=== PATIENT | female | born 1980 | race Hispanic/Latino ===

== ENCOUNTER → 2017-01-09 | Outpatient (CLI) | payer MEDICAID, OTHER ==
--- NOTE | 2017-01-09 19:19 | Diagnostic Imaging Report ---
OB ultrasound. INDICATION: Missed period. FINDINGS: There is a cystic area in the endometrial cavity with mean sac diameter of 7 mm. This would correspond with five weeks and 2 days of gestation and an JOÃO of 09/09/2017, presumably related to intrauterine . There is no embryo or yolk sac to confirm that this is indeed true intrauterine . Ovaries are not visualized. No definite adnexal mass demonstrated. IMPRESSION: Tiny cystic area in the endometrial stripe, without an embryo or yolk sac, could relate to an early normal , failed , or pseudo gestational sac of an ectopic . Followup serial beta-hCG and ultrasound in a week is recommended. Dictated by: Dictated on workstation # [id number]
== END ==
LOC: RAD 12:09
PROVIDERS: ATTEND Nurse Practitioner Family
DX: N92.6 Irregular menstruation, unspecified (principal)
CPT/HCPCS: 76817

== ENCOUNTER → 2017-01-19 | Outpatient (CLI) | payer MEDICAID ==
--- NOTE | 2017-01-19 16:53 | Diagnostic Imaging Report ---
INDICATION: Followup intrauterine . COMPARISON: 01/09/2017. FINDINGS: There is a single live intrauterine fetus present with crown-rump length measuring 6.5 mm consistent with a 6 week 4 day gestation. M-mode shows heartbeat of 120 beats per minute. No evidence of sub-chorionic fluid collections. IMPRESSION: 6 week 4 day live intrauterine . Dictated by: Dictated on workstation # [id number]
== END ==
LOC: RAD 13:53
PROVIDERS: ATTEND Family Medicine
DX: Z36 Encounter for antenatal screening of mother (principal); Z3A.01 Less than 8 weeks gestation of pregnancy
CPT/HCPCS: 76817

== ENCOUNTER 2017-02-23 18:17 | Emergency (ER) | payer MEDICAID ==
[~2017-02-23] VITALS: Ht 162.6 cm; Wt 86.2 kg
--- NOTE | 2017-02-23 18:59 | ED Psychosocial ---
General Chief Complaint: Psych/Social Disorder Stated Complaint: ANXIETY ATTACK Nursing Triage Note: Pt reported had a "panic attack" earlier today. Pt feeling improved now. Hx of 11 weeks . Source: patient Exam Limitations: no limitations History of Present Illness Time seen by provider: 18:56 Initial Comments To ER with reports of an anxiety attack that started about 440 p.m. today and lasted for about 15 minutes. At this time she feels better though not completely back to normal. She is 11 weeks . She was formerly on Klonopin and Paxil but discontinued these when she found out she was . Timing/Duration: constant Associated Symptoms: anxiety Allergies and Home Medications Allergies Coded Allergies: No Known Drug Allergies (Unverified , 02/23/17) Constitutional: see HPI EENTM: see HPI Respiratory: no symptoms reported Cardiovascular: no symptoms reported Genitourinary: no symptoms reported Musculoskeletal: no symptoms reported Skin: no symptoms reported Psychiatric/Neurological: See HPI, Anxiety Past Pdfgxtk-Hfptjm-Jkxvdu Hx Patient Social History Recent Foreign Travel: No Contact w/Someone Who Travel: No Recent Infectious Disease Expo: No Physical Exam Vital Signs Vital Sign - Last 12Hours 02/23/17 18:49 Temp 97.5 Pulse 82 Resp 16 B/P (MAP) 134/95 Pulse Ox 98 Capillary Refill : Less Than 3 Seconds General Appearance: WD/WN, no apparent distress HEENT: PERRL/EOMI, normal ENT inspection, TMs normal Neck: non-tender, full range of motion Respiratory: normal breath sounds, no respiratory distress, no accessory muscle use Gastrointestinal: normal bowel sounds, non tender, soft Neurologic/Psychiatric: alert, normal mood/affect, oriented x 3 Appearance/Memory: appropriate appearance, appropriate insight Behavior/Eye Contact: cooperative, good eye contact, normal speech Skin: normal color, warm/dry Progress/Results/Core Measures Results/Orders My Orders Orders - YESSI CUMMINGS APRN Diphenhydramine Tablet (Benadryl Tablet) (02/23/17 19:00) Medications Given in ED Current Medications Medications Dose Ordered Sig/Margot Route Start Time Stop Time Status Last Admin Dose Admin Diphenhydramine HCl 50 mg ONCE ONCE PO 02/23/17 19:00 02/23/17 19:01 DC 02/23/17 19:06 50 MG Vital Signs/I&O Vital Sign - Last 12Hours 02/23/17 18:49 Temp 97.5 Pulse 82 Resp 16 B/P (MAP) 134/95 Pulse Ox 98 Blood Pressure Mean: 108 Departure Communication Progress Notes 1923-feels back to normal Impression Impression: Primary Impression: Anxiety Disposition: 01 HOME, SELF-CARE Condition: Stable Departure-Patient Inst. Decision time for Depature: 18:58 Referrals: [facility] (PCP) Primary Care Physician LAZ DENSON MD (Family) Primary Care Physician Patient Instructions: Panic Disorder (DC) Add. Discharge Instructions: 1. You may take 1-2 Benadryl every 4-6 hours as needed for anxiety 2. Return to ER for any concerns All discharge instructions reviewed with patient and/or family. Voiced understanding. YESSI CUMMINGS CHISEL WORKER Feb 23, 2017 18:59
[2017-02-23] MEDS ORDERED: diphenhydrAMINE 25 MG TAB (BENADRYL) PO ONE (19:00)
[2017-02-23 19:25] VITALS: BP 0/0
== END 2017-02-23 19:25 | disposition home or self-care (01) ==
LOC: EDUNIT# 18:17 → ER 18:19
DX: F41.9 Anxiety disorder, unspecified (principal); Z3A.11 11 weeks gestation of pregnancy
CPT/HCPCS: 99283

== ENCOUNTER → 2017-04-24 | Outpatient (CLI) | payer MEDICAID ==
--- NOTE | 2017-04-24 13:10 | Diagnostic Imaging Report ---
INDICATION: survey. TECHNIQUE: Multiple real-time grayscale images were obtained over the gravid uterus. COMPARISON: None FINDINGS: heart rate is 158 beats per minute. The placenta is anterior. No placenta previa. The cervix is 3.8 cm in length and is closed. The bladder and two umbilical arteries are demonstrated. There is no ventriculomegaly. The posterior fossa is not well seen. No hydronephrosis or cystic mass at the level of the kidneys. The spine, four-chamber view and cord insertion are not well seen due to position. Biometrical measurements are as follows: Biparietal 4.7 cm, age 20 weeks 3 days. Head circumference 18.4 cm, age 20 weeks 6 days. Abdominal circumference 15.8 cm, age 21 weeks 0 days. Femur length 3.2 cm, age 20 weeks 2 days. Sonographic estimate age: 20 weeks 5 days. Sonographic estimated date of delivery: 08-06-17. Estimated Weight: 363 gm (+/- 53 gm). LMP percentile: 70%. heart rate: 158 beats per minute. number: 1 of 1. IMPRESSION: Incomplete survey. Reevaluation within two weeks is recommended for the spine, four-chamber view, cord insertion, and the posterior fossa and the brain. Dictated by: Dictated on workstation # [id number]
== END ==
LOC: RAD 09:44
PROVIDERS: ATTEND Family Medicine
DX: Z36 Encounter for antenatal screening of mother (principal); Z3A.16 16 weeks gestation of pregnancy
CPT/HCPCS: 76805

== ENCOUNTER → 2017-07-05 | Outpatient (CLI) | payer MEDICAID | LOC: LAB 09:39 | PROVIDERS: ATTEND Family Medicine | DX: R73.02 Impaired glucose tolerance (oral) (principal) | CPT/HCPCS: 36415; 82951; 82952; 82962 ==

== ENCOUNTER → 2017-08-08 | Outpatient (CLI) | payer MEDICAID ==
--- NOTE | 2017-08-08 21:23 | Diagnostic Imaging Report ---
INDICATION: Gestational diabetes. Follow-up growth. Follow-up spine and four-chamber view, cord insertion, posterior fossa and brain. TECHNIQUE: Multiple real-time grayscale images were obtained over the gravid uterus. COMPARISON: 04/24/2017. FINDINGS: heart rate is 165 beats per minute. The amniotic fluid index is 4.6 cm. position is cephalic. The placenta is anterior and to the right with no placenta previa. The cervix is 3.3 cm in length and appears to be closed. The spine and the four-chamber view appear unremarkable. The intracranial structures and cord are not well seen. The growth parameters are: Biparietal diameter: 32 weeks and 5 days, at 3rd percentile. Head circumference: 34 weeks and 4 days, at 7th percentile. Abdominal circumference: 34 weeks and 6 days at 45th percentile. Femur length: 33 weeks and 0 days 3rd percentile. These average at: 33 weeks and 6 days. This compares to gestational age of 35 weeks and 2 days based on JOÃO of 09/10/2017. The low amniotic fluid findings were called to the nurse taking care of the patient by Ms. Jessica Kahn, the technologist who performed the exam at 1325 hours. IMPRESSION: 1. The growth parameters are at the lower limits of normal. 2. The spine and four-chamber view are well seen at this time with no significant abnormality. The intracranial structures and the cord are not well seen. 3. Oligohydramnios. Dictated by: Dictated on workstation # [id number]
== END ==
LOC: RAD 12:24
PROVIDERS: ATTEND Family Medicine
DX: O24.419 Gestational diabetes mellitus in pregnancy, unspecified control (principal); O41.03X0 Oligohydramnios, third trimester, not applicable or unspecified; Z3A.33 33 weeks gestation of pregnancy
CPT/HCPCS: 76816

== ENCOUNTER → 2017-08-14 | Outpatient (CLI) | payer MEDICAID ==
--- NOTE | 2017-08-14 10:58 | Diagnostic Imaging Report ---
OB ultrasound, biophysical profile. INDICATION: Oligohydramnios. COMPARISON: 08/08/2017. FINDINGS: heart rate is 161 beats per minutes. The total CLARITA is 5.4 cm. The presentation is cephalic. The biophysical profile parameters are meeting criteria with score of 8 out of 8. The intracranial structures are still not seen on this exam, and the cord insertion is also not seen due to position and advanced age of the fetus. IMPRESSION: Total biophysical profile is 8 out of 8. Stable mild oligohydramnios. Dictated by: Dictated on workstation # [id number]
== END ==
LOC: RAD 09:40
PROVIDERS: ATTEND Family Medicine
DX: O24.410 Gestational diabetes mellitus in pregnancy, diet controlled (principal); O41.03X0 Oligohydramnios, third trimester, not applicable or unspecified; Z3A.00 Weeks of gestation of pregnancy not specified
CPT/HCPCS: 76819

== ENCOUNTER → 2017-08-20 | Outpatient (CLI) | payer MEDICAID ==
[~2017-08-20] VITALS: Ht 162.6 cm; Wt 96.6 kg
--- NOTE | 2017-08-20 14:01 | Diagnostic Imaging Report ---
EXAMINATION: OB ultrasound/biophysical profile. INDICATION: Cramping. FINDINGS: The heart rate is 153 BPM. The position is cephalic. The CLARITA is 6.8 cm. The placenta is anterior without placenta previa. The biophysical profile criteria are met with a total score of 8 out of 8 points. IMPRESSION: The total biophysical profile score is 8 out of 8 points. Dictated by: Dictated on workstation # [id number]
[2017-08-20 14:02] VITALS: BP 135/78
== END ==
LOC: RAD 12:45
PROVIDERS: ATTEND Family Medicine
DX: Z36.2 Encounter for other antenatal screening follow-up (principal); Z3A.36 36 weeks gestation of pregnancy
CPT/HCPCS: 76819

== ENCOUNTER → 2017-08-22 | Outpatient (CLI) | payer MEDICAID ==
--- NOTE | 2017-08-22 11:57 | Diagnostic Imaging Report ---
INDICATION: Gestational diabetes. TECHNIQUE: Multiple real-time grayscale images were obtained over the gravid uterus. COMPARISON: 08/20/17 FINDINGS: heart rate is 170 beats per minutes. The position is cephalic. The placenta is anterior with no placenta previa. CLARITA is 10.2 CM. Biometrical measurements are as follows: Biparietal 8.36 cm, age 33 weeks 5 days, less than the 2nd percentile. Head circumference 31.29 cm, age 35 weeks 1 days less than 2nd percentile. Abdominal circumference 31.59 cm, age 35 weeks 4 days, at 17th percentile. Femur length 6.96 cm, age 35 weeks 5 days, at 14th percentile. Sonographic estimate age: 35 weeks 1 days. Sonographic estimated date of delivery: 09/25/2017. Estimated Weight: 2647 gm (+/- 385 gm). LMP percentile: 13%. heart rate: 170 beats per minute. number: 1 of 1. IMPRESSION: The head circumference and biparietal diameter are both at less than 2nd percentile compared to the gestational age. Dictated by: Dictated on workstation # [id number]
== END ==
LOC: RAD 10:51
PROVIDERS: ATTEND Family Medicine
DX: O24.410 Gestational diabetes mellitus in pregnancy, diet controlled (principal); Z3A.35 35 weeks gestation of pregnancy
CPT/HCPCS: 76816

== ENCOUNTER 2017-08-26 18:18 | Inpatient (IN) | payer MEDICAID ==
[~2017-08-26] VITALS: Ht 162.6 cm; Wt 97.6 kg
[2017-08-26] VITALS (7 sets, daily range): BP systolic 136–162; BP diastolic 76–102
[2017-08-26] MEDS ORDERED: D5 1/2 NS 1000 ML IV SOLUTION 1,000 ML IV ONE ×2 (18:36→19:24)
[2017-08-26] MEDS ORDERED: MINERAL OIL CONCENTRATE 99.9% 15 ML UDC TOP PRN (18:45)
[2017-08-26] MEDS ORDERED: D5 1/2 NS 1000 ML IV SOLUTION 1,000 ML IV SCH (19:00)
[2017-08-26] MEDS ORDERED: DINOPROSTONE 10 MG (CERVIDIL) INSERT PV ONE (19:00)
[2017-08-26 19:17] LABS: BASOPHILS % (AUTO) 0 % (0-10); EOSINOPHILS # (AUTO) 0.1 10^3/uL (0.0-0.3); EOSINOPHILS % (AUTO) 1 % (0-10); LYMPHOCYTES % (AUTO) 31 % (12-44); MEAN CORPUSCULAR HEMOGLOBIN 31 PG (25-34); MEAN CORPUSCULAR HGB CONC 35 G/DL (32-36); MEAN CORPUSCULAR VOLUME 88 FL (80-99); MEAN PLATELET VOLUME 11.2 FL (7.4-10.4); MONOCYTES # (AUTO) 0.5 X 10^3 (0.0-1.0); MONOCYTES % (AUTO) 8 % (0-12); NEUTROPHILS % (AUTO) 61 % (42-75); PLATELET COUNT 210 10^3/uL (130-400); WHITE BLOOD COUNT 6.6 10^3/uL (4.3-11.0)
[2017-08-26 20:01] LABS: BILIRUBIN,URINE NEGATIVE (NEGATIVE); KETONES,URINE NEGATIVE (NEGATIVE); LEUKOCYTE ESTERASE ,URINE 2+ (NEGATIVE); NITRITE,URINE NEGATIVE (NEGATIVE); PH,URINE 6 (5-9); PROTEIN,URINE 2+ (NEGATIVE); UROBILINOGEN,URINE NORMAL (NORMAL)
[2017-08-26 20:15] LABS: SQUAMOUS EPITHELIAL CELL,UR 0-2 /HPF; WBC,URINE 0-2 /HPF
[2017-08-26] MEDS ORDERED: CATHETER FLUSH 10 ML SYR IV SCH (22:00)
[2017-08-27] VITALS (34 sets, daily range): BP systolic 125–194; BP diastolic 62–110
[2017-08-27] MEDS: D5 NS 1000 ML IV SOLUTION 1,000 ML IV SCH ×2 (03:05→10:45)
[2017-08-27] MEDS ORDERED: INFLUENZA TRIvalent 2017-2018 0.5 ML/45 MCG SYR IM ONE (07:30)
--- NOTE | 2017-08-27 07:30 | History & Physical-OB ---
OB - Chief Complaint & HPI Date/Time Date of Admission: Date of Admission: Aug 26, 2017 at 18:18 Time Seen by Provider: 07:25 Chief Complaint/History OB-Reason for Admission/Chief: Induction of Labor Hx : 1 Expected Date of Delivery: Sep 08, 2017 Gestational Age in Weeks: 38 Gestational Age in Days: 2 Indication for induction: medical complication (Diet Controlled DM, Oligo, IUGR ) Allergies and Home Medications Allergies Coded Allergies: No Known Drug Allergies (Unverified , 02/23/17) OB - History Hx of Present Care: Yes Ultrasounds: Normal mid trimester US Obstetrical Complications: Gestational Diabetes, Growth Restriction Medical Complications: None Information Induced Hypertension: No Maternal Gestational Diabetes: Yes Hemorrhage: No Obstetrical History Hx : 1 Delivery History Adverse Rxn to Tranfusion: No Patient Past Medical History PCOS Social History/Family History HIV/AIDS: No Recent Infectious Disease Expo: No Sexually Transmitted Disease: No Alcohol Use: Denies Use Recreational Drug Use: No 2nd Hand Smoke Exposure: No Immunizations Hepatitis A: Yes Hepatitis B: Yes Tetanus Booster (TDap): Less than 5yrs (06/21/17) Rubella: immune RPR/VDRL: Negative GBS Status: Negative HBsAG: Negative OB - Admission Exam Physical Exam Vitals: Vital Signs 08/27/17 08/27/17 04:00 07:00 Temp 98.5 Pulse 96 Resp 18 B/P (MAP) 162/91 O2 Delivery Room Air HEENT: NCAT Heart: Rhythm Normal Lungs: Clear Abdomen: Gravid Extremities: Normal Reflexes: Normal Cervical Dilatation: 5cm Effacement: 75% Station: -3 Membranes: Intact Accelerations: Accelerations Present Decelerations: No Decelerations Short Term Variability: Present Intensity: Moderate Labs Laboratory Tests Test 08/26/17 18:55 08/26/17 19:00 08/26/17 19:05 08/26/17 23:16 Range/Units White Blood Count 6.6 4.3-11.0 10^3/uL Red Blood Count 4.00 L 4.35-5.85 10^6/uL Hemoglobin 12.3 11.5-16.0 G/DL Hematocrit 35 35-52 % Mean Corpuscular Volume 88 80-99 FL Mean Corpuscular Hemoglobin 31 25-34 PG Mean Corpuscular Hemoglobin Concent 35 32-36 G/DL Red Cell Distribution Width 13.0 10.0-14.5 % Platelet Count 210 130-400 10^3/uL Mean Platelet Volume 11.2 H 7.4-10.4 FL Neutrophils (%) (Auto) 61 42-75 % Lymphocytes (%) (Auto) 31 12-44 % Monocytes (%) (Auto) 8 0-12 % Eosinophils (%) (Auto) 1 0-10 % Basophils (%) (Auto) 0 0-10 % Neutrophils # (Auto) 4.0 1.8-7.8 X 10^3 Lymphocytes # (Auto) 2.0 1.0-4.0 X 10^3 Monocytes # (Auto) 0.5 0.0-1.0 X 10^3 Eosinophils # (Auto) 0.1 0.0-0.3 10^3/uL Basophils # (Auto) 0.0 0.0-0.1 10^3/uL Urine Color YELLOW Urine Clarity CLEAR Urine pH 6 5-9 Urine Specific [place] 1.025 H 1.016-1.022 Urine Protein 2+ H NEGATIVE Urine Glucose (UA) 3+ H NEGATIVE Urine Ketones NEGATIVE NEGATIVE Urine Nitrite NEGATIVE NEGATIVE Urine Bilirubin NEGATIVE NEGATIVE Urine Urobilinogen NORMAL NORMAL MG/DL Urine Leukocyte Esterase 2+ H NEGATIVE Urine RBC (Auto) 1+ H NEGATIVE Urine RBC 0-2 /HPF Urine WBC 0-2 /HPF Urine Squamous Epithelial Cells 0-2 /HPF Urine Crystals NONE /LPF Urine Bacteria TRACE /HPF Urine Casts NONE /LPF Urine Mucus NEGATIVE /LPF Urine Culture Indicated NO Glucometer 125 H 111 H 70-110 MG/DL Test 08/27/17 03:03 Range/Units Glucometer 92 70-110 MG/DL OB - Assessment/Plan/Diagnosis Assessment Assessment: induction of labor Plan Plan: Induction Induction Method: per Misoprostol Protocol Other Plan 37 yo G1 @ 38.2 wga here for IOL for Diet controlled DM, Oligo and IUGR Plan - Cervidil removed this AM - Plan for Pitocin - Ok for epidural when patient requests - GDM: D5 running, blood sugars q 1hr in active labor - GBS neg - O neg, will need Rhogam after delivery Copy Copies To 1: LAZ DENSON MD, HOLLY R MD Aug 27, 2017 07:30
[2017-08-27] MEDS ORDERED: OXYTOCIN/NORMAL SALINE 500 ML IV SCH (07:55)
[2017-08-27] MEDS ORDERED: LIDOCAINE/EPI 2% 1:200,00 (XYLOCAINE) 10 ML VIAL ONE (10:52)
[2017-08-27] MEDS: OXYTOCIN/NORMAL SALINE 500 ML IV SCH ×2 (11:49→12:20)
--- NOTE | 2017-08-27 12:04 | OB Labor & Delivery Record ---
Vag Delivery Note Vag Delivery Note Date of Delivery: 08/27/17 Preoperative Diagnosis: Anaid Luna is a (37 /Para 1 / , Gestational Age (wks)38.2 with [ Diet controlled GDM, IUGR admitted for IOL] Postoperative Diagnosis: Same Surgeon: LAZ DENSON Production Estimator: [Alessandro Camejo, MS3] Anesthesia: [None] Delivery Type: [] Findings: [Term SGA male infant] Viable [Male] , apgars [6/8], weight [2610 grams, 5#12] Lacerations: None Intact placenta with 3 vessel cord. No nuchal cord, body cord or shoulder dystocia Estimated Blood Loss: [150] ml Complications: None Condition: Stable Description of Procedure: The patient is a 37 yo F who presented for IOL 11/30 to medical complications including GDM and IUGR. She was admitted and informed consent was obtained. Her labor course was unremarkable. She progressed to complete dilatation and began to push. She was then set up for delivery. The 's head was delivered atraumatically in the CARLY position. The shoulders and remainder of the infant's body were then delivered without difficulty. Upon delivery, infant was placed on mother's abdomen and the mouth and nares were bulb suctioned. The cord was doubly clamped and cut and the infant was handed off to the pediatric staff. An intact placenta with 3-vessel cord delivered via Curtis and there was found to be minimal bleeding.~ Vigorous fundal massage was performed and the fundus was found to be firm. IV oxytocin was started wide open. Examination of the vagina and perineum revealed no lacerations that required repaire. Sponge, instrument and needle counts were correct. Mom in stable condition in the labor suite. Baby required help with transition and was taken to nursery. Vitals - Labs Vital Signs - I&O Vital Signs Date Time Temp Pulse Resp B/P (MAP) Pulse Ox O2 Delivery O2 Flow Rate FiO2 08/27/17 09:50 81 18 185/99 Room Air 08/27/17 09:35 80 18 177/95 Room Air 08/27/17 09:18 78 18 150/83 Room Air 08/27/17 09:03 83 18 145/79 Room Air 08/27/17 08:48 76 18 153/85 Room Air 08/27/17 08:33 97.9 81 18 143/80 Room Air 08/27/17 07:13 89 18 149/90 Room Air 08/27/17 07:00 96 18 162/91 Room Air 08/27/17 06:00 97 18 129/77 Room Air 08/27/17 05:00 89 18 140/91 Room Air 08/27/17 04:00 98.5 79 18 137/76 Room Air 08/27/17 03:00 18 Room Air 08/27/17 02:00 99 18 136/79 Room Air 08/27/17 01:00 99 18 125/62 Room Air 08/27/17 00:00 98 18 144/65 Room Air 08/26/17 23:00 88 18 146/81 Room Air 08/26/17 22:00 85 18 136/76 Room Air 08/26/17 21:00 86 18 136/78 Room Air 08/26/17 20:00 88 18 141/88 Room Air 08/26/17 19:00 83 20 156/91 Room Air 08/26/17 18:41 90 20 144/82 Room Air 08/26/17 18:18 98.2 96 20 162/102 Room Air Labs Laboratory Tests 08/26/17 18:55: White Blood Count 6.6, Red Blood Count 4.00L, Hemoglobin 12.3, Hematocrit 35, Mean Corpuscular Volume 88, Mean Corpuscular Hemoglobin 31, Mean Corpuscular Hemoglobin Concent 35, Red Cell Distribution Width 13.0, Platelet Count 210, Mean Platelet Volume 11.2H, Neutrophils (%) (Auto) 61, Lymphocytes (%) (Auto) 31 , Monocytes (%) (Auto) 8, Eosinophils (%) (Auto) 1, Basophils (%) (Auto) 0, Neutrophils # (Auto) 4.0, Lymphocytes # (Auto) 2.0, Monocytes # (Auto) 0.5, Eosinophils # (Auto) 0.1, Basophils # (Auto) 0.0 08/26/17 19:00: Urine Color YELLOW, Urine Clarity CLEAR, Urine pH 6, Urine Specific [place] 1.025H, Urine Protein 2+H, Urine Glucose (UA) 3+H, Urine Ketones NEGATIVE, Urine Nitrite NEGATIVE, Urine Bilirubin NEGATIVE, Urine Urobilinogen NORMAL, Urine Leukocyte Esterase 2+H, Urine RBC (Auto) 1+H, Urine RBC 0-2, Urine WBC 0-2 , Urine Squamous Epithelial Cells 0-2, Urine Crystals NONE, Urine Bacteria TRACE , Urine Casts NONE, Urine Mucus NEGATIVE, Urine Culture Indicated NO 08/26/17 19:05: Glucometer 125H 08/26/17 23:16: Glucometer 111H 08/27/17 03:03: Glucometer 92 08/27/17 07:24: Glucometer 91 08/27/17 10:10: Glucometer 88 08/27/17 11:03: Glucometer 98 LAZ DENSON MD Aug 27, 2017 12:04
[2017-08-27] MEDS ORDERED: BENZOCAINE/MENTHOL (DERMOPLAST) 56 ML CAN TP PRN (12:15)
[2017-08-27] MEDS ORDERED: TETANUS,DIPTH,PERTUSS P/F (BOOSTRIX) 0.5 ML VIAL IM ONE (12:15)
[2017-08-27] MEDS ORDERED: MEASLES,MUMPS,RUBELLA 1 EA INJ SQ ONE (12:15)
[2017-08-27] MEDS ORDERED: WITCH HAZEL(TUCKS) 40 EA JAR TOP PRN (12:15)
[2017-08-27] MEDS: IBUPROFEN 600 MG (MOTRIN) TAB PO SCH ×2 (13:20→19:58)
[2017-08-27] MEDS ORDERED: CATHETER FLUSH 10 ML SYR IV SCH (14:00)
[2017-08-28] VITALS: BP 103/59
[2017-08-28] MEDS: IBUPROFEN 600 MG (MOTRIN) TAB PO SCH ×4 (01:48→20:28)
[2017-08-28 03:50] VITALS: BP 104/68
[2017-08-28 05:41] LABS: BASOPHILS % (AUTO) 0 % (0-10); EOSINOPHILS # (AUTO) 0.1 10^3/uL (0.0-0.3); EOSINOPHILS % (AUTO) 1 % (0-10); LYMPHOCYTES # (AUTO) 2.1 X 10^3 (1.0-4.0); LYMPHOCYTES % (AUTO) 23 % (12-44); MEAN CORPUSCULAR HEMOGLOBIN 30 PG (25-34); MEAN CORPUSCULAR HGB CONC 34 G/DL (32-36); MEAN CORPUSCULAR VOLUME 89 FL (80-99); MEAN PLATELET VOLUME 10.8 FL (7.4-10.4); MONOCYTES # (AUTO) 0.7 X 10^3 (0.0-1.0); MONOCYTES % (AUTO) 7 % (0-12); NEUTROPHILS # (AUTO) 6.5 X 10^3 (1.8-7.8); NEUTROPHILS % (AUTO) 70 % (42-75); PLATELET COUNT 196 10^3/uL (130-400); RED BLOOD COUNT 3.74 10^6/uL (4.35-5.85); RED CELL DISTRIBUTION WIDTH 13.4 % (10.0-14.5); WHITE BLOOD COUNT 9.4 10^3/uL (4.3-11.0)
[2017-08-28] MEDS ORDERED: INFLUENZA TRIvalent 2017-2018 0.5 ML/45 MCG SYR IM ONE (07:55)
[2017-08-28 08:07] VITALS: BP 122/87
--- NOTE | 2017-08-28 09:48 | Progress Note (SOAP) ---
Subjective Subjective/Events-last exam BP improved. Lochia decreased; no complaints. Review of Systems Date Seen by Provider: Aug 28, 2017 Time Seen by Provider: 09:48 Objective Exam Last Set of Vital Signs Vital Signs Date Time Temp Pulse Resp B/P (MAP) Pulse Ox O2 Delivery O2 Flow Rate FiO2 08/28/17 08:07 97.6 90 18 122/87 98 Room Air Capillary Refill : General: Alert, Oriented X3, Cooperative Psych/Mental Status: Mood NL Results/Procedures Lab Laboratory Tests 08/27/17 10:10: Glucometer 88 08/27/17 11:03: Glucometer 98 08/28/17 05:20: White Blood Count 9.4, Red Blood Count 3.74L, Hemoglobin 11.3L, Hematocrit 33L, Mean Corpuscular Volume 89, Mean Corpuscular Hemoglobin 30, Mean Corpuscular Hemoglobin Concent 34, Red Cell Distribution Width 13.4, Platelet Count 196, Mean Platelet Volume 10.8H, Neutrophils (%) (Auto) 70, Lymphocytes (%) (Auto) 23 , Monocytes (%) (Auto) 7, Eosinophils (%) (Auto) 1, Basophils (%) (Auto) 0, Neutrophils # (Auto) 6.5, Lymphocytes # (Auto) 2.1, Monocytes # (Auto) 0.7, Eosinophils # (Auto) 0.1, Basophils # (Auto) 0.0 Assessment/Plan Assessment/Plan Plan 1. PPD#1 s/p 08/27/17; IOL at 38w2d for GDM - diet controlled; oligo, microcephaly on US - BP elevated immediately after delivery; resolved - pp Hb 11.3 - O neg; will receive RhoGam; baby O+ Clinical Quality Measures DVT/VTE Risk/Contraindication: Risk Factor Score Per Nursin RFS Level Per Nursing on Admit: 2=Moderate LARA MILLIGAN DO Aug 28, 2017 09:48
[2017-08-28 14:52] VITALS: BP 114/77
[2017-08-28 20:28] VITALS: BP 120/77
[2017-08-29 03:00] VITALS: BP 129/83
[2017-08-29] MEDS: IBUPROFEN 600 MG (MOTRIN) TAB PO SCH ×3 (05:19→11:09)
[2017-08-29 08:30] VITALS: BP 118/76
--- NOTE | 2017-08-29 09:55 | Discharge Summary ---
Diagnosis/Chief Complaint Date of Admission Aug 26, 2017 at 18:18 Date of Discharge Aug 29, 2017 Admission Diagnosis Admission Diagnosis IOL at 38w2d for GDM - diet controlled; oligo, microcephaly on US Discharge Diagnosis PPD#2 s/p 08/27/17; IOL at 38w2d for GDM - diet controlled; oligo, microcephaly on US - BP elevated immediately after delivery; resolved - pp Hb 11.3 - O neg; will receive RhoGam; baby O+ - routine post- care Discharge Summary-OBS Procedures None. Discharge Physical Examination Allergies: Coded Allergies: No Known Drug Allergies (Unverified , 02/23/17) Vitals & I&Os Vital Sign - Last 12Hours Date Time Temp Pulse Resp B/P (MAP) Pulse Ox O2 Delivery O2 Flow Rate FiO2 08/29/17 03:00 98.6 88 18 129/83 98 Room Air General Appearance: Alert, Oriented X3, Cooperative Psych/Mental Status: Mood NL Hospital Course Routine pp care Discharge Instructions to patient/family Please see electronic discharge instructions given to patient. Discharge Medications Reviewed and agree with Discharge Medication list on patient's Discharge Instruction sheet Clinical Quality Measures DVT/VTE Risk/Contraindication: Risk Factor Score Per Nursin RFS Level Per Nursing on Admit: 2=Moderate Copy Copies To 1: LAZ DENSON MD, LINDA K DO Aug 29, 2017 09:55
[2017-08-29] MEDS ORDERED: IBUP-1773 PO (09:56)
--- NOTE | 2017-08-29 09:57 | Discharge Instructions ---
Discharge Inst-Women[facility] Serv Depart Medications New, Converted or Re-Newed RX: Call to Patients Pharmacy New Medications: Ibuprofen (Ibuprofen) 600 Mg Tablet 600 MG PO Q6H PRN for CRAMPS, #90 TAB 1 Refill Follow Up/Instructions Goal/Follow Up: Follow-up with Dr. Crane in 6wk Activity Activity: Activity as Tolerated Driving Instructions: You May Drive Nothing Inside Vagina: No Douching, No [place], No Tampons Diet Discharge Diet: No Restrictions Symptoms to Report to : Bleeding Excessive, Pain Increased, Fever Over 101 Degrees F, Vaginal Bleeding Increase, Vaginal Discharge Foul, Shortness of Breath For Any Problems or Questions: Contact Your Physician Copies To 1: LAZ CRANE MD, LINDA K DO Aug 29, 2017 09:57
[2017-08-29 11:50] VITALS: BP 123/82
== END 2017-08-29 13:45 | disposition home or self-care (01) | DRG 775 ==
LOC: LDRP 18:18
PROVIDERS: ADMIT Family Medicine; ATTEND Family Medicine
PROC: 3E0P7GC Introduction of Other Therapeutic Substance into Female Reproductive, Via Natural or Artificial Opening (ICD-10-PCS; 2017-08-26)
PROC: 10E0XZZ Delivery of Products of Conception, External Approach (ICD-10-PCS; principal; 2017-08-27)
DX: O24.420 Gestational diabetes mellitus in childbirth, diet controlled (principal); O41.03X0 Oligohydramnios, third trimester, not applicable or unspecified; O36.5930 Maternal care for other known or suspected poor fetal growth, third trimester, not applicable or unspecified; Z37.0 Single live birth; Z3A.38 38 weeks gestation of pregnancy; Z23 Encounter for immunization
CPT/HCPCS: 36415; 81000; 82962; 83033; 85025; 86850; 86900; 86901

== ENCOUNTER 2018-07-01 18:47 | Emergency (ER) | payer MEDICAID ==
[~2018-07-01] VITALS: Ht 162.6 cm; Wt 97.6 kg
[~2018-07-01 18:47] MED LIST: IBUP-1773 PO
--- OUTSIDE RECORDS SUMMARY | 2018-07-01 18:52 | XMS REPORT ---
Author Author HANS WILCOX [facility] Address [address] [place] [address] Care Team Providers Care Elevator Attendant Name Role Phone HANS WILCOX Unavailable PROBLEMS Type Condition ICD9-CM Code BYX63-ON Code Onset Dates Condition Status SNOMED Code Problem Seasonal allergies J30.2 Active 973849734 Problem Reactive airway disease without complication, unspecified asthma severity, unspecified whether persistent J45.909 Active 888290423732 Problem Anxiety F41.9 Active 56566662 Problem Mild episode of recurrent major depressive disorder F33.0 Active 582618553 ALLERGIES No Known Allergies ENCOUNTERS Encounter Location Date Diagnosis [facility] [id number] [place] [address] Mar, Hoarseness R49.0 and Seasonal allergies J30.2 [facility] [address] [place] [address]- 5[address] February, Well woman exam with routine gynecological exam Z01.419 [place] [address] [address] 04 Jan, 2018 Reactive airway disease without complication, unspecified asthma severity, unspecified whether persistent J45.909 and Sore throat J02.9 [facility] [id number] [place] [address]50 Nov, [address] [address] Sep, care and examination Z39.2 ; Encounter for Depo- Provera contraception Z30.42 and control counseling Z30.09 [place] [address] [address] Aug, [place] [address] [address] Aug, [facility] [address] [address] Aug, [facility] [address], [place] [address] Aug, [place] [address] [address] Jul, [facility] [address], [place] [address] Jul, 37 weeks gestation of Z3A.37 and 36 weeks gestation of Z3A.36 [place] [address], [place] [address] Jul, Normal , first Z34.00 ; Oligohydramnios in third trimester, single or unspecified fetus O41.03X0 ; Diet controlled gestational diabetes mellitus (GDM), antepartum O24.410 ; 37 weeks gestation of Z3A.37 and Third trimester Z34.93 [place] [address], [place] [address] Jul, Oligohydramnios in third trimester, single or unspecified fetus O41.03X0 [place] [address], [place] [address] Jul, [place] [address], [place] [address] Jul, 36 weeks gestation of Z3A.36 ; Oligohydramnios in third trimester, single or unspecified fetus O41.03X0 ; Diet controlled gestational diabetes mellitus (GDM), antepartum O24.410 and Third trimester Z34.93 [facility] [address] [address] Jul, Oligohydramnios in third trimester, single or unspecified fetus O41.03X0 ; Diet controlled gestational diabetes mellitus (GDM) in third trimester O24.410 and Elderly primigravida in third trimester O09.513 [facility] [address], [place] [address] 11 Jul, 2017 Normal , first Z34.00 ; 35 weeks gestation of Z3A.35 ; Third trimester Z34.93 ; Diet controlled gestational diabetes mellitus (GDM) in third trimester O24.410 and Advanced maternal age, primigravida in third trimester, antepartum O09.513 [facility] [id number] [address] 10 Jul, 2017 [place] [id number] [place] [address] 88363- 8674 Jul, Gestational diabetes mellitus (GDM) in second trimester, gestational diabetes method of control unspecified O24.419 [place] [address], [place] [address] Jul, [place] [id number] [place] [address]1094- 3770 Jul, 34 weeks gestation of Z3A.34 ; Gestational diabetes mellitus (GDM) in second trimester, gestational diabetes method of control unspecified O24.419 ; Third trimester Z34.93 and Advanced maternal age, primigravida in third trimester, antepartum O09.513 [facility] [address], [place] [address] Jun, [facility] [id number] [place] [address]30- 1796 Jun, [place] [address], [place] [address] Jun, [place] [id number] [place] [address] 81907- 99[address] Jun, Third trimester Z34.93 ; 32 weeks gestation of Z3A.32 and Diet controlled gestational diabetes mellitus (GDM) in third trimester O24.410 [place] [id number] [place] [address] 19863- 7233 Jun, [place] [address] [place] [address] 54343- 7881 Jun, Normal , first Z34.00 ; Encounter for immunization Z23 ; 30 weeks gestation of Z3A.30 and Diet controlled gestational diabetes mellitus (GDM), antepartum O24.410 [place] [id number] [place] [address] 56695- 9638 Jun, Glucose tolerance test abnormal R73.02 [place] [id number] [place] [address] 65592- 8277 May, Gestational diabetes mellitus (GDM) in second trimester, gestational diabetes method of control unspecified O24.419 [place] [id number] [place] [address] 05612- 8322 May, [place] [id number] [place] [address] 54619- 3472 May, [place] [id number] [place] [address] 74130- 9459 May, Acute pharyngitis, unspecified etiology J02.9 [place] [id number] [place] [address] 42205- 0807 May, Second trimester Z33.1 and 28 weeks gestation of Z3A.28 [address] [id number] [place] [address] 55013- 8762 Apr, [place] [id number] [place] [address] 77298- 2956 Apr, care in second trimester Z34.92 ; Abnormal chromosomal and genetic finding on screening mother O28.5 ; 24 weeks gestation of Z3A.24 and Advanced maternal age, 1st , second trimester O09.512 [place] [address] [place] [address] 67820- 5583 Mar, 20 weeks gestation of Z3A.20 ; Second trimester Z33.1 and Abnormal chromosomal and genetic finding on screening mother O28.5 [place] [id number] [place] [address]59- 4706 February, Dental examination Z01.20 [place] [id number] [place] [address] 23603- 6609 February, 16 weeks gestation of Z3A.16 and Second trimester Z33.[address] [address]- [address] February, Normal , first Z34.00 ; 12 weeks gestation of Z3A.12 ; Advanced maternal age, primigravida in first trimester, antepartum O09.511 and First trimester Z33.1 [place] [id number] [place] [address]55- 4203 Jan, care in first trimester Z34.91 ; Normal , first Z34.00 and 8 weeks gestation of Z3A.08 [place] [id number] [place] [address] 31421- 0500 Dec, Less than 8 weeks gestation of Z3A.[address] [address]- [address] Dec, Encounter to establish care Z76.89 ; Anxiety F41.9 ; Mild episode of recurrent major depressive disorder F33.0 ; History of colitis Z87.19 ; Missed period N92.6 and Less than 8 weeks gestation of Z3A.01 IMMUNIZATIONS No Known Immunizations SOCIAL HISTORY Never Assessed REASON FOR VISIT congestion/sore throat/cough for 3 days. [email or web address] PLAN OF CARE Activity Details Follow Up prn Reason: VITAL SIGNS Height 62.5 in 2018-03-29 Weight 185.6 lbs 2018-03-29 Temperature 97.9 degrees Fahrenheit 2018-03-29 Heart Rate 80 bpm 2018-03-29 Respiratory Rate 20 2018-03-29 BMI 33.40 kg/m2 2018-03-29 Blood pressure systolic 130 mmHg 2018-03-29 Blood pressure diastolic 78 mmHg 2018-03-29 MEDICATIONS Medication Instructions Dosage Frequency Start Date End Date Duration Status Ortho Tri-Cyclen Lo 0.18/0.215/0.25 MG-25 MCG Orally Once a day 1 tablet 24h Nov, 28 day(s) Active PredniSONE 5 MG (21) Orally Once a day as directed 24h Mar, Active RESULTS No Results PROCEDURES No Known procedures INSTRUCTIONS MEDICATIONS ADMINISTERED No Known Medications MEDICAL (GENERAL) HISTORY Type Description Date Medical History depression Medical History anxiety Medical History chronic pain Medical History sigmoid colitis Medical History right knee lateral ligament avulsuion injury- proximal fibula Medical History pcos Medical History Umbilical Hernia Surgical History appendectomy 1989 Hospitalization History surgeries Hospitalization History swollen colon 2011 Hospitalization History cyst on ovaries 1995
--- OUTSIDE RECORDS SUMMARY | 2018-07-01 18:53 | XMS REPORT ---
Author Author LAZ DENSON Organization [facility] Address [address] [place] [address] Care Team Providers Care Plant Associate Name Role Phone LAZ DENSON Unavailable PROBLEMS Type Condition ICD9-CM Code UFI30-WI Code Onset Dates Condition Status SNOMED Code Problem Seasonal allergies J30.2 Active 781110126 Problem Reactive airway disease without complication, unspecified asthma severity, unspecified whether persistent J45.909 Active 184055776601 Problem Anxiety F41.9 Active 69481988 Problem Mild episode of recurrent major depressive disorder F33.0 Active 825662505 ALLERGIES No Information ENCOUNTERS Encounter Location Date Diagnosis [facility] [id number] [place] [address] Mar, Hoarseness R49.0 and Seasonal allergies J30.2 [facility] [address] [address]- [address] February, Well woman exam with routine gynecological exam Z01.419 [place] [id number] [place] [address] 55128- 5495 04 Jan, 2018 Reactive airway disease without complication, unspecified asthma severity, unspecified whether persistent J45.909 and Sore throat J02.9 [facility] [id number] [place] [address] 15809- 8318 19 Nov, 2017 [place] [address] [address]- 8[address] 13 Sep, 2017 care and examination Z39.2 ; Encounter for Depo- Provera contraception Z30.42 and control counseling Z30.09 [place] [address] [place] [address] 37131- 7053 Aug, [place] [address], [place] [address]- 5168 Aug, [place] [address], [place] [address]- 2569 Aug, [facility] [address], [place] [address]- 3898 Aug, [place] [address], [place] [address]- 8[address] Jul, [place] [address], [place] [address]- 8727 Jul, 37 weeks gestation of Z3A.37 and 36 weeks gestation of Z3A.36 [place] [address], [place] [address]- [address] Jul, Normal , first Z34.00 ; Oligohydramnios in third trimester, single or unspecified fetus O41.03X0 ; Diet controlled gestational diabetes mellitus (GDM), antepartum O24.410 ; 37 weeks gestation of Z3A.37 and Third trimester Z34.93 [place] [address], [place] [address] Jul, Oligohydramnios in third trimester, single or unspecified fetus O41.03X0 [place] [address], [place] [address]- 67[address] Jul, [place] [address], [place] [address]- [address] Jul, 36 weeks gestation of Z3A.36 ; Oligohydramnios in third trimester, single or unspecified fetus O41.03X0 ; Diet controlled gestational diabetes mellitus (GDM), antepartum O24.410 and Third trimester Z34.93 [place] [address], [place] [address]- 2530 Jul, Diet controlled gestational diabetes mellitus (GDM) in third trimester O24.410 ; Oligohydramnios in third trimester, single or unspecified fetus O41.03X0 and Elderly primigravida in third trimester O09.513 [facility] [address], [place] [address]- 6416 Jul, Normal , first Z34.00 ; 35 weeks gestation of Z3A.35 ; Third trimester Z34.93 ; Diet controlled gestational diabetes mellitus (GDM) in third trimester O24.410 and Advanced maternal age, primigravida in third trimester, antepartum O09.513 [facility] [address] [place] [address] 92245- 5831 Jul, [place] [address] [place] [address] 80600- 3345 Jul, Gestational diabetes mellitus (GDM) in second trimester, gestational diabetes method of control unspecified O24.419 [place] [address] [place] [address] 74339- 9996 Jul, [place] [address] [place] [address] 12369- 3484 Jul, 34 weeks gestation of Z3A.34 ; Gestational diabetes mellitus (GDM) in second trimester, gestational diabetes method of control unspecified O24.419 ; Third trimester Z34.93 and Advanced maternal age, primigravida in third trimester, antepartum O09.513 [place] [address], [place] [address]- 4316 Jun, [facility] [address] [place] [address] 60452- 1162 Jun, [place] [address] [place] [address] 15850- 2865 Jun, [place] [address] [place] [address] 89439- 9630 Jun, Third trimester Z34.93 ; 32 weeks gestation of Z3A.32 and Diet controlled gestational diabetes mellitus (GDM) in third trimester O24.410 [place] [address] [place] [address] 49781- 3505 Jun, [place] [address] [place] [address] 77620- 7466 Jun, Normal , first Z34.00 ; Encounter for immunization Z23 ; 30 weeks gestation of Z3A.30 and Diet controlled gestational diabetes mellitus (GDM), antepartum O24.410 [id number] [place] [address] 65352- 8746 Jun, Glucose tolerance test abnormal R73.02 [place] [address] [place] [address] 56963- 6782 May, Gestational diabetes mellitus (GDM) in second trimester, gestational diabetes method of control unspecified O24.419 [place] [address] [place] [address] 65477- 2150 May, [place] [place] [id number] [place] [address] 95516- 8977 May, [place] [address] [place] [address] 20007- 9776 May, Acute pharyngitis, unspecified etiology J02.9 [address] [place] [id number] [place] [address] 14232- 9973 May, Second trimester Z33.1 and 28 weeks gestation of Z3A.28 [place] [place] [id number] [place] [address] 23543- 6644 Apr, [place] [id number] [place] [address] 77838- 6767 Apr, care in second trimester Z34.92 ; Abnormal chromosomal and genetic finding on screening mother O28.5 ; 24 weeks gestation of Z3A.24 and Advanced maternal age, 1st , second trimester O09.512 [place] [address] [place] [address] 43330- 5357 Mar, 20 weeks gestation of Z3A.20 ; Second trimester Z33.1 and Abnormal chromosomal and genetic finding on screening mother O28.5 [place] [address] [place] [address] 08882- 0338 February, Dental examination Z01.20 [place] [address] [place] [address] 85044- 8520 February, 16 weeks gestation of Z3A.16 and Second trimester Z33.1 [place] [address] 70467- 7047 February, Normal , first Z34.00 ; 12 weeks gestation of Z3A.12 ; Advanced maternal age, primigravida in first trimester, antepartum O09.511 and First trimester Z33.1 [place] [address] [place] [address] 83345- 2853 Jan, care in first trimester Z34.91 ; Normal , first Z34.00 and 8 weeks gestation of Z3A.08 [place] [address] [place] [address] 43431- 4438 Dec, Less than 8 weeks gestation of Z3A.01 [place] [address] [place] [address] 50040- 4070 07 Dec, 2016 Encounter to establish care Z76.89 ; Anxiety F41.9 ; Mild episode of recurrent major depressive disorder F33.0 ; History of colitis Z87.19 ; Missed period N92.6 and Less than 8 weeks gestation of Z3A.01 IMMUNIZATIONS No Known Immunizations SOCIAL HISTORY Never Assessed REASON FOR VISIT PLAN OF CARE VITAL SIGNS MEDICATIONS No Known Medications RESULTS No Results PROCEDURES No Known procedures [...]
--- OUTSIDE RECORDS SUMMARY | 2018-07-01 18:53 | XMS REPORT ---
Author Author LAZ DENSON Organization [facility] [place] Address [address] [place] [address] Care Team Providers Care Cable Assembler Name Role Phone LAZ DENSON Unavailable PROBLEMS Type Condition ICD9-CM Code HBW28-KK Code Onset Dates Condition Status SNOMED Code Problem Reactive airway disease without complication, unspecified asthma severity, unspecified whether persistent J45.909 Active 700507804875 Problem Anxiety F41.9 Active 47610868 Problem Mild episode of recurrent major depressive disorder F33.0 Active 058146800 ALLERGIES No Information ENCOUNTERS Encounter Location Date Diagnosis [place] [id number] [place] [address]16- 5495 February, Well woman exam with routine gynecological exam Z01.419 [place] [id number] [place] [address] 25694- 4878 04 Jan, 2018 Reactive airway disease without complication, unspecified asthma severity, unspecified whether persistent J45.909 and Sore throat J02.9 [place] [id number] [place] [address] 40931- 9040 Nov, [facility] [place] [id number] [place] [address] 52454- 9195 13 Sep, 2017 care and examination Z39.2 ; Encounter for Depo- Provera contraception Z30.42 and control counseling Z30.09 [place] [id number] [place] [address] 85090- 9892 Aug, [place] [id number] [place] [address] 99646- 9731 14 Aug, 2017 [place] [id number] [place] [address] 24034- 7119 Aug, [place] [id number] [address] 9[address] Aug, [place] [id number] [address] 6[address] Jul, [facility] [place] [address] [address] Jul, 37 weeks gestation of Z3A.37 and 36 weeks gestation of Z3A.36 [place] [address] [address] Jul, Normal , first Z34.00 ; Oligohydramnios in third trimester, single or unspecified fetus O41.03X0 ; Diet controlled gestational diabetes mellitus (GDM), antepartum O24.410 ; 37 weeks gestation of Z3A.37 and Third trimester Z34.93 [place] [address] [address] Jul, Oligohydramnios in third trimester, single or unspecified fetus O41.03X0 [place] [id number] [address] 2964 Jul, [place] [id number] [address] 8[address] Jul, 36 weeks gestation of Z3A.36 ; Oligohydramnios in third trimester, single or unspecified fetus O41.03X0 ; Diet controlled gestational diabetes mellitus (GDM), antepartum O24.410 and Third trimester Z34.93 [place] [address] [place] [id number] [address] Jul, Oligohydramnios in third trimester, single or unspecified fetus O41.03X0 ; Diet controlled gestational diabetes mellitus (GDM) in third trimester O24.410 and Elderly primigravida in third trimester O09.513 [place] [address] [place] [id number] [address] Jul, Normal , first Z34.00 ; 35 weeks gestation of Z3A.35 ; Third trimester Z34.93 ; Diet controlled gestational diabetes mellitus (GDM) in third trimester O24.410 and Advanced maternal age, primigravida in third trimester, antepartum O09.513 [facility] [place] [id number] [address] Jul, [facility] [place] [address] [place] [address] 07088- 7741 Jul, Gestational diabetes mellitus (GDM) in second trimester, gestational diabetes method of control unspecified O24.419 [facility] [place] [id number] [address]- 5[address] Jul, [facility] [place] [id number] [place] [address] 63106- 0382 Jul, 34 weeks gestation of Z3A.34 ; Gestational diabetes mellitus (GDM) in second trimester, gestational diabetes method of control unspecified O24.419 ; Third trimester Z34.93 and Advanced maternal age, primigravida in third trimester, antepartum O09.513 [facility] [place] [id number] [address] 1598 Jun, [facility] [place] [id number] [place] [address] 30660- 5067 Jun, [facility] [place] [id number] [address] 2314 Jun, [facility] [place] [id number] [place] [address] 46064- 7828 Jun, Third trimester Z34.93 ; 32 weeks gestation of Z3A.32 and Diet controlled gestational diabetes mellitus (GDM) in third trimester O24.410 [facility] [place] [address] [address]- 0624 Jun, [facility] [place] [address] [address]- 5008 Jun, Normal , first Z34.00 ; Encounter for immunization Z23 ; 30 weeks gestation of Z3A.30 and Diet controlled gestational diabetes mellitus (GDM), antepartum O24.410 [place] [id number] [place] [address] 49620- 2676 Jun, Glucose tolerance test abnormal R73.02 [place] [id number] [place] [address] 76889- 5349 May, Gestational diabetes mellitus (GDM) in second trimester, gestational diabetes method of control unspecified O24.419 [place] [id number] [place] [address] 21530- 6842 May, [place] [id number] [place] [address] 76327- 9591 May, [place] [id number] [place] [address] 33950- 7171 May, Acute pharyngitis, unspecified etiology J02.9 [place] [id number] [place] [address] 82745- 0492 May, Second trimester Z33.1 and 28 weeks gestation of Z3A.28 [place] [id number] [place] [address] 60110- 9574 Apr, [place] [id number] [place] [address] 93994- 0204 Apr, care in second trimester Z34.92 ; Abnormal chromosomal and genetic finding on screening mother O28.5 ; 24 weeks gestation of Z3A.24 and Advanced maternal age, 1st , second trimester O09.512 [place] [address] [place] [address] 21932- 7333 Mar, 20 weeks gestation of Z3A.20 ; Second trimester Z33.1 and Abnormal chromosomal and genetic finding on screening mother O28.5 [place] [id number] [place] [address] 67149- 8357 February, Dental examination Z01.20 [place] [address] [place] [address]- 5928 February, 16 weeks gestation of Z3A.16 and Second trimester Z33.1 [place] [id number] [place] [address] 41860- 5312 February, Normal , first Z34.00 ; 12 weeks gestation of Z3A.12 ; Advanced maternal age, primigravida in first trimester, antepartum O09.511 and First trimester Z33.1 [place] [id number] [place] [address] 12905- 9298 Jan, care in first trimester Z34.91 ; Normal , first Z34.00 and 8 weeks gestation of Z3A.08 [place] [id number] [place] [address] 81421- 6052 Dec, Less than 8 weeks gestation of Z3A.01 [place] [id number] [place] [address] 16640- 9909 Dec, Encounter to establish care Z76.89 ; Anxiety F41.9 ; Mild episode of recurrent major depressive disorder F33.0 ; History of colitis Z87.19 ; Missed period N92.6 and Less than 8 weeks gestation of Z3A.01 IMMUNIZATIONS No Known Immunizations SOCIAL HISTORY Never Assessed REASON FOR VISIT med PLAN OF CARE VITAL SIGNS MEDICATIONS Medication Instructions Dosage Frequency Start Date End Date Duration Status Anusol-HC 2.5 % Rectal Twice a day 1 application to affected area 12h Aug, Sep, 30 day(s) Active RESULTS No Results PROCEDURES No Known [...]
--- OUTSIDE RECORDS SUMMARY | 2018-07-01 18:53 | XMS REPORT ---
Author Author LAZ DENSON Organization [facility] Address [address] [place] [address] Care Team Providers Care Credit Underwriter Name Role Phone LAZ DENSON Unavailable PROBLEMS Type Condition ICD9-CM Code [id number] Code Onset Dates Condition Status SNOMED Code Problem Seasonal allergies J30.2 Active 442923797 Problem Reactive airway disease without complication, unspecified asthma severity, unspecified whether persistent J45.909 Active 368111181050 Problem Anxiety F41.9 Active 82514096 Problem Mild episode of recurrent major depressive disorder F33.0 Active 087879259 ALLERGIES No Information ENCOUNTERS Encounter Location Date Diagnosis [facility] [id number] [place] [address] 08805 -9779 Mar, Hoarseness R49.0 and Seasonal allergies J30.2 [facility] [address] 42870- 2789 February, Well woman exam with routine gynecological exam Z01.419 [place] [id number] [place] [address] 75369- 7975 04 Jan, 2018 Reactive airway disease without complication, unspecified asthma severity, unspecified whether persistent J45.[address]9 [facility] [id number] [place] [address] 05940- 0019 19 Nov, 2017 [place] [address] 70221- 1180 13 Sep, 2017 care and examination Z39.2 ; Encounter for Depo- Provera contraception Z30.42 and control counseling Z30.09 [place] [id number] [place] [address] 59756- 4390 Aug, [place] [address], [place] [address]- 5959 Aug, [place] [address], [place] [address]- 0[address] Aug, [facility] [address], [place] [address]- 8761 Aug, [place] [address], [place] [address]- 0653 Jul, [place] [address], [place] [address]- 3873 Jul, 37 weeks gestation of Z3A.37 and 36 weeks gestation of Z3A.36 [place] [address], [place] [address]- 3359 Jul, Normal , first Z34.00 ; Oligohydramnios in third trimester, single or unspecified fetus O41.03X0 ; Diet controlled gestational diabetes mellitus (GDM), antepartum O24.410 ; 37 weeks gestation of Z3A.37 and Third trimester Z34.93 [place] [address], [place] [address]- 3696 Jul, Oligohydramnios in third trimester, single or unspecified fetus O41.03X0 [place] [address], [place] [address]- 2326 Jul, [place] [address], [place] [address]- 6455 Jul, 36 weeks gestation of Z3A.36 ; Oligohydramnios in third trimester, single or unspecified fetus O41.03X0 ; Diet controlled gestational diabetes mellitus (GDM), antepartum O24.410 and Third trimester Z34.93 [place] [address] [id number], [place] [address]- 6599 Jul, Oligohydramnios in third trimester, single or unspecified fetus O41.03X0 ; Diet controlled gestational diabetes mellitus (GDM) in third trimester O24.410 and Elderly primigravida in third trimester O09.513 [facility] [address], [place] [address]- 7815 Jul, Normal , first Z34.00 ; 35 weeks gestation of Z3A.35 ; Third trimester Z34.93 ; Diet controlled gestational diabetes mellitus (GDM) in third trimester O24.410 and Advanced maternal age, primigravida in third trimester, antepartum O09.513 [facility] [id number] [place] [address] 03139- 0062 Jul, [facility] [id number] [place] [address] 40570- 5100 Jul, Gestational diabetes mellitus (GDM) in second trimester, gestational diabetes method of control unspecified O24.419 [place] [id number] [place] [address] 46099- 4355 Jul, [place] [id number] [place] [address] 93612- 7988 Jul, 34 weeks gestation of Z3A.34 ; Gestational diabetes mellitus (GDM) in second trimester, gestational diabetes method of control unspecified O24.419 ; Third trimester Z34.93 and Advanced maternal age, primigravida in third trimester, antepartum O09.513 [facility] [address], [place] [address]- 0399 Jun, [facility] [id number] [place] [address] 15728- 8982 Jun, [place] [address] [place] [address] 59146- 5477 Jun, [facility] [id number] [place] [address] 38289- 8512 Jun, Third trimester Z34.93 ; 32 weeks gestation of Z3A.32 and Diet controlled gestational diabetes mellitus (GDM) in third trimester O24.410 [facility] [id number] [place] [address] 10135- 6756 Jun, [place] [address] [place] [address] 80295- 3056 Jun, Normal , first Z34.00 ; Encounter for immunization Z23 ; 30 weeks gestation of Z3A.30 and Diet controlled gestational diabetes mellitus (GDM), antepartum O24.410 [place] [id number] [place] [address] 07831- 9576 Jun, Glucose tolerance test abnormal R73.02 [place] [id number] [place] [address] 93518- 9864 May, Gestational diabetes mellitus (GDM) in second trimester, gestational diabetes method of control unspecified O24.419 [place] [id number] [place] [address] 96623- 5809 May, [place] [id number] [place] [address] 60181- 2504 May, [place] [id number] [place] [address] 90444- 1946 May, Acute pharyngitis, unspecified etiology J02.9 [place] [id number] [place] [address] 65609- 8923 May, Second trimester Z33.1 and 28 weeks gestation of Z3A.28 [place] [id number] [place] [address] 52780- 9123 Apr, [place] [id number] [place] [address] 26467- 6655 Apr, care in second trimester Z34.92 ; Abnormal chromosomal and genetic finding on screening mother O28.5 ; 24 weeks gestation of Z3A.24 and Advanced maternal age, 1st , second trimester O09.512 [place] [address] [place] [address] 13091- 9284 Mar, 20 weeks gestation of Z3A.20 ; Second trimester Z33.1 and Abnormal chromosomal and genetic finding on screening mother O28.5 [place] [address] [place] [address] 20615- 0525 February, Dental examination Z01.20 [place] [id number] [place] [address] 44637- 7065 February, 16 weeks gestation of Z3A.16 and Second trimester Z33.1 [place] [address] 67096- 1805 February, Normal , first Z34.00 ; 12 weeks gestation of Z3A.12 ; Advanced maternal age, primigravida in first trimester, antepartum O09.511 and First trimester Z33.1 [place] [id number] [place] [address] 37787- 5767 Jan, care in first trimester Z34.91 ; Normal , first Z34.00 and 8 weeks gestation of Z3A.08 [place] [id number] [place] [address] 22544- 9375 Dec, Less than 8 weeks gestation of Z3A.01 [place] [id number] [place] [address] 80399- 6159 07 Dec, 2016 Encounter to establish care [...]
--- OUTSIDE RECORDS SUMMARY | 2018-07-01 18:53 | XMS REPORT ---
Author Author LAZ DENSON Organization [facility] Address [address] [place] [address] Care Team Providers Care Documentum Consultant Name Role Phone LAZ DENSON Unavailable PROBLEMS Type Condition ICD9-CM Code [id number] Code Onset Dates Condition Status SNOMED Code Problem Seasonal allergies J30.2 Active 222041960 Problem Reactive airway disease without complication, unspecified asthma severity, unspecified whether persistent J45.909 Active 085816376070 Problem Anxiety F41.9 Active 60929270 Problem Mild episode of recurrent major depressive disorder F33.0 Active 879319375 ALLERGIES No Known Allergies ENCOUNTERS Encounter Location Date Diagnosis [facility] [id number] [place] [address] Mar, Hoarseness R49.0 and Seasonal allergies J30.2 [facility] [address] [address] February, Well woman exam with routine gynecological exam Z01.419 [place] [id number] [place] [address] 37686- 3217 04 Jan, 2018 Reactive airway disease without complication, unspecified asthma severity, unspecified whether persistent J45.909 and Sore throat J02.9 [facility] [id number] [place] [address]9568- 9460 Nov, [place] [address] [address] 13 Sep, 2017 care and examination Z39.2 ; Encounter for Depo- Provera contraception Z30.42 and control counseling Z30.09 [place] [address] [address] Aug, [place] [address] [place] [address] Aug, [place] [address] [place] [address] Aug, [facility] [address] [place] [address] Aug, [place] [address] [place] [address] 44070- 0923 Jul, [place] [address] [place] [address] Jul, 37 weeks gestation of Z3A.37 and 36 weeks gestation of Z3A.36 [place] [address], [place] [address] Jul, Normal , first Z34.00 ; Oligohydramnios in third trimester, single or unspecified fetus O41.03X0 ; Diet controlled gestational diabetes mellitus (GDM), antepartum O24.410 ; 37 weeks gestation of Z3A.37 and Third trimester Z34.93 [place] [address], [place] [address] Jul, Oligohydramnios in third trimester, single or unspecified fetus O41.03X0 [place] [address], [place] [address] Jul, [place] [address] [place] [address] Jul, 36 weeks gestation of Z3A.36 ; Oligohydramnios in third trimester, single or unspecified fetus O41.03X0 ; Diet controlled gestational diabetes mellitus (GDM), antepartum O24.410 and Third trimester Z34.93 [facility] [id number] [address] Jul, Oligohydramnios in third trimester, single or unspecified fetus O41.03X0 ; Diet controlled gestational diabetes mellitus (GDM) in third trimester O24.410 and Elderly primigravida in third trimester O09.513 [facility] [address] [place] [address] 87943- 0230 Jul, Normal , first Z34.00 ; 35 weeks gestation of Z3A.35 ; Third trimester Z34.93 ; Diet controlled gestational diabetes mellitus (GDM) in third trimester O24.410 and Advanced maternal age, primigravida in third trimester, antepartum O09.513 [facility] [id number] [place] [address] 15162- 7891 Jul, [place] [id number] [place] [address] 97315- 6887 Jul, Gestational diabetes mellitus (GDM) in second trimester, gestational diabetes method of control unspecified O24.419 [place] [id number] [place] [address] 68462- 7365 Jul, [place] [id number] [place] [address] 62531- 6156 Jul, 34 weeks gestation of Z3A.34 ; Gestational diabetes mellitus (GDM) in second trimester, gestational diabetes method of control unspecified O24.419 ; Third trimester Z34.93 and Advanced maternal age, primigravida in third trimester, antepartum O09.513 [place] [address], [place] [address] Jun, [place] [id number] [place] [address]26- 1010 Jun, [place] [id number] [place] [address] 23840- 7181 Jun, [place] [id number] [place] [address] 77730- 3785 Jun, Third trimester Z34.93 ; 32 weeks gestation of Z3A.32 and Diet controlled gestational diabetes mellitus (GDM) in third trimester O24.410 [place] [id number] [place] [address] 98544- 8233 Jun, [place] [address] [place] [address] 72983- 2751 Jun, Normal , first Z34.00 ; Encounter for immunization Z23 ; 30 weeks gestation of Z3A.30 and Diet controlled gestational diabetes mellitus (GDM), antepartum O24.410 [place] [id number] [place] [address]22- 8607 Jun, Glucose tolerance test abnormal R73.02 [place] [id number] [place] [address] 02294- 6182 May, Gestational diabetes mellitus (GDM) in second trimester, gestational diabetes method of control unspecified O24.419 [place] [id number] [place] [address] 22770- 9411 May, [place] [id number] [place] [address] 10326- 9549 May, [place] [id number] [place] [address] 86331- 0642 May, Acute pharyngitis, unspecified etiology J02.9 [place] [id number] [place] [address] 77966- 1573 May, Second trimester Z33.1 and 28 weeks gestation of Z3A.28 [place] [id number] [place] [address] 08577- 0821 Apr, [place] [address] [id number] [place] [address] 87894- 2504 Apr, care in second trimester Z34.92 ; Abnormal chromosomal and genetic finding on screening mother O28.5 ; 24 weeks gestation of Z3A.24 and Advanced maternal age, 1st , second trimester O09.512 [place] [address] [place] [address] 77701- 3378 Mar, 20 weeks gestation of Z3A.20 ; Second trimester Z33.1 and Abnormal chromosomal and genetic finding on screening mother O28.5 [place] [address] [place] [address] 41606- 0553 February, Dental examination Z01.20 [place] [id number] [place] [address] 93908- 9105 February, 16 weeks gestation of Z3A.16 and Second trimester Z33.1 [place] [address] [address]- 9459 February, Normal , first Z34.00 ; 12 weeks gestation of Z3A.12 ; Advanced maternal age, primigravida in first trimester, antepartum O09.511 and First trimester Z33.1 [place] [address] [address]- [address]70 Jan, care in first trimester Z34.91 ; Normal , first Z34.00 and 8 weeks gestation of Z3A.08 [place] [id number] [place] [address] 72960- 0049 Dec, Less than 8 weeks gestation of Z3A.01 [place] [address] [address]- 0596 07 Dec, 2016 Encounter to establish care Z76.89 ; Anxiety F41.9 ; Mild episode of recurrent major depressive disorder F33.0 ; History of colitis Z87.19 ; Missed period N92.6 and Less than 8 weeks gestation of Z3A.01 IMMUNIZATIONS No Known Immunizations SOCIAL HISTORY Never Assessed REASON FOR VISIT 2 week ob fu---DBartemttCARLOS PLAN OF CARE Activity Details Follow Up 2 Weeks Reason: VITAL SIGNS Height 62.5 in 2017-07-19 Weight 210 lbs 2017-07-19 Temperature 98.3 degrees Fahrenheit 2017-07-19 Heart Rate 90 bpm 2017-07-19 Respiratory Rate 20 2017-07-19 BMI 37.797 kg/m2 2017-07-19 Blood pressure systolic 118 mmHg 2017-07-19 Blood pressure diastolic 88 mmHg 2017-07-19 MEDICATIONS Medication Instructions Dosage Frequency Start Date End Date Duration Status Blood Glucose Monitor System w/Device as directed May, Active Clonazepam 0.5 MG Orally Twice a day 1 tablet 12h Not-Taking - Orally Once a day 1 tablet 24h Active Blood Glucose Test - as directed May, Active RESULTS No Results PROCEDURES No Known [...]
--- OUTSIDE RECORDS SUMMARY | 2018-07-01 18:53 | XMS REPORT ---
Author Author LAZ DENSON Organization [facility] Address [address] [place] [address] Care Team Providers Care Fish Processing Supervisor Name Role Phone LAZ DENSON Unavailable PROBLEMS Type Condition ICD9-CM Code [id number] Code Onset Dates Condition Status SNOMED Code Problem Seasonal allergies J30.2 Active 250994882 Problem Reactive airway disease without complication, unspecified asthma severity, unspecified whether persistent J45.909 Active 889215705420 Problem Anxiety F41.9 Active 93664855 Problem Mild episode of recurrent major depressive disorder F33.0 Active 881957003 ALLERGIES No Known Allergies ENCOUNTERS Encounter Location Date Diagnosis [facility] [id number] [place] [address]76 -7890 Mar, Hoarseness R49.0 and Seasonal allergies J30.2 [facility] [address] [address]- [address] February, Well woman exam with routine gynecological exam Z01.419 [place] [id number] [place] [address] 13452- 4410 04 Jan, 2018 Reactive airway disease without complication, unspecified asthma severity, unspecified whether persistent J45.909 and Sore throat J02.9 [facility] [id number] [place] [address] 70901- 9372 Nov, [place] [address] 29507- 1456 13 Sep, 2017 care and examination Z39.2 ; Encounter for Depo- Provera contraception Z30.42 and control counseling Z30.09 [place] [address] [address]- 8153 Aug, [place] [address], [place] [address]- 0406 Aug, [place] [address], [place] [address]- 5941 Aug, [facility] [address], [place] [address]- 3724 Aug, [place] [address] [place] [address] 36229- 3713 Jul, [place] [address], [place] [address]- 5836 Jul, 37 weeks gestation of Z3A.37 and 36 weeks gestation of Z3A.36 [place] [address], [place] [address]- 2888 Jul, Normal , first Z34.00 ; Oligohydramnios in third trimester, single or unspecified fetus O41.03X0 ; Diet controlled gestational diabetes mellitus (GDM), antepartum O24.410 ; 37 weeks gestation of Z3A.37 and Third trimester Z34.93 [place] [address], [place] [address]- 5701 Jul, Oligohydramnios in third trimester, single or unspecified fetus O41.03X0 [place] [address], [place] [address]- 0[address] Jul, [place] [address], [place] [address]- 4525 Jul, 36 weeks gestation of Z3A.36 ; Oligohydramnios in third trimester, single or unspecified fetus O41.03X0 ; Diet controlled gestational diabetes mellitus (GDM), antepartum O24.410 and Third trimester Z34.93 [facility] [address] [address]- 0998 Jul, Oligohydramnios in third trimester, single or unspecified fetus O41.03X0 ; Diet controlled gestational diabetes mellitus (GDM) in third trimester O24.410 and Elderly primigravida in third trimester O09.513 [facility] [address] [place] [address] 28099- 7481 Jul, Normal , first Z34.00 ; 35 weeks gestation of Z3A.35 ; Third trimester Z34.93 ; Diet controlled gestational diabetes mellitus (GDM) in third trimester O24.410 and Advanced maternal age, primigravida in third trimester, antepartum O09.513 [facility] [id number] [place] [address] 10621- 9019 Jul, [place] [id number] [place] [address] 36036- 3305 Jul, Gestational diabetes mellitus (GDM) in second trimester, gestational diabetes method of control unspecified O24.419 [place] [id number] [place] [address] 37572- 5805 Jul, [place] [id number] [place] [address] 74968- 0568 Jul, 34 weeks gestation of Z3A.34 ; Gestational diabetes mellitus (GDM) in second trimester, gestational diabetes method of control unspecified O24.419 ; Third trimester Z34.93 and Advanced maternal age, primigravida in third trimester, antepartum O09.513 [place] [address], [place] [address]- [address] Jun, [place] [id number] [place] [address] 26579- 4744 Jun, [place] [id number] [place] [address] 61924- 8783 Jun, [place] [id number] [place] [address] 92626- 2066 Jun, Third trimester Z34.93 ; 32 weeks gestation of Z3A.32 and Diet controlled gestational diabetes mellitus (GDM) in third trimester O24.410 [place] [id number] [place] [address] 07018- 1121 Jun, [place] [address] [place] [address] 23355- 3575 Jun, Normal , first Z34.00 ; Encounter for immunization Z23 ; 30 weeks gestation of Z3A.30 and Diet controlled gestational diabetes mellitus (GDM), antepartum O24.410 [id number] [place] [address] 16307- 3649 Jun, Glucose tolerance test abnormal R73.02 [place] [id number] [place] [address] 45230- 9679 May, Gestational diabetes mellitus (GDM) in second trimester, gestational diabetes method of control unspecified O24.419 [place] [id number] [place] [address] 09430- 8020 May, [place] [id number] [place] [address] 99159- 6213 May, [place] [id number] [place] [address] 53839- 9713 May, Acute pharyngitis, unspecified etiology J02.9 [place] [id number] [place] [address] 25230- 5656 May, Second trimester Z33.1 and 28 weeks gestation of Z3A.28 [place] [id number] [place] [address] 37382- 7035 Apr, [place] [id number] [place] [address] 05217- 2479 Apr, care in second trimester Z34.92 ; Abnormal chromosomal and genetic finding on screening mother O28.5 ; 24 weeks gestation of Z3A.24 and Advanced maternal age, 1st , second trimester O09.512 [place] [address] [place] [address] 28761- 5514 Mar, 20 weeks gestation of Z3A.20 ; Second trimester Z33.1 and Abnormal chromosomal and genetic finding on screening mother O28.5 [place] [address] [place] [address] 45316- 7721 February, Dental examination Z01.20 [place] [id number] [place] [address] 07275- 7939 February, 16 weeks gestation of Z3A.16 and Second trimester Z33.1 [place] [address] 538[address]- 5979 February, Normal , first Z34.00 ; 12 weeks gestation of Z3A.12 ; Advanced maternal age, primigravida in first trimester, antepartum O09.511 and First trimester Z33.1 [place] [address] [address]- 8405 Jan, care in first trimester Z34.91 ; Normal , first Z34.00 and 8 weeks gestation of Z3A.08 [place] [id number] [place] [address] 07603- 2034 Dec, Less than 8 weeks gestation of Z3A.01 [place] [address] 37049- 3824 07 Dec, 2016 Encounter to establish care Z76.89 ; Anxiety F41.9 ; Mild episode of recurrent major depressive disorder F33.0 ; History of colitis Z87.19 ; Missed period N92.6 and Less than 8 weeks gestation of Z3A.01 IMMUNIZATIONS No Known Immunizations SOCIAL HISTORY Never Assessed REASON FOR VISIT Annual physical (female)-brigitte VELÁSQUEZ PLAN OF CARE Activity Details Follow Up 1 Year with Rosa Maria well woman Reason: VITAL SIGNS Height 62.5 in 2018-03-13 Weight 184.5 lbs 2018-03-13 Temperature 98.5 degrees Fahrenheit 2018-03-13 Heart Rate 86 bpm 2018-03-13 Respiratory Rate 20 2018-03-13 BMI 33.20 kg/m2 2018-03-13 Blood pressure systolic 132 mmHg 2018-03-13 Blood pressure diastolic 80 mmHg 2018-03-13 MEDICATIONS Medication Instructions Dosage Frequency Start Date End Date Duration Status Ortho Tri-Cyclen Lo 0.18/0.215/0.25 MG-25 MCG Orally Once a day 1 tablet 24h 20 Nov, 2017 28 day(s) Active RESULTS No Results PROCEDURES Procedure Date Ordered Result Body Site LAB NOT BILLED BY [facility] March 13, 2018 No Charge March 13, 2018 Bacterial Vaginosis In House March 13, 2018 INSTRUCTIONS MEDICATIONS ADMINISTERED No Known Medications MEDICAL [...]
--- OUTSIDE RECORDS SUMMARY | 2018-07-01 18:53 | XMS REPORT ---
Author Author LAZ DENSON Organization [facility] Address [address] [place] [address] Care Team Providers Care C Application Developer Name Role Phone LAZ DENSON Unavailable PROBLEMS Type Condition ICD9-CM Code HTB74-HE Code Onset Dates Condition Status SNOMED Code Problem Seasonal allergies J30.2 Active 818255500 Problem Reactive airway disease without complication, unspecified asthma severity, unspecified whether persistent J45.909 Active 047382827941 Problem Anxiety F41.9 Active 83018504 Problem Mild episode of recurrent major depressive disorder F33.0 Active 665730940 ALLERGIES No Known Allergies ENCOUNTERS Encounter Location Date Diagnosis [facility] [id number] [place] [address] Mar, Hoarseness R49.0 and Seasonal allergies J30.2 [facility] [address] [address] February, Well woman exam with routine gynecological exam Z01.419 [place] [id number] [place] [address] 35995[address] 84[address] 04 Jan, 2018 Reactive airway disease without complication, unspecified asthma severity, unspecified whether persistent J45.909 and Sore throat J02.9 [facility] [id number] [place] [address] 90110- 5943 19 Nov, 2017 [place] [address] [address] 13 Sep, 2017 care and examination Z39.2 ; Encounter for Depo- Provera contraception Z30.42 and control counseling Z30.09 [place] [address] [address] Aug, [place] [address] [place] [address] Aug, [place] [address] [place] [address] Aug, [facility] [address] [address] Aug, [place] [address] [place] [address] 47328- 1510 Jul, [place] [address], [place] [address] Jul, 37 weeks gestation of Z3A.37 and 36 weeks gestation of Z3A.36 [place] [address], [place] [address] Jul, Normal , first Z34.00 ; Oligohydramnios in third trimester, single or unspecified fetus O41.03X0 ; Diet controlled gestational diabetes mellitus (GDM), antepartum O24.410 ; 37 weeks gestation of Z3A.37 and Third trimester Z34.93 [place] [address], [place] [address] Jul, Oligohydramnios in third trimester, single or unspecified fetus O41.03X0 [place] [address], [place] [address] Jul, [place] [address] [place] [address] Jul, 36 weeks gestation of Z3A.36 ; Oligohydramnios in third trimester, single or unspecified fetus O41.03X0 ; Diet controlled gestational diabetes mellitus (GDM), antepartum O24.410 and Third trimester Z34.93 [facility] [id number], [place] [address] Jul, Oligohydramnios in third trimester, single or unspecified fetus O41.03X0 ; Diet controlled gestational diabetes mellitus (GDM) in third trimester O24.410 and Elderly primigravida in third trimester O09.513 [facility] [address] [place] [address] 95971- [address] Jul, Normal , first Z34.00 ; 35 weeks gestation of Z3A.35 ; Third trimester Z34.93 ; Diet controlled gestational diabetes mellitus (GDM) in third trimester O24.410 and Advanced maternal age, primigravida in third trimester, antepartum O09.513 [facility] [id number] [place] [address] 64946- 7601 Jul, [place] [id number] [place] [address] 81200- 0852 Jul, Gestational diabetes mellitus (GDM) in second trimester, gestational diabetes method of control unspecified O24.419 [place] [id number] [place] [address] 89132- 4058 Jul, [place] [id number] [place] [address] 96875- 0524 Jul, 34 weeks gestation of Z3A.34 ; Gestational diabetes mellitus (GDM) in second trimester, gestational diabetes method of control unspecified O24.419 ; Third trimester Z34.93 and Advanced maternal age, primigravida in third trimester, antepartum O09.513 [place] [address], [place] [address] Jun, [place] [id number] [place] [address] 70832- 4562 Jun, [place] [id number] [place] [address] 72671- 3937 Jun, [place] [id number] [place] [address] 89687- 7638 Jun, Third trimester Z34.93 ; 32 weeks gestation of Z3A.32 and Diet controlled gestational diabetes mellitus (GDM) in third trimester O24.410 [place] [id number] [place] [address]4023- 4652 Jun, [place] [address] [place] [address] 35087- 1374 Jun, Normal , first Z34.00 ; Encounter for immunization Z23 ; 30 weeks gestation of Z3A.30 and Diet controlled gestational diabetes mellitus (GDM), antepartum O24.410 [id number] [place] [address] 85556- 8511 Jun, Glucose tolerance test abnormal R73.02 [place] [id number] [place] [address] 75138- 9277 May, Gestational diabetes mellitus (GDM) in second trimester, gestational diabetes method of control unspecified O24.419 [place] [id number] [place] [address] 84500- 1003 May, [place] [id number] [place] [address] 14923- 1581 May, [place] [id number] [place] [address] 21326- 3407 May, Acute pharyngitis, unspecified etiology J02.9 [address] [id number] [place] [address] 80044- 2738 May, Second trimester Z33.1 and 28 weeks gestation of Z3A.28 [place] [id number] [place] [address] 97770- [address] Apr, [place] [id number] [place] [address] 23428- 5113 Apr, care in second trimester Z34.92 ; Abnormal chromosomal and genetic finding on screening mother O28.5 ; 24 weeks gestation of Z3A.24 and Advanced maternal age, 1st , second trimester O09.512 [place] [address] [place] [address] 51308- 5254 Mar, 20 weeks gestation of Z3A.20 ; Second trimester Z33.1 and Abnormal chromosomal and genetic finding on screening mother O28.5 [place] [address] [place] [address] 95785- 9097 February, Dental examination Z01.20 [place] [id number] [place] [address] 03815- 4516 February, 16 weeks gestation of Z3A.16 and Second trimester Z33.1 [place] [address] [address] February, Normal , first Z34.00 ; 12 weeks gestation of Z3A.12 ; Advanced maternal age, primigravida in first trimester, antepartum O09.511 and First trimester Z33.1 [place] [address] [address]- 42[address] Jan, care in first trimester Z34.91 ; Normal , first Z34.00 and 8 weeks gestation of Z3A.08 [place] [id number] [place] [address] 20892- 1283 Dec, Less than 8 weeks gestation of Z3A.01 [place] [id number] [place] [address] 21586- 6261 07 Dec, 2016 Encounter to establish care Z76.89 ; Anxiety F41.9 ; Mild episode of recurrent major depressive disorder F33.0 ; History of colitis Z87.19 ; Missed period N92.6 and Less than 8 weeks gestation of Z3A.01 IMMUNIZATIONS No Known Immunizations SOCIAL HISTORY Never Assessed REASON FOR VISIT Congestion, running nose , sore throat , heavyness on chest x few days -- amanda gilbert PLAN OF CARE Activity Details Follow Up prn, PCP [facility] Reason: VITAL SIGNS Height 62.5 in 2018-01-30 Weight 188.0 lbs 2018-01-30 Temperature 98.7 degrees Fahrenheit 2018-01-30 Heart Rate 80 bpm 2018-01-30 Respiratory Rate 20 2018-01-30 BMI 33.83 kg/m2 2018-01-30 Blood pressure systolic 120 mmHg 2018-01-30 Blood pressure diastolic 68 mmHg 2018-01-30 MEDICATIONS Medication Instructions Dosage Frequency Start Date End Date Duration Status PredniSONE 50 mg Orally Once a day 1 tablet 24h Jan, Jan, 05 days Active ProAir HFA 108 (90 Base) MCG/ACT Inhalation every 6 hrs 2 puffs as needed 6h Jan, 30 days Active Ortho Tri-Cyclen Lo 0.18/0.215/0.25 MG-25 MCG Orally Once a day 1 tablet 24h Nov, 28 day(s) Active RESULTS Name Result Date Reference Range STREP A (IN HOUSE) 2018-01-30 STREP A neg Control + Lot # [id number] Exp date 06/2018 PROCEDURES Procedure Date Ordered Result Body Site STREP A ASSAY W/OPTIC January 30, 2018 INSTRUCTIONS MEDICATIONS ADMINISTERED No Known Medications [...]
--- OUTSIDE RECORDS SUMMARY | 2018-07-01 18:53 | XMS REPORT ---
Author Author LAZ DENSON Organization [facility] Address [address] [place] [address] Care Team Providers Care Incinerator Operator Name Role Phone LAZ DENSON Unavailable PROBLEMS Type Condition ICD9-CM Code JVF50-NK Code Onset Dates Condition Status SNOMED Code Problem Seasonal allergies J30.2 Active 677000847 Problem Reactive airway disease without complication, unspecified asthma severity, unspecified whether persistent J45.909 Active 946460364577 Problem Anxiety F41.9 Active 08343375 Problem Mild episode of recurrent major depressive disorder F33.0 Active 228286936 ALLERGIES No Known Allergies ENCOUNTERS Encounter Location Date Diagnosis [facility] [id number] [place] [address] Mar, Hoarseness R49.0 and Seasonal allergies J30.2 [facility] [address] [address]- [address] February, Well woman exam with routine gynecological exam Z01.419 [place] [id number] [place] [address] 14588- 5592 04 Jan, 2018 Reactive airway disease without complication, unspecified asthma severity, unspecified whether persistent J45.909 and Sore throat J02.9 [facility] [id number] [place] [address] 40195- 1367 Nov, [place] [address] 60440- 64[address] 13 Sep, 2017 care and examination Z39.2 ; Encounter for Depo- Provera contraception Z30.42 and control counseling Z30.09 [place] [address] 31777- 5148 Aug, [place] [address], [place] [address]- 9362 Aug, [place] [address], [place] [address]- 5[address] Aug, [facility] [address], [place] [address]- 2654 Aug, [place] [address] [place] [address] 25919- 7846 Jul, [place] [address], [place] [address]- [address] Jul, 37 weeks gestation of Z3A.37 and 36 weeks gestation of Z3A.36 [place] [address], [place] [address]- 20[address] Jul, Normal , first Z34.00 ; Oligohydramnios in third trimester, single or unspecified fetus O41.03X0 ; Diet controlled gestational diabetes mellitus (GDM), antepartum O24.410 ; 37 weeks gestation of Z3A.37 and Third trimester Z34.93 [place] [address], [place] [address]- [address] Jul, Oligohydramnios in third trimester, single or unspecified fetus O41.03X0 [place] [address], [place] [address]- 4139 Jul, [place] [address], [place] [address]- 67[address] Jul, 36 weeks gestation of Z3A.36 ; Oligohydramnios in third trimester, single or unspecified fetus O41.03X0 ; Diet controlled gestational diabetes mellitus (GDM), antepartum O24.410 and Third trimester Z34.93 [facility] [id number], [place] [address]- [address] Jul, Oligohydramnios in third trimester, single or unspecified fetus O41.03X0 ; Diet controlled gestational diabetes mellitus (GDM) in third trimester O24.410 and Elderly primigravida in third trimester O09.513 [facility] [address] [place] [address] 48186- 0909 Jul, Normal , first Z34.00 ; 35 weeks gestation of Z3A.35 ; Third trimester Z34.93 ; Diet controlled gestational diabetes mellitus (GDM) in third trimester O24.410 and Advanced maternal age, primigravida in third trimester, antepartum O09.513 [facility] [id number] [place] [address] 86706- 3872 Jul, [place] [id number] [place] [address] 40913- 7332 Jul, Gestational diabetes mellitus (GDM) in second trimester, gestational diabetes method of control unspecified O24.419 [place] [id number] [place] [address] 37732- 5801 Jul, [place] [id number] [place] [address] 19404- 1478 Jul, 34 weeks gestation of Z3A.34 ; Gestational diabetes mellitus (GDM) in second trimester, gestational diabetes method of control unspecified O24.419 ; Third trimester Z34.93 and Advanced maternal age, primigravida in third trimester, antepartum O09.513 [place] [address], [place] [address]- 5041 Jun, [place] [address] [place] [address] 55572- 3777 Jun, [place] [id number] [place] [address] 10104- 5035 Jun, [place] [address] [place] [address] 69156- 5271 Jun, Third trimester Z34.93 ; 32 weeks gestation of Z3A.32 and Diet controlled gestational diabetes mellitus (GDM) in third trimester O24.410 [place] [address] [place] [address] 15163- 0229 Jun, [place] [address] [place] [address] 26181- 2740 Jun, Normal , first Z34.00 ; Encounter for immunization Z23 ; 30 weeks gestation of Z3A.30 and Diet controlled gestational diabetes mellitus (GDM), antepartum O24.410 [place] [address] [place] [address] 93741- 0088 Jun, Glucose tolerance test abnormal R73.02 [place] [id number] [place] [address] 28174- 5465 May, Gestational diabetes mellitus (GDM) in second trimester, gestational diabetes method of control unspecified O24.419 [place] [id number] [place] [address] 45186- 3419 May, [place] [id number] [place] [address] 01812- 6539 May, [place] [id number] [place] [address] 59304- 0127 May, Acute pharyngitis, unspecified etiology J02.9 [place] [id number] [place] [address] 27596- 4529 May, Second trimester Z33.1 and 28 weeks gestation of Z3A.28 [place] [address] [place] [address] 05613- 3435 Apr, [place] [address] [place] [address] 51963- 2758 Apr, care in second trimester Z34.92 ; Abnormal chromosomal and genetic finding on screening mother O28.5 ; 24 weeks gestation of Z3A.24 and Advanced maternal age, 1st , second trimester O09.512 [place] [address] [place] [address] 34349- 0662 Mar, 20 weeks gestation of Z3A.20 ; Second trimester Z33.1 and Abnormal chromosomal and genetic finding on screening mother O28.5 [place] [address] [place] [address] 11889- 3547 February, Dental examination Z01.20 [place] [id number] [place] [address] 22825- 9049 February, 16 weeks gestation of Z3A.16 and Second trimester Z33.1 [place] [address] 32620- [address]75 February, Normal , first Z34.00 ; 12 weeks gestation of Z3A.12 ; Advanced maternal age, primigravida in first trimester, antepartum O09.511 and First trimester Z33.1 [place] [address] [address]01- 6338 Jan, care in first trimester Z34.91 ; Normal , first Z34.00 and 8 weeks gestation of Z3A.08 [place] [id number] [place] [address] 17291- 7755 Dec, Less than 8 weeks gestation of Z3A.01 [place] [address] 43017- 0662 07 Dec, 2016 Encounter to establish care Z76.89 ; Anxiety F41.9 ; Mild episode of recurrent major depressive disorder F33.0 ; History of colitis Z87.19 ; Missed period N92.6 and Less than 8 weeks gestation of Z3A.01 IMMUNIZATIONS Vaccine Route Administration Date Status DEPO PROVERA (150 MG/ML) IM Intramuscular Oct 10, 2017 Administered SOCIAL HISTORY Never Assessed REASON FOR VISIT OB- -- amanda gilbert PLAN OF CARE Activity Details Follow Up 1 Year with [facility] for well woman Reason: VITAL SIGNS Height 62.5 in 2017-10-10 Weight 193.0 lbs 2017-10-10 Temperature 98.0 degrees Fahrenheit 2017-10-10 Heart Rate 78 bpm 2017-10-10 Respiratory Rate 20 2017-10-10 BMI 34.73 kg/m2 2017-10-10 Blood pressure systolic 126 mmHg 2017-10-10 Blood pressure diastolic 70 mmHg 2017-10-10 MEDICATIONS Medication Instructions Dosage Frequency Start Date End Date Duration Status - Orally Once a day 1 tablet 24h Active Clonazepam 0.5 MG Orally Twice a day 1 tablet 12h Not-Taking Blood Glucose Monitor System w/Device as directed May, Active Blood Glucose Test - ONE TOUCH TEST STRIPS 4 times a day as directed 6h May, Active RESULTS Name Result Date Reference Range TEST, URINE (IN HOUSE) 2017-10-10 RESULTS negative Lot # [id number] Control + Exp date 12/2018 PROCEDURES Procedure Date Ordered Result Body Site URINE TEST Oct 10, 2017 DEPO PROVERA (150 MG/ML) Oct 10, 2017 THER/PROPH/DIAG INJ, SC/IM Oct 10, 2017 INSTRUCTIONS MEDICATIONS ADMINISTERED No Known Medications MEDICAL [...]
--- OUTSIDE RECORDS SUMMARY | 2018-07-01 18:54 | XMS REPORT ---
Author Author LAZ DENSON Organization [facility], [place] Address [address] [place] [address] Care Team Providers Care Dry Finisher Name Role Phone LAZ DENSON Unavailable PROBLEMS Type Condition ICD9-CM Code GNT70-LM Code Onset Dates Condition Status SNOMED Code Problem Reactive airway disease without complication, unspecified asthma severity, unspecified whether persistent J45.909 Active 671870430692 Problem Anxiety F41.9 Active 32706888 Problem Mild episode of recurrent major depressive disorder F33.0 Active 826285185 ALLERGIES No Information ENCOUNTERS Encounter Location Date Diagnosis [place] [id number] [place] [id number] [place] [address] 25415- 5190 February, [place] [address] 35155- 7866 Jan, Reactive airway disease without complication, unspecified asthma severity, unspecified whether persistent J45.909 and Sore throat J02.9 [place] [id number] [place] [address] 14881- 3311 Nov, [place] [id number] [place] [address] 33645- 0870 Sep, care and examination Z39.2 ; Encounter for Depo- Provera contraception Z30.42 and control counseling Z30.09 [place] [id number] [place] [address] 71066- 9669 Aug, [place] [address] 06056- 4251 14 Aug, 2017 [place] [id number] [place] [address] 86322- 3862 Aug, [place] [address] [place] [address]- 3650 Aug, [place] [id number] [place] [address] 40735- 6997 Jul, [place] [id number] [place] [address] 04983- 7086 Jul, 37 weeks gestation of Z3A.37 and 36 weeks gestation of Z3A.36 [place] [id number] [place] [address] 66495- 8080 Jul, Normal , first Z34.00 ; Oligohydramnios in third trimester, single or unspecified fetus O41.03X0 ; Diet controlled gestational diabetes mellitus (GDM), antepartum O24.410 ; 37 weeks gestation of Z3A.37 and Third trimester Z34.93 [place] [address] [place] [address] 49505- 2981 Jul, Oligohydramnios in third trimester, single or unspecified fetus O41.03X0 [place] [address], [place] [address]- 5849 Jul, [place] [id number] [place] [address] 89486- 3535 Jul, 36 weeks gestation of Z3A.36 ; Oligohydramnios in third trimester, single or unspecified fetus O41.03X0 ; Diet controlled gestational diabetes mellitus (GDM), antepartum O24.410 and Third trimester Z34.93 [place] [address] [address] [address]- 2647 Jul, Diet controlled gestational diabetes mellitus (GDM) in third trimester O24.410 ; Oligohydramnios in third trimester, single or unspecified fetus O41.03X0 and Elderly primigravida in third trimester O09.513 [place] [address] [address] [address], [place] [address]- 9353 Jul, Normal , first Z34.00 ; 35 weeks gestation of Z3A.35 ; Third trimester Z34.93 ; Diet controlled gestational diabetes mellitus (GDM) in third trimester O24.410 and Advanced maternal age, primigravida in third trimester, antepartum O09.513 [facility], [place] [id number], [place] [address]- 7366 Jul, [facility] [place] [id number], [place] [address]- 1836 Jul, Gestational diabetes mellitus (GDM) in second trimester, gestational diabetes method of control unspecified O24.419 [facility], [place] [id number], [place] [address]- 3386 Jul, [facility] [place] [address] [place] [address] 91609- 3686 Jul, 34 weeks gestation of Z3A.34 ; Gestational diabetes mellitus (GDM) in second trimester, gestational diabetes method of control unspecified O24.419 ; Third trimester Z34.93 and Advanced maternal age, primigravida in third trimester, antepartum O09.513 [facility] [place] [id number], [place] [address]- 8160 Jun, [facility] [place] [address], [place] [address]- 4904 Jun, [facility] [place] [address], [place] [address]- 6413 Jun, [facility] [place] [address], [place] [address]- 4846 Jun, Third trimester Z34.93 ; 32 weeks gestation of Z3A.32 and Diet controlled gestational diabetes mellitus (GDM) in third trimester O24.410 [facility] [place] [id number], [place] [address]- 3346 Jun, [facility] [place] [address], [place] [address]- 1276 Jun, Normal , first Z34.00 ; Encounter for immunization Z23 ; 30 weeks gestation of Z3A.30 and Diet controlled gestational diabetes mellitus (GDM), antepartum O24.410 [place] [address], [place] [address]- 3452 Jun, Glucose tolerance test abnormal R73.02 [place] [id number] [place] [address] 21651- 8424 May, Gestational diabetes mellitus (GDM) in second trimester, gestational diabetes method of control unspecified O24.419 [place] [id number] [place] [address] 90834- 7437 May, [place] [id number] [place] [address] 32299- 4864 May, [place] [id number] [place] [address] 86407- 4330 May, Acute pharyngitis, unspecified etiology J02.9 [place] [id number] [place] [address] 96953- 0107 May, Second trimester Z33.1 and 28 weeks gestation of Z3A.28 [place] [id number] [place] [address] 20152- 0841 Apr, [place] [id number] [place] [address] 40137- 3605 Apr, care in second trimester Z34.92 ; Abnormal chromosomal and genetic finding on screening mother O28.5 ; 24 weeks gestation of Z3A.24 and Advanced maternal age, 1st , second trimester O09.512 [place] [address], [place] [address]- 2442 Mar, 20 weeks gestation of Z3A.20 ; Second trimester Z33.1 and Abnormal chromosomal and genetic finding on screening mother O28.5 [place] [id number] [place] [address] 32906- 5693 February, Dental examination Z01.20 [place] [id number] [place] [address] 11898- 9212 February, 16 weeks gestation of Z3A.16 and Second trimester Z33.1 [place] [address] [place] [address] 81460040- 1381 February, Normal , first Z34.00 ; 12 weeks gestation of Z3A.12 ; Advanced maternal age, primigravida in first trimester, antepartum O09.511 and First trimester Z33.1 [place] [address] [place] [address] 33684791- 9446 Jan, care in first trimester Z34.91 ; Normal , first Z34.00 and 8 weeks gestation of Z3A.08 [place] [id number] [place] [address] 65588502- 9951 Dec, Less than 8 weeks gestation of Z3A.01 [place] [address] [place] [address] 70088- 2295 Dec, Encounter to establish care Z76.89 ; Anxiety F41.9 ; Mild episode of recurrent major depressive disorder F33.0 ; History of colitis Z87.19 ; Missed period N92.6 and Less than 8 weeks gestation of Z3A.01 IMMUNIZATIONS No Known Immunizations SOCIAL HISTORY Never Assessed REASON FOR VISIT glucometer and testing supplies PLAN OF CARE VITAL SIGNS MEDICATIONS Medication Instructions Dosage Frequency Start Date End Date Duration Status Blood Glucose Monitor System w/Device as directed May, Active Blood Glucose Test - as directed [...]
--- OUTSIDE RECORDS SUMMARY | 2018-07-01 18:54 | XMS REPORT ---
Author Author LAZ DENSON Organization [facility] Address [address] [place] [address] Care Team Providers Care Oil Heat Technician Name Role Phone LAZ DENSON Unavailable PROBLEMS Type Condition ICD9-CM Code TAD91-BN Code Onset Dates Condition Status SNOMED Code Problem Reactive airway disease without complication, unspecified asthma severity, unspecified whether persistent J45.909 Active 191745436011 Problem Anxiety F41.9 Active 70335354 Problem Mild episode of recurrent major depressive disorder F33.0 Active 418134830 ALLERGIES No Information ENCOUNTERS Encounter Location Date Diagnosis [place] [address] [place] [id number] [place] [address] 25137- 1766 February, [place] [address] 23485- 5096 04 Jan, 2018 Reactive airway disease without complication, unspecified asthma severity, unspecified whether persistent J45.909 and Sore throat J02.9 [place] [address] [id number] [place] [address] 80496- 7319 Nov, [place] [id number] [place] [address] 83448- 9633 13 Sep, 2017 care and examination Z39.2 ; Encounter for Depo- Provera contraception Z30.42 and control counseling Z30.09 [place] [address] [id number] [place] [address] 54968- 1310 Aug, [place] [address] 73469- 6513 14 Aug, 2017 [place] [id number] [place] [address] 13811- 5150 Aug, [place] [address] [place] [address]- 6589 Aug, [place] [id number] [place] [address] 71872- 1496 Jul, [place] [address] [place] [address] 49835- 6325 Jul, 37 weeks gestation of Z3A.37 and 36 weeks gestation of Z3A.36 [place] [address] [place] [address] 28820- 4701 Jul, Normal , first Z34.00 ; Oligohydramnios in third trimester, single or unspecified fetus O41.03X0 ; Diet controlled gestational diabetes mellitus (GDM), antepartum O24.410 ; 37 weeks gestation of Z3A.37 and Third trimester Z34.93 [place] [address] [place] [address] 34041- 3728 Jul, Oligohydramnios in third trimester, single or unspecified fetus O41.03X0 [place] [address], [place] [address]- 5427 Jul, [place] [id number] [place] [address] 97791- 7177 Jul, 36 weeks gestation of Z3A.36 ; Oligohydramnios in third trimester, single or unspecified fetus O41.03X0 ; Diet controlled gestational diabetes mellitus (GDM), antepartum O24.410 and Third trimester Z34.93 [place] [address] [address], [place] [address]- 2996 Jul, Oligohydramnios in third trimester, single or unspecified fetus O41.03X0 ; Diet controlled gestational diabetes mellitus (GDM) in third trimester O24.410 and Elderly primigravida in third trimester O09.513 [place] [address] [id number] [place] [address] 70436- 0845 Jul, Normal , first Z34.00 ; 35 weeks gestation of Z3A.35 ; Third trimester Z34.93 ; Diet controlled gestational diabetes mellitus (GDM) in third trimester O24.410 and Advanced maternal age, primigravida in third trimester, antepartum O09.513 [facility] [id number], [place] [address]- 3696 Jul, [facility] [id number], [place] [address]- 0736 Jul, Gestational diabetes mellitus (GDM) in second trimester, gestational diabetes method of control unspecified O24.419 [facility] [id number], [place] [address]- 3386 Jul, [facility] [address] [place] [address] 19436- 9510 Jul, 34 weeks gestation of Z3A.34 ; Gestational diabetes mellitus (GDM) in second trimester, gestational diabetes method of control unspecified O24.419 ; Third trimester Z34.93 and Advanced maternal age, primigravida in third trimester, antepartum O09.513 [facility] [id number], [place] [address]- 7096 Jun, [facility] [address], [place] [address]- 6169 Jun, [facility] [address], [place] [address]- 9340 Jun, [facility] [address], [place] [address]- 9206 Jun, Third trimester Z34.93 ; 32 weeks gestation of Z3A.32 and Diet controlled gestational diabetes mellitus (GDM) in third trimester O24.410 [facility] [id number], [place] [address]- 0776 Jun, [facility] [address], [place] [address]- 1022 Jun, Normal , first Z34.00 ; Encounter for immunization Z23 ; 30 weeks gestation of Z3A.30 and Diet controlled gestational diabetes mellitus (GDM), antepartum O24.410 [place] [address], [place] [address]- 6313 Jun, Glucose tolerance test abnormal R73.02 [place] [id number] [place] [address] 37721- 0986 May, Gestational diabetes mellitus (GDM) in second trimester, gestational diabetes method of control unspecified O24.419 [place] [id number] [place] [address] 07089- 5106 May, [place] [id number] [place] [address] 25238- 2106 May, [place] [address] [place] [address] 98065- 3298 May, Acute pharyngitis, unspecified etiology J02.9 [place] [address] [place] [address] 28678- 3631 May, Second trimester Z33.1 and 28 weeks gestation of Z3A.28 [place] [address] [place] [address] 53138- 0146 Apr, [place] [address] [place] [address] 05335- 6109 Apr, care in second trimester Z34.92 ; Abnormal chromosomal and genetic finding on screening mother O28.5 ; 24 weeks gestation of Z3A.24 and Advanced maternal age, 1st , second trimester O09.512 [place] [address], [place] [address]- 2742 Mar, 20 weeks gestation of Z3A.20 ; Second trimester Z33.1 and Abnormal chromosomal and genetic finding on screening mother O28.5 [place] [address] [place] [address] 13246- 7822 February, Dental examination Z01.20 [place] [address] [place] [address] 22615- 3984 February, 16 weeks gestation of Z3A.16 and Second trimester Z33.1 [place] [address] [place] [address] 89338587- 8886 February, Normal , first Z34.00 ; 12 weeks gestation of Z3A.12 ; Advanced maternal age, primigravida in first trimester, antepartum O09.511 and First trimester Z33.1 [place] [address] [place] [address] 09228832- 1651 Jan, care in first trimester Z34.91 ; Normal , first Z34.00 and 8 weeks gestation of Z3A.08 [place] [address] [place] [address] 95594- 4830 Dec, Less than 8 weeks gestation of Z3A.01 [place] [address] [place] [address] 87990- 2582 Dec, Encounter to establish care Z76.89 ; Anxiety F41.9 ; Mild episode of recurrent major depressive disorder F33.0 ; History of colitis Z87.19 ; Missed period N92.6 and Less than 8 weeks gestation of Z3A.01 IMMUNIZATIONS No Known Immunizations SOCIAL HISTORY Never Assessed REASON FOR VISIT PA for DM testing supplies PLAN OF CARE VITAL SIGNS MEDICATIONS Unknown Medications RESULTS No Results PROCEDURES No Known [...]
--- OUTSIDE RECORDS SUMMARY | 2018-07-01 18:54 | XMS REPORT ---
Author Author LAZ DENSON Organization [facility] Address [address] [place] [address] Care Team Providers Care Malt Roaster Name Role Phone LAZ DENSON Unavailable PROBLEMS Type Condition ICD9-CM Code EBO47-FT Code Onset Dates Condition Status SNOMED Code Problem Reactive airway disease without complication, unspecified asthma severity, unspecified whether persistent J45.909 Active 869450634585 Problem Anxiety F41.9 Active 66154675 Problem Mild episode of recurrent major depressive disorder F33.0 Active 456644355 ALLERGIES No Information ENCOUNTERS Encounter Location Date Diagnosis [place] [address] [place] [id number] [place] [address] 13711- 1733 February, [place] [address] 91068- 8749 Jan, Reactive airway disease without complication, unspecified asthma severity, unspecified whether persistent J45.909 and Sore throat J02.9 [place] [address] [place] [address] [id number] [place] [address] 85422- 2151 Nov, [place] [id number] [place] [address] 87924- 3598 Sep, care and examination Z39.2 ; Encounter for Depo- Provera contraception Z30.42 and control counseling Z30.09 [place] [id number] [place] [address] 09154- 5792 Aug, [place] [address] 12023- 9429 14 Aug, 2017 [place] [id number] [place] [address] 34523- 0448 Aug, [place] [address] [place] [address]- 9315 Aug, [place] [id number] [place] [address] 19215- 8045 Jul, [place] [id number] [place] [address] 42341- 4398 Jul, 37 weeks gestation of Z3A.37 and 36 weeks gestation of Z3A.36 [place] [address] [place] [address] 87660- 0737 Jul, Normal , first Z34.00 ; Oligohydramnios in third trimester, single or unspecified fetus O41.03X0 ; Diet controlled gestational diabetes mellitus (GDM), antepartum O24.410 ; 37 weeks gestation of Z3A.37 and Third trimester Z34.93 [place] [address] [place] [address] 14996- 2501 Jul, Oligohydramnios in third trimester, single or unspecified fetus O41.03X0 [place] [address], [place] [address]- 5153 Jul, [place] [address] [place] [address] 88164- 7902 Jul, 36 weeks gestation of Z3A.36 ; Oligohydramnios in third trimester, single or unspecified fetus O41.03X0 ; Diet controlled gestational diabetes mellitus (GDM), antepartum O24.410 and Third trimester Z34.93 [place] [address] [place] [address], [place] [address]- 4827 Jul, Diet controlled gestational diabetes mellitus (GDM) in third trimester O24.410 ; Oligohydramnios in third trimester, single or unspecified fetus O41.03X0 and Elderly primigravida in third trimester O09.513 [place] [address] [place] [address], [place] [address]- 0094 Jul, Normal , first Z34.00 ; 35 weeks gestation of Z3A.35 ; Third trimester Z34.93 ; Diet controlled gestational diabetes mellitus (GDM) in third trimester O24.410 and Advanced maternal age, primigravida in third trimester, antepartum O09.513 [facility] [id number], [place] [address]- 4796 Jul, [facility] [id number], [place] [address]- 8586 Jul, Gestational diabetes mellitus (GDM) in second trimester, gestational diabetes method of control unspecified O24.419 [facility] [address], [place] [address]- 1776 Jul, [facility] [address] [place] [address] 79703- 4988 Jul, 34 weeks gestation of Z3A.34 ; Gestational diabetes mellitus (GDM) in second trimester, gestational diabetes method of control unspecified O24.419 ; Third trimester Z34.93 and Advanced maternal age, primigravida in third trimester, antepartum O09.513 [facility] [id number], [place] [address]- 3953 Jun, [facility] [address], [place] [address]- 5944 Jun, [facility] [address], [place] [address]- 8849 Jun, [facility] [address], [place] [address]- 4011 Jun, Third trimester Z34.93 ; 32 weeks gestation of Z3A.32 and Diet controlled gestational diabetes mellitus (GDM) in third trimester O24.410 [facility] [address], [place] [address]- 1866 Jun, [facility] [address], [place] [address]- 0102 Jun, Normal , first Z34.00 ; Encounter for immunization Z23 ; 30 weeks gestation of Z3A.30 and Diet controlled gestational diabetes mellitus (GDM), antepartum O24.410 [place] [address], [place] [address]- 2741 Jun, Glucose tolerance test abnormal R73.02 [place] [address] [id number] [place] [address] 09707- 8943 May, Gestational diabetes mellitus (GDM) in second trimester, gestational diabetes method of control unspecified O24.419 [place] [id number] [place] [address] 40295- 1746 May, [place] [id number] [place] [address] 62602- 0512 May, [place] [id number] [place] [address] 69579- 5044 May, Acute pharyngitis, unspecified etiology J02.9 [place] [address] [place] [address] 30946- 5059 May, Second trimester Z33.1 and 28 weeks gestation of Z3A.28 [place] [address] [place] [address] 35673- 8671 Apr, [place] [address] [place] [address] 18427- 0116 Apr, care in second trimester Z34.92 ; Abnormal chromosomal and genetic finding on screening mother O28.5 ; 24 weeks gestation of Z3A.24 and Advanced maternal age, 1st , second trimester O09.512 [place] [address], [place] [address]- 4845 Mar, 20 weeks gestation of Z3A.20 ; Second trimester Z33.1 and Abnormal chromosomal and genetic finding on screening mother O28.5 [place] [address] [place] [address] 87326- 7586 February, Dental examination Z01.20 [place] [id number] [place] [address] 98382- 1012 February, 16 weeks gestation of Z3A.16 and Second trimester Z33.1 [place] [address] [place] [address] 499421- 7775 February, Normal , first Z34.00 ; 12 weeks gestation of Z3A.12 ; Advanced maternal age, primigravida in first trimester, antepartum O09.511 and First trimester Z33.1 [place] [address] [place] [address] 19588552- 4490 Jan, care in first trimester Z34.91 ; Normal , first Z34.00 and 8 weeks gestation of Z3A.08 [place] [id number] [place] [address] [id number]- 4685 Dec, Less than 8 weeks gestation of Z3A.01 [place] [address] [place] [address] 93701- 7829 Dec, Encounter to establish care Z76.89 ; Anxiety F41.9 ; Mild episode of recurrent major depressive disorder F33.0 ; History of colitis Z87.19 ; Missed period N92.6 and Less than 8 weeks gestation of Z3A.01 IMMUNIZATIONS No Known Immunizations SOCIAL HISTORY Never Assessed REASON FOR VISIT 3 hr gtt PLAN OF CARE VITAL SIGNS MEDICATIONS Unknown [...]
--- OUTSIDE RECORDS SUMMARY | 2018-07-01 18:54 | XMS REPORT ---
Author Author LAZ DENSON Organization [facility] Address [address] [place] [address] Care Team Providers Care Net Trainer Name Role Phone LAZ DENSON Unavailable PROBLEMS Type Condition ICD9-CM Code YKD05-SY Code Onset Dates Condition Status SNOMED Code Problem Reactive airway disease without complication, unspecified asthma severity, unspecified whether persistent J45.909 Active 070190260965 Problem Anxiety F41.9 Active 58537835 Problem Mild episode of recurrent major depressive disorder F33.0 Active 516875925 ALLERGIES No Known Allergies ENCOUNTERS Encounter Location Date Diagnosis [place] [id number] [place] [address] 60833- 2874 February, [place] [id number] [place] [address] 60802- 8555 04 Jan, 2018 Reactive airway disease without complication, unspecified asthma severity, unspecified whether persistent J45.909 and Sore throat J02.9 [place] [id number] [place] [address] 96830- 3312 Nov, [place] [id number] [place] [address] 80626- 4520 Sep, care and examination Z39.2 ; Encounter for Depo- Provera contraception Z30.42 and control counseling Z30.09 [place] [id number] [place] [address] 92735- 1720 Aug, [place] [address] 03017- 8767 14 Aug, 2017 [place] [id number] [place] [address] 11463- 6075 Aug, [place] [address] [place] [address]- 8298 Aug, [place] [id number] [place] [address] 21039- 1634 Jul, [facility] [id number] [place] [address] 54632- 8727 Jul, 37 weeks gestation of Z3A.37 and 36 weeks gestation of Z3A.36 [place] [id number] [place] [address] 86447- 8393 Jul, Normal , first Z34.00 ; Oligohydramnios in third trimester, single or unspecified fetus O41.03X0 ; Diet controlled gestational diabetes mellitus (GDM), antepartum O24.410 ; 37 weeks gestation of Z3A.37 and Third trimester Z34.93 [place] [address] [place] [address] 98272- 2590 Jul, Oligohydramnios in third trimester, single or unspecified fetus O41.03X0 [place] [address] [address] 1097 Jul, [place] [id number] [place] [address] 61937- 7930 Jul, 36 weeks gestation of Z3A.36 ; Oligohydramnios in third trimester, single or unspecified fetus O41.03X0 ; Diet controlled gestational diabetes mellitus (GDM), antepartum O24.410 and Third trimester Z34.93 [place] [id number] [address] 2262 Jul, Oligohydramnios in third trimester, single or unspecified fetus O41.03X0 ; Diet controlled gestational diabetes mellitus (GDM) in third trimester O24.410 and Elderly primigravida in third trimester O09.513 [place] [address] [address] 7106 Jul, Normal , first Z34.00 ; 35 weeks gestation of Z3A.35 ; Third trimester Z34.93 ; Diet controlled gestational diabetes mellitus (GDM) in third trimester O24.410 and Advanced maternal age, primigravida in third trimester, antepartum O09.513 [facility] [id number] [address] 2066 Jul, [facility] [address] [address] 2143 Jul, Gestational diabetes mellitus (GDM) in second trimester, gestational diabetes method of control unspecified O24.419 [facility] [id number] [address] 8793 Jul, [facility] [id number] [place] [address] 57802- 3191 Jul, 34 weeks gestation of Z3A.34 ; Gestational diabetes mellitus (GDM) in second trimester, gestational diabetes method of control unspecified O24.419 ; Third trimester Z34.93 and Advanced maternal age, primigravida in third trimester, antepartum O09.513 [facility] [id number] [address]- 6931 Jun, [facility] [id number] [address]- 5322 Jun, [facility] [address] [address]- 9399 Jun, [facility] [address] [address]- 2416 Jun, Third trimester Z34.93 ; 32 weeks gestation of Z3A.32 and Diet controlled gestational diabetes mellitus (GDM) in third trimester O24.410 [facility] [address] [address]- 4646 Jun, [facility] [address] [address]- 6831 Jun, Normal , first Z34.00 ; Encounter for immunization Z23 ; 30 weeks gestation of Z3A.30 and Diet controlled gestational diabetes mellitus (GDM), antepartum O24.410 [place] [address] [address]- 5112 Jun, Glucose tolerance test abnormal R73.02 [place] [id number] [place] [address] 06804- 1395 May, Gestational diabetes mellitus (GDM) in second trimester, gestational diabetes method of control unspecified O24.419 [place] [id number] [place] [address] 81185- 3272 May, [place] [id number] [place] [address] 26990- 3698 May, [place] [id number] [place] [address] 24327- 3595 May, Acute pharyngitis, unspecified etiology J02.9 [place] [id number] [place] [address] 05585- 9731 May, Second trimester Z33.1 and 28 weeks gestation of Z3A.28 [place] [id number] [place] [address] 78923- 5275 Apr, [place] [id number] [place] [address] 88824- 3411 Apr, care in second trimester Z34.92 ; Abnormal chromosomal and genetic finding on screening mother O28.5 ; 24 weeks gestation of Z3A.24 and Advanced maternal age, 1st , second trimester O09.512 [place] [address] [address]- 3162 Mar, 20 weeks gestation of Z3A.20 ; Second trimester Z33.1 and Abnormal chromosomal and genetic finding on screening mother O28.5 [place] [id number] [place] [address] 31975- 2214 February, Dental examination Z01.20 [place] [id number] [place] [address] 62884- 7417 February, 16 weeks gestation of Z3A.16 and Second trimester Z33.1 [place] [address] [place] [address] 51665- 9734 February, Normal , first Z34.00 ; 12 weeks gestation of Z3A.12 ; Advanced maternal age, primigravida in first trimester, antepartum O09.511 and First trimester Z33.1 [place] [address] 49551- 5415 Jan, care in first trimester Z34.91 ; Normal , first Z34.00 and 8 weeks gestation of Z3A.08 [place] [id number] [place] [address] 21779- 9681 Dec, Less than 8 weeks gestation of Z3A.01 [place] [address] 00819- 3528 Dec, Encounter to establish care Z76.89 ; Anxiety F41.9 ; Mild episode of recurrent major depressive disorder F33.0 ; History of colitis Z87.19 ; Missed period N92.6 and Less than 8 weeks gestation of Z3A.01 IMMUNIZATIONS No Known Immunizations SOCIAL HISTORY Never Assessed REASON FOR VISIT OB f/u-4 wk---DBennettRN, mucousy white/yellow discharge x 1 week PLAN OF CARE Activity Details Follow Up 2 Weeks Reason: VITAL SIGNS Height 62.5 in 2017-06-21 Weight 205 lbs 2017-06-21 Temperature 98.4 degrees Fahrenheit 2017-06-21 Heart Rate 110 bpm 2017-06-21 Respiratory Rate 20 2017-06-21 BMI 36.897 kg/m2 2017-06-21 Blood pressure systolic 120 mmHg 2017-06-21 Blood pressure diastolic 86 mmHg 2017-06-21 MEDICATIONS Medication Instructions Dosage Frequency Start Date End Date Duration Status - Orally Once a day 1 tablet 24h Active RESULTS Name Result Date Reference Range CBC 2017-06-21 WBC 8.1 3.4-10.8 RBC 4.01 3.77-5.28 Hemoglobin 11.8 11.1-15.9 Hematocrit 36.1 34.0-46.6 MCV 90 79-97 MCH 29.4 26.6-33.0 MCHC 32.7 31.5-35.7 RDW 12.8 12.3-15.4 Platelets 282 150-379 Neutrophils 74 Lymphs 19 Monocytes 5 Eos 1 Basos 0 Neutrophils (Absolute) 6.0 1.4-7.0 Lymphs (Absolute) 1.5 0.7-3.1 Monocytes(Absolute) 0.4 0.1-0.9 Eos (Absolute) 0.0 0.0-0.4 Baso (Absolute) 0.0 0.0-0.2 Immature Granulocytes 1 Immature Grans (Abs) 0.1 0.0-0.1 CULTURE, URINE 2017-06-21 Urine Culture, Routine Final report Result 1 No growth UA LONG DIP (IN HOUSE) 2017-06-21 Lot # [id number] Exp date 03/28/18 Clarity clear Color yellow Odor none GLU 2+ LIANET negative KET trace SG >=1.030 BLO trace-lysed pH 5.5 Protein trace URO 0.2 NIT negative TRISHA 1+ Lot # Exp date GLUCOSE LISANDRO 1 HOUR 2017-06-21 Gestational Diabetes Screen 168 65-139 PROCEDURES Procedure Date Ordered Result Body [facility] Jun [facility], 2017 URINALYSIS, AUTO, W/O SCOPE Jun 21, 2017 VENIPUNCT, ROUTINE* Jun 21, 2017 INSTRUCTIONS MEDICATIONS ADMINISTERED No Known Medications [...]
--- OUTSIDE RECORDS SUMMARY | 2018-07-01 18:54 | XMS REPORT ---
Author Author LAZ DENSON Organization [facility] Address [address] [place] [address] Care Team Providers Care Confidential Investigator Name Role Phone LAZ DENSON Unavailable PROBLEMS Type Condition ICD9-CM Code VRI42-AJ Code Onset Dates Condition Status SNOMED Code Problem Reactive airway disease without complication, unspecified asthma severity, unspecified whether persistent J45.909 Active 101771658502 Problem Anxiety F41.9 Active 88358028 Problem Mild episode of recurrent major depressive disorder F33.0 Active 412135676 ALLERGIES No Information ENCOUNTERS Encounter Location Date Diagnosis [place] [id number] [place] [address] 00086- 5637 February, [place] [address] [address]- 4676 Jan, Reactive airway disease without complication, unspecified asthma severity, unspecified whether persistent J45.909 and Sore throat J02.9 [place] [id number] [place] [address] 30787- 6026 Nov, [place] [id number] [place] [address] 16209- 5133 Sep, care and examination Z39.2 ; Encounter for Depo- Provera contraception Z30.42 and control counseling Z30.09 [place] [id number] [place] [address] 98332- 6647 Aug, [place] [address] 69474- 1372 14 Aug, 2017 [place] [id number] [place] [address] 79725- 4432 Aug, [place] [address] [place] [address]- 3267 Aug, [place] [id number] [place] [address] 75729- 9284 Jul, [place] [id number] [place] [address] 98923- 9047 Jul, 37 weeks gestation of Z3A.37 and 36 weeks gestation of Z3A.36 [place] [id number] [place] [address] 06373- 3965 Jul, Normal , first Z34.00 ; Oligohydramnios in third trimester, single or unspecified fetus O41.03X0 ; Diet controlled gestational diabetes mellitus (GDM), antepartum O24.410 ; 37 weeks gestation of Z3A.37 and Third trimester Z34.93 [place] [address] [place] [address] 16061- 2939 Jul, Oligohydramnios in third trimester, single or unspecified fetus O41.03X0 [place] [address] [address]- 1938 Jul, [place] [id number] [place] [address] 29871- 2376 Jul, 36 weeks gestation of Z3A.36 ; Oligohydramnios in third trimester, single or unspecified fetus O41.03X0 ; Diet controlled gestational diabetes mellitus (GDM), antepartum O24.410 and Third trimester Z34.93 [place] [id number] [address]- 5260 Jul, Oligohydramnios in third trimester, single or unspecified fetus O41.03X0 ; Diet controlled gestational diabetes mellitus (GDM) in third trimester O24.410 and Elderly primigravida in third trimester O09.513 [place] [id number] [place] [address] 30922- 3130 Jul, Normal , first Z34.00 ; 35 weeks gestation of Z3A.35 ; Third trimester Z34.93 ; Diet controlled gestational diabetes mellitus (GDM) in third trimester O24.410 and Advanced maternal age, primigravida in third trimester, antepartum O09.513 [facility] [id number] [address]- 4216 Jul, [facility] [id number] [address]- 3386 Jul, Gestational diabetes mellitus (GDM) in second trimester, gestational diabetes method of control unspecified O24.419 [facility] [id number] [address]- 2836 Jul, [facility] [address] [place] [address] 54746- 1057 Jul, 34 weeks gestation of Z3A.34 ; Gestational diabetes mellitus (GDM) in second trimester, gestational diabetes method of control unspecified O24.419 ; Third trimester Z34.93 and Advanced maternal age, primigravida in third trimester, antepartum O09.513 [facility] [id number] [address]- 3975 Jun, [facility] [address] [address]- 4075 Jun, [facility] [address] [address]- 7196 Jun, [facility] [address] [address]- 1697 Jun, Third trimester Z34.93 ; 32 weeks gestation of Z3A.32 and Diet controlled gestational diabetes mellitus (GDM) in third trimester O24.410 [facility] [id number] [address]- 3726 Jun, [facility] [address] [address]- 5147 Jun, Normal , first Z34.00 ; Encounter for immunization Z23 ; 30 weeks gestation of Z3A.30 and Diet controlled gestational diabetes mellitus (GDM), antepartum O24.410 [place] [address] [address]- 4080 Jun, Glucose tolerance test abnormal R73.02 [place] [id number] [place] [address] 28721- 0344 May, Gestational diabetes mellitus (GDM) in second trimester, gestational diabetes method of control unspecified O24.419 [place] [id number] [place] [address] 12744- 8156 May, [place] [id number] [place] [address] 88518- 9302 May, [place] [id number] [place] [address] 98189- 6906 May, Acute pharyngitis, unspecified etiology J02.9 [place] [id number] [place] [address] 78539- 7324 May, Second trimester Z33.1 and 28 weeks gestation of Z3A.28 [place] [id number] [place] [address] 63920- 9762 Apr, [place] [id number] [place] [address] 91561- 8645 Apr, care in second trimester Z34.92 ; Abnormal chromosomal and genetic finding on screening mother O28.5 ; 24 weeks gestation of Z3A.24 and Advanced maternal age, 1st , second trimester O09.512 [place] [address] [address]- 0394 Mar, 20 weeks gestation of Z3A.20 ; Second trimester Z33.1 and Abnormal chromosomal and genetic finding on screening mother O28.5 [place] [id number] [place] [address] 71482- 4327 February, Dental examination Z01.20 [place] [id number] [place] [address] 01591- 8268 February, 16 weeks gestation of Z3A.16 and Second trimester Z33.1 [place] [address] [place] [address] 69002916- 4646 February, Normal , first Z34.00 ; 12 weeks gestation of Z3A.12 ; Advanced maternal age, primigravida in first trimester, antepartum O09.511 and First trimester Z33.1 [place] [id number] [place] [address] 36360662- 0711 Jan, care in first trimester Z34.91 ; Normal , first Z34.00 and 8 weeks gestation of Z3A.08 [place] [id number] [place] [address] 29227386- 5269 Dec, Less than 8 weeks gestation of Z3A.01 [place] [address] [place] [address] 10688- 1986 Dec, Encounter to establish care Z76.89 ; Anxiety F41.9 ; Mild episode of recurrent major depressive disorder F33.0 ; History of colitis Z87.19 ; Missed period N92.6 and Less than 8 weeks gestation of Z3A.01 IMMUNIZATIONS No Known Immunizations SOCIAL HISTORY Never Assessed REASON FOR VISIT Gestational DM ed scheduled PLAN OF CARE VITAL SIGNS MEDICATIONS Unknown [...]
--- OUTSIDE RECORDS SUMMARY | 2018-07-01 18:54 | XMS REPORT ---
Author Author LAZ DENSON [facility] Address [address] [place] [address] Care Team Providers Care Mixing Supervisor Name Role Phone LAZ DENSON Unavailable PROBLEMS Type Condition ICD9-CM Code ZGA23-SW Code Onset Dates Condition Status SNOMED Code Problem Abnormal chromosomal and genetic finding on screening mother O28.5 Active 394304664 Problem Anxiety F41.9 Active 41169598 Problem Mild episode of recurrent major depressive disorder F33.0 Active 611238043 ALLERGIES No Information ENCOUNTERS Encounter Location Date Diagnosis [place] [address] [place] [id number] [place] [address] 09892- 6354 Nov, [place] [address] [address]- [address] 13 Sep, 2017 care and examination Z39.2 ; Encounter for Depo- Provera contraception Z30.42 and control counseling Z30.09 [place] [address] [address] [id number] [place] [address] 22273- 1670 28 Aug, 2017 [place] [id number] [place] [address] 41708- 3788 14 Aug, 2017 [place] [address] [id number] [place] [address] 34209- 5364 Aug, [place] [address] [id number] [place] [address] 68035- 4368 Aug, [place] [id number] [place] [address] 85112- 4412 Jul, [place] [address] [place] [address] 10016- 5364 Jul, 37 weeks gestation of Z3A.37 and 36 weeks gestation of Z3A.36 [place] [address], [place] [address] Jul, Normal , first Z34.00 ; Oligohydramnios in third trimester, single or unspecified fetus O41.03X0 ; Diet controlled gestational diabetes mellitus (GDM), antepartum O24.410 ; 37 weeks gestation of Z3A.37 and Third trimester Z34.93 [place] [id number] [place] [address] 65579- 7020 Jul, Oligohydramnios in third trimester, single or unspecified fetus O41.03X0 [place] [id number] [place] [address] 22465- 9148 Jul, [place] [address] [id number] [place] [address] 78120- 1800 Jul, 36 weeks gestation of Z3A.36 ; Oligohydramnios in third trimester, single or unspecified fetus O41.03X0 ; Diet controlled gestational diabetes mellitus (GDM), antepartum O24.410 and Third trimester Z34.93 [place] [id number] [address] 9269 Jul, Oligohydramnios in third trimester, single or unspecified fetus O41.03X0 ; Diet controlled gestational diabetes mellitus (GDM) in third trimester O24.410 and Elderly primigravida in third trimester O09.513 [place] [address] [place] [address] 65482- 5026 Jul, Normal , first Z34.00 ; 35 weeks gestation of Z3A.35 ; Third trimester Z34.93 ; Diet controlled gestational diabetes mellitus (GDM) in third trimester O24.410 and Advanced maternal age, primigravida in third trimester, antepartum O09.513 [place] [address], [place] [address] 4755 Jul, [place] [address] [id number] [place] [address] 05460- 2678 Jul, Gestational diabetes mellitus (GDM) in second trimester, gestational diabetes method of control unspecified O24.419 [facility] [address] [place] [address] 86592- 4147 Jul, [facility] [id number] [place] [address] 48190- 4437 Jul, 34 weeks gestation of Z3A.34 ; Gestational diabetes mellitus (GDM) in second trimester, gestational diabetes method of control unspecified O24.419 ; Third trimester Z34.93 and Advanced maternal age, primigravida in third trimester, antepartum O09.513 [facility] [id number] [place] [address] 60060- 5434 Jun, [facility] [address] [id number] [place] [address] 96361- 6368 Jun, [facility] [address] [id number] [place] [address] 80431- 7083 Jun, [facility] [id number] [place] [address] 99291- 9064 Jun, Third trimester Z34.93 ; 32 weeks gestation of Z3A.32 and Diet controlled gestational diabetes mellitus (GDM) in third trimester O24.410 [facility] [address] [place] [address] 31915- 3632 Jun, [facility] [id number] [place] [address] 45155- 1052 Jun, Normal , first Z34.00 ; Encounter for immunization Z23 ; 30 weeks gestation of Z3A.30 and Diet controlled gestational diabetes mellitus (GDM), antepartum O24.410 [facility] [id number] [place] [address] 57377- 0110 Jun, Glucose tolerance test abnormal R73.02 [facility] [address] [place] [address] 44837- 1072 May, Gestational diabetes mellitus (GDM) in second trimester, gestational diabetes method of control unspecified O24.419 [place] [address], [place] [address]- 9646 May, [place] [address], [place] [address] 6778 May, [place] [address] [place] [address] 34847- 3483 May, Acute pharyngitis, unspecified etiology J02.9 [place] [address] [id number] [place] [address] 80199- 3776 May, Second trimester Z33.1 and 28 weeks gestation of Z3A.28 [place] [address] [address] [id number] [place] [address] 61087- 5015 Apr, [place] [address] [id number] [place] [address] 21381- 1910 Apr, care in second trimester Z34.92 ; Abnormal chromosomal and genetic finding on screening mother O28.5 ; 24 weeks gestation of Z3A.24 and Advanced maternal age, 1st , second trimester O09.512 [place] [address] [place] [address] 55550- 3658 Mar, 20 weeks gestation of Z3A.20 ; Second trimester Z33.1 and Abnormal chromosomal and genetic finding on screening mother O28.5 [place] [address] [place] [address] 98476- 9108 February, Dental examination Z01.20 [place] [address] [place] [address] 50353- 2229 February, 16 weeks gestation of Z3A.16 and Second trimester Z33.1 [place] [address] [place] [address] 47173- 0701 February, Normal , first Z34.00 ; 12 weeks gestation of Z3A.12 ; Advanced maternal age, primigravida in first trimester, antepartum O09.511 and First trimester Z33.1 [facility] [address] [facility] [id number] [address] 04 Jan, 2017 care in first trimester Z34.91 ; Normal , first Z34.00 and 8 weeks gestation of Z3A.08 [place] [address] [facility] [id number] [address] 0701 Dec, Less than 8 weeks gestation of Z3A.01 [place] [address] [place] [address] [id number] [address] 6990 07 Dec, 2016 Encounter to establish care Z76.89 ; Anxiety F41.9 ; Mild episode of recurrent major depressive disorder F33.0 ; History of colitis Z87.19 ; Missed period N92.6 and Less than 8 weeks gestation of Z3A.01 IMMUNIZATIONS No Known Immunizations SOCIAL HISTORY Never Assessed REASON FOR VISIT OB f/u-4 wk, feet swelling off and on , pt. states having alot of abdominal pain when she moves or tries to sleep----[place],[facility] PLAN OF CARE Activity Details Follow Up 4 Weeks Reason: VITAL SIGNS Height 62.5 in 2017-05-22 Weight 203.1 lbs 2017-05-22 Temperature 97.6 degrees Fahrenheit 2017-05-22 Heart Rate 77 bpm 2017-05-22 Respiratory Rate 18 2017-05-22 BMI 36.555 kg/m2 2017-05-22 Blood pressure systolic 123 mmHg 2017-05-22 Blood pressure diastolic 82 mmHg 2017-05-22 MEDICATIONS Medication Instructions Dosage Frequency Start Date End Date Duration Status - Orally Once a day 1 tablet 24h Active RESULTS Name Result Date Reference Range UA OB DIP (IN HOUSE) 2017-05-22 Glucose Negative Protein Trace PROCEDURES Procedure Date Ordered Result Body Site URINE-NO MICRO May 22, 2017 INSTRUCTIONS MEDICATIONS ADMINISTERED No Known Medications [...]
--- OUTSIDE RECORDS SUMMARY | 2018-07-01 18:54 | XMS REPORT ---
Author Author LAZ DENSON Organization [facility] Address [address] [place] [address] Care Team Providers Care Tamale Machine Feeder Name Role Phone LAZ DENSON Unavailable PROBLEMS Type Condition ICD9-CM Code QZC97-OL Code Onset Dates Condition Status SNOMED Code Problem Reactive airway disease without complication, unspecified asthma severity, unspecified whether persistent J45.909 Active 059952607266 Problem Anxiety F41.9 Active 08146448 Problem Mild episode of recurrent major depressive disorder F33.0 Active 826406781 ALLERGIES No Information ENCOUNTERS Encounter Location Date Diagnosis [place] [id number] [place] [id number] [place] [address] 37890- 6047 February, [place] [address] [address]61- 5849 Jan, Reactive airway disease without complication, unspecified asthma severity, unspecified whether persistent J45.909 and Sore throat J02.9 [place] [address] [place] [address] [id number] [place] [address] 38336- 1431 Nov, [place] [id number] [place] [address] 89770- 1247 Sep, care and examination Z39.2 ; Encounter for Depo- Provera contraception Z30.42 and control counseling Z30.09 [place] [id number] [place] [address] 95015- 4243 Aug, [place] [address] 74340- 3163 14 Aug, 2017 [place] [id number] [place] [address] 03120- 1216 Aug, [place] [address] [place] [address]- 8826 Aug, [place] [address] [id number] [place] [address] 96470- 7791 Jul, [place] [address] [id number] [place] [address] 26745- 9779 Jul, 37 weeks gestation of Z3A.37 and 36 weeks gestation of Z3A.36 [place] [address] [id number] [place] [address] 90753- 4051 Jul, Normal , first Z34.00 ; Oligohydramnios in third trimester, single or unspecified fetus O41.03X0 ; Diet controlled gestational diabetes mellitus (GDM), antepartum O24.410 ; 37 weeks gestation of Z3A.37 and Third trimester Z34.93 [place] [address] [place] [address] 27172- 9041 Jul, Oligohydramnios in third trimester, single or unspecified fetus O41.03X0 [place] [address] [address]- 3582 Jul, [place] [address] [place] [address] [id number] [place] [address] 61783- 4615 Jul, 36 weeks gestation of Z3A.36 ; Oligohydramnios in third trimester, single or unspecified fetus O41.03X0 ; Diet controlled gestational diabetes mellitus (GDM), antepartum O24.410 and Third trimester Z34.93 [place] [address] [place] [id number] [address]- 0925 Jul, Oligohydramnios in third trimester, single or unspecified fetus O41.03X0 ; Diet controlled gestational diabetes mellitus (GDM) in third trimester O24.410 and Elderly primigravida in third trimester O09.513 [place] [address] [place] [id number] [place] [address] 66325- 8966 Jul, Normal , first Z34.00 ; 35 weeks gestation of Z3A.35 ; Third trimester Z34.93 ; Diet controlled gestational diabetes mellitus (GDM) in third trimester O24.410 and Advanced maternal age, primigravida in third trimester, antepartum O09.513 [facility] [address] [place] [id number] [address]- 8036 Jul, [facility] [id number] [address]- 4656 Jul, Gestational diabetes mellitus (GDM) in second trimester, gestational diabetes method of control unspecified O24.419 [facility] [id number] [address]- 9656 Jul, [facility] [address] [place] [address] 66058- 8373 Jul, 34 weeks gestation of Z3A.34 ; Gestational diabetes mellitus (GDM) in second trimester, gestational diabetes method of control unspecified O24.419 ; Third trimester Z34.93 and Advanced maternal age, primigravida in third trimester, antepartum O09.513 [facility] [address] [id number] [address]- 6830 Jun, [facility] [address] [address]- 3769 Jun, [facility] [address] [address]- 8450 Jun, [facility] [address] [address]- 9441 Jun, Third trimester Z34.93 ; 32 weeks gestation of Z3A.32 and Diet controlled gestational diabetes mellitus (GDM) in third trimester O24.410 [facility] [address] [id number] [address]- 0866 Jun, [facility] [address] [address]- 1706 Jun, Normal , first Z34.00 ; Encounter for immunization Z23 ; 30 weeks gestation of Z3A.30 and Diet controlled gestational diabetes mellitus (GDM), antepartum O24.410 [place] [address] [address]- 9211 Jun, Glucose tolerance test abnormal R73.02 [place] [address] [id number] [place] [address] 26010- 6062 May, Gestational diabetes mellitus (GDM) in second trimester, gestational diabetes method of control unspecified O24.419 [place] [id number] [place] [address] 84281- 1984 May, [place] [address] [id number] [place] [address] 38351- 2214 May, [place] [address] [address] [id number] [place] [address] 21678- 9101 May, Acute pharyngitis, unspecified etiology J02.9 [place] [address] [id number] [place] [address] 62664- 8201 May, Second trimester Z33.1 and 28 weeks gestation of Z3A.28 [place] [address] [place] [id number] [place] [address] 35907- 0282 Apr, [place] [address] [id number] [place] [address] 80577- 8214 Apr, care in second trimester Z34.92 ; Abnormal chromosomal and genetic finding on screening mother O28.5 ; 24 weeks gestation of Z3A.24 and Advanced maternal age, 1st , second trimester O09.512 [place] [address] [address]- 4779 Mar, 20 weeks gestation of Z3A.20 ; Second trimester Z33.1 and Abnormal chromosomal and genetic finding on screening mother O28.5 [place] [address] [id number] [place] [address] 95849- 5946 February, Dental examination Z01.20 [place] [address] [id number] [place] [address] 26641- 2030 February, 16 weeks gestation of Z3A.16 and Second trimester Z33.1 [place] [address] [place] [address] 69844887- 8209 February, Normal , first Z34.00 ; 12 weeks gestation of Z3A.12 ; Advanced maternal age, primigravida in first trimester, antepartum O09.511 and First trimester Z33.1 [place] [address] [id number] [place] [address] 62135449- 1903 Jan, care in first trimester Z34.91 ; Normal , first Z34.00 and 8 weeks gestation of Z3A.08 [place] [address] [place] [id number] [place] [address] [id number]- 1190 Dec, Less than 8 weeks gestation of Z3A.01 [place] [address] [place] [address] 96083- 5189 Dec, Encounter to establish care Z76.89 ; Anxiety F41.9 ; Mild episode of recurrent major depressive disorder F33.0 ; History of colitis Z87.19 ; Missed period N92.6 and Less than 8 weeks gestation of Z3A.01 IMMUNIZATIONS No Known Immunizations SOCIAL HISTORY Never Assessed REASON FOR VISIT [facility] Intake PLAN OF CARE VITAL SIGNS MEDICATIONS Unknown [...]
--- OUTSIDE RECORDS SUMMARY | 2018-07-01 18:55 | XMS REPORT ---
Author Author LAZ DENSON Organization [facility] Address [address] [place] [address] Care Team Providers Care Assistant County Engineer Name Role Phone LAZ DENSON Unavailable PROBLEMS Type Condition ICD9-CM Code [id number] Code Onset Dates Condition Status SNOMED Code Problem Abnormal chromosomal and genetic finding on screening mother O28.5 Active 780900126 Problem Anxiety F41.9 Active 19358341 Problem Mild episode of recurrent major depressive disorder F33.0 Active 879994083 ALLERGIES No Known Allergies SOCIAL HISTORY Never Assessed PLAN OF CARE Activity Details Follow Up 4 Weeks Reason: VITAL SIGNS Height 62.5 in 2017-03-27 Weight 198.3 lbs 2017-03-27 Temperature 97.9 degrees Fahrenheit 2017-03-27 BMI 35.692 kg/m2 2017-03-27 Blood pressure systolic 116 mmHg 2017-03-27 Blood pressure diastolic 70 mmHg 2017-03-27 MEDICATIONS Medication Instructions Dosage Frequency Start Date End Date Duration Status - Orally Once a day 1 tablet 24h Active RESULTS No Results PROCEDURES Procedure Date Ordered Result Body Site URINE-NO MICRO March 27, 2017 LAB NOT BILLED BY [facility] March 27, 2017 VENIPUNCT, ROUTINE* March 27, 2017 IMMUNIZATIONS No Known Immunizations MEDICAL (GENERAL) HISTORY Type Description Date Medical History depression Medical History anxiety Medical History chronic pain Medical History sigmoid colitis Medical History right knee lateral ligament avulsuion injury- proximal fibula Medical History pcos Medical History Umbilical Hernia Surgical History appendectomy 1989 Hospitalization History surgeries Hospitalization History swollen colon 2011 Hospitalization History cyst on ovaries 1995
--- OUTSIDE RECORDS SUMMARY | 2018-07-01 18:55 | XMS REPORT ---
Author Author LAZ DENSON Organization [facility] Address [address] [place] [address] Care Team Providers Care Supervisor Facepiece Line Name Role Phone LAZ DENSON Unavailable PROBLEMS Type Condition ICD9-CM Code TQB61-YH Code Onset Dates Condition Status SNOMED Code Problem Abnormal chromosomal and genetic finding on screening mother O28.5 Active 970984102 Problem Anxiety F41.9 Active 13820018 Problem Mild episode of recurrent major depressive disorder F33.0 Active 239967083 ALLERGIES No Known Allergies SOCIAL HISTORY Never Assessed PLAN OF CARE Activity Details Follow Up 4 Weeks Reason: VITAL SIGNS Height 62.5 in 2017-02-27 Weight 195.0 lbs 2017-02-27 Temperature 97.1 degrees Fahrenheit 2017-02-27 Heart Rate 86 bpm 2017-02-27 Respiratory Rate 18 2017-02-27 BMI 35.098 kg/m2 2017-02-27 Blood pressure systolic 108 mmHg 2017-02-27 Blood pressure diastolic 70 mmHg 2017-02-27 MEDICATIONS Medication Instructions Dosage Frequency Start Date End Date Duration Status - Orally Once a day 1 tablet 24h Active RESULTS No Results PROCEDURES Procedure Date Ordered Result Body Site URINE-NO MICRO February 27, 2017 IMMUNIZATIONS No Known Immunizations MEDICAL [...]
--- OUTSIDE RECORDS SUMMARY | 2018-07-01 18:55 | XMS REPORT ---
Author Author LAZ DENSON Organization [facility] Address [address] [place] [address] Care Team Providers Care Postdoctoral Scientist Name Role Phone LAZ DENSON Unavailable PROBLEMS Type Condition ICD9-CM Code HVI79-LO Code Onset Dates Condition Status SNOMED Code Problem Reactive airway disease without complication, unspecified asthma severity, unspecified whether persistent J45.909 Active 113911032728 Problem Anxiety F41.9 Active 36345687 Problem Mild episode of recurrent major depressive disorder F33.0 Active 030905212 ALLERGIES No Information ENCOUNTERS Encounter Location Date Diagnosis [place] [id number] [place] [id number] [place] [address] 77726- 6060 February, [place] [address] [address] Jan, Reactive airway disease without complication, unspecified asthma severity, unspecified whether persistent J45.909 and Sore throat J02.9 [place] [address] [place] [id number] [place] [address] 92636- 0674 Nov, [place] [id number] [place] [address] 92781- 6921 Sep, care and examination Z39.2 ; Encounter for Depo- Provera contraception Z30.42 and control counseling Z30.09 [place] [address] [address] [id number] [place] [address] 21697- 2786 Aug, [place] [address] 07[address]- 9487 14 Aug, 2017 [place] [address] [address] [id number] [place] [address] 43185- 5987 Aug, [place] [address] [place] [address] 0954 Aug, [place] [address] [id number] [place] [address] 57188- 3222 Jul, [place] [address] [id number] [place] [address] 31537- 9247 Jul, 37 weeks gestation of Z3A.37 and 36 weeks gestation of Z3A.36 [place] [address] [id number] [place] [address] 95542- 0350 Jul, Normal , first Z34.00 ; Oligohydramnios in third trimester, single or unspecified fetus O41.03X0 ; Diet controlled gestational diabetes mellitus (GDM), antepartum O24.410 ; 37 weeks gestation of Z3A.37 and Third trimester Z34.93 [place] [address] [place] [address] 33544- 6494 Jul, Oligohydramnios in third trimester, single or unspecified fetus O41.03X0 [place] [address] [address] 09[address] Jul, [place] [address] [place] [id number] [place] [address] 96380- 8167 Jul, 36 weeks gestation of Z3A.36 ; Oligohydramnios in third trimester, single or unspecified fetus O41.03X0 ; Diet controlled gestational diabetes mellitus (GDM), antepartum O24.410 and Third trimester Z34.93 [place] [address] [place] [id number] [address] Jul, Oligohydramnios in third trimester, single or unspecified fetus O41.03X0 ; Diet controlled gestational diabetes mellitus (GDM) in third trimester O24.410 and Elderly primigravida in third trimester O09.513 [place] [address] [place] [id number] [place] [address] 02722- 7661 Jul, Normal , first Z34.00 ; 35 weeks gestation of Z3A.35 ; Third trimester Z34.93 ; Diet controlled gestational diabetes mellitus (GDM) in third trimester O24.410 and Advanced maternal age, primigravida in third trimester, antepartum O09.513 [facility] [address] [id number] [address] Jul, [facility] [address] [place] [id number] [address] 2406 Jul, Gestational diabetes mellitus (GDM) in second trimester, gestational diabetes method of control unspecified O24.419 [facility] [address] [place] [address] [id number], [place] [address] Jul, [facility] [address] [place] [address] 38535- 9547 Jul, 34 weeks gestation of Z3A.34 ; Gestational diabetes mellitus (GDM) in second trimester, gestational diabetes method of control unspecified O24.419 ; Third trimester Z34.93 and Advanced maternal age, primigravida in third trimester, antepartum O09.513 [facility] [address] [id number], [place] [address] Jun, [facility] [address] [place] [address] Jun, [facility] [address], [place] [address] Jun, [facility] [address] [address]- 4033 Jun, Third trimester Z34.93 ; 32 weeks gestation of Z3A.32 and Diet controlled gestational diabetes mellitus (GDM) in third trimester O24.410 [facility] [address] [place] [id number], [place] [address] Jun, [facility] [address], [place] [address]- 7357 Jun, Normal , first Z34.00 ; Encounter for immunization Z23 ; 30 weeks gestation of Z3A.30 and Diet controlled gestational diabetes mellitus (GDM), antepartum O24.410 [place] [address], [place] [address] 37[address] Jun, Glucose tolerance test abnormal R73.02 [place] [address] [address] [id number] [place] [address] 25855- 8459 May, Gestational diabetes mellitus (GDM) in second trimester, gestational diabetes method of control unspecified O24.419 [place] [address] [address] [id number] [place] [address] 12852- 2809 May, [place] [address] [address] [id number] [place] [address] 76760- 8352 May, [place] [address] [address] [id number] [place] [address] 09446- 9294 May, Acute pharyngitis, unspecified etiology J02.9 [place] [address] [address] [id number] [place] [address] 15703- 7463 May, Second trimester Z33.1 and 28 weeks gestation of Z3A.28 [place] [address] [id number] [place] [address] 99401- 4346 Apr, [place] [address] [place] [address] [id number] [place] [address] 15622- 9215 Apr, care in second trimester Z34.92 ; Abnormal chromosomal and genetic finding on screening mother O28.5 ; 24 weeks gestation of Z3A.24 and Advanced maternal age, 1st , second trimester O09.512 [place] [address], [place] [address]- 2431 Mar, 20 weeks gestation of Z3A.20 ; Second trimester Z33.1 and Abnormal chromosomal and genetic finding on screening mother O28.5 [place] [address] [id number] [place] [address] 53819- 2553 February, Dental examination Z01.20 [place] [address] [address] [id number] [place] [address] 86429- 6887 February, 16 weeks gestation of Z3A.16 and Second trimester Z33.1 [place] [address] [place] [address] [id number]- 7526 February, Normal , first Z34.00 ; 12 weeks gestation of Z3A.12 ; Advanced maternal age, primigravida in first trimester, antepartum O09.511 and First trimester Z33.1 [place] [id number] [place] [address] 34616320- 0953 Jan, care in first trimester Z34.91 ; Normal , first Z34.00 and 8 weeks gestation of Z3A.08 [place] [address] [place] [address] [id number] [place] [address] 41551- 7741 Dec, Less than 8 weeks gestation of Z3A.01 [place] [address] [place] [address] 50801- 3143 Dec, Encounter to establish care Z76.89 ; Anxiety F41.9 ; Mild episode of recurrent major depressive disorder F33.0 ; History of colitis Z87.19 ; Missed period N92.6 and Less than 8 weeks gestation of Z3A.01 IMMUNIZATIONS No Known Immunizations SOCIAL HISTORY Never Assessed REASON FOR VISIT GDM ed PLAN OF CARE VITAL SIGNS MEDICATIONS Unknown [...]
--- OUTSIDE RECORDS SUMMARY | 2018-07-01 18:55 | XMS REPORT ---
Author Author LAZ DENSON Organization [facility] Address [address] [place] [address] Care Team Providers Care Talcer Name Role Phone LAZ DENSON Unavailable PROBLEMS Type Condition ICD9-CM Code AZK13-UK Code Onset Dates Condition Status SNOMED Code Problem Reactive airway disease without complication, unspecified asthma severity, unspecified whether persistent J45.909 Active 696079800733 Problem Anxiety F41.9 Active 33391842 Problem Mild episode of recurrent major depressive disorder F33.0 Active 989281580 ALLERGIES No Information ENCOUNTERS Encounter Location Date Diagnosis [place] [address] [place] [id number] [place] [address] 00686- 6369 February, [place] [address] [address]- 7558 Jan, Reactive airway disease without complication, unspecified asthma severity, unspecified whether persistent J45.909 and Sore throat J02.9 [place] [address] [place] [id number] [place] [address] 22748- 2149 Nov, [place] [address] [id number] [place] [address] 09837- 6630 Sep, care and examination Z39.2 ; Encounter for Depo- Provera contraception Z30.42 and control counseling Z30.09 [place] [address] [id number] [place] [address] 94701- 2693 Aug, [place] [address] 03571- 9771 14 Aug, 2017 [place] [address] [place] [address] [id number] [place] [address] 22111- 7348 Aug, [place] [address] [place] [address]- 6027 Aug, [place] [address] [place] [id number] [place] [address] 82537- 7997 Jul, [place] [address] [place] [address] [id number] [place] [address] 51692- 0083 Jul, 37 weeks gestation of Z3A.37 and 36 weeks gestation of Z3A.36 [place] [address] [place] [address] [id number] [place] [address] 57867- 7910 Jul, Normal , first Z34.00 ; Oligohydramnios in third trimester, single or unspecified fetus O41.03X0 ; Diet controlled gestational diabetes mellitus (GDM), antepartum O24.410 ; 37 weeks gestation of Z3A.37 and Third trimester Z34.93 [place] [address] [place] [address] 41990- 3464 Jul, Oligohydramnios in third trimester, single or unspecified fetus O41.03X0 [place] [address] [address]- 1036 Jul, [place] [address] [place] [id number] [place] [address] 21628- 6569 Jul, 36 weeks gestation of Z3A.36 ; Oligohydramnios in third trimester, single or unspecified fetus O41.03X0 ; Diet controlled gestational diabetes mellitus (GDM), antepartum O24.410 and Third trimester Z34.93 [place] [address] [place] [id number] [address]- 5236 Jul, Diet controlled gestational diabetes mellitus (GDM) in third trimester O24.410 ; Oligohydramnios in third trimester, single or unspecified fetus O41.03X0 and Elderly primigravida in third trimester O09.513 [place] [address] [place] [id number] [address]- 7860 Jul, Normal , first Z34.00 ; 35 weeks gestation of Z3A.35 ; Third trimester Z34.93 ; Diet controlled gestational diabetes mellitus (GDM) in third trimester O24.410 and Advanced maternal age, primigravida in third trimester, antepartum O09.513 [facility] [address] [place] [id number] [address]- 0686 Jul, [facility] [address] [place] [address] [id number] [address]- 5376 Jul, Gestational diabetes mellitus (GDM) in second trimester, gestational diabetes method of control unspecified O24.419 [facility] [address] [place] [address] [id number] [address]- 6356 Jul, [facility] [address] [place] [address] 69707- 2975 Jul, 34 weeks gestation of Z3A.34 ; Gestational diabetes mellitus (GDM) in second trimester, gestational diabetes method of control unspecified O24.419 ; Third trimester Z34.93 and Advanced maternal age, primigravida in third trimester, antepartum O09.513 [facility] [address] [place] [id number] [address]- 7360 Jun, [facility] [address] [address]- 9547 Jun, [facility] [address] [address]- 9428 Jun, [facility] [address] [address]- 4300 Jun, Third trimester Z34.93 ; 32 weeks gestation of Z3A.32 and Diet controlled gestational diabetes mellitus (GDM) in third trimester O24.410 [facility] [address] [place] [id number] [address]- 9176 Jun, [facility] [address] [address]- 2133 Jun, Normal , first Z34.00 ; Encounter for immunization Z23 ; 30 weeks gestation of Z3A.30 and Diet controlled gestational diabetes mellitus (GDM), antepartum O24.410 [place] [address] [address]- 3544 Jun, Glucose tolerance test abnormal R73.02 [place] [address] [place] [address] [id number] [place] [address] 53147- 8748 May, Gestational diabetes mellitus (GDM) in second trimester, gestational diabetes method of control unspecified O24.419 [place] [address] [place] [address] [id number] [place] [address] 85892- 2567 May, [place] [address] [place] [address] [id number] [place] [address] 12728- 2043 May, [place] [address] [place] [address] [id number] [place] [address] 05147- 4671 May, Acute pharyngitis, unspecified etiology J02.9 [place] [address] [place] [address] [id number] [place] [address] 98952- 4435 May, Second trimester Z33.1 and 28 weeks gestation of Z3A.28 [place] [address] [place] [address] [id number] [place] [address] 60987- 6013 Apr, [place] [address] [place] [address] [id number] [place] [address] 34227- 3921 Apr, care in second trimester Z34.92 ; Abnormal chromosomal and genetic finding on screening mother O28.5 ; 24 weeks gestation of Z3A.24 and Advanced maternal age, 1st , second trimester O09.512 [place] [address] [address]- 3343 Mar, 20 weeks gestation of Z3A.20 ; Second trimester Z33.1 and Abnormal chromosomal and genetic finding on screening mother O28.5 [place] [address] [place] [address] [id number] [place] [address] 04665- 8744 February, Dental examination Z01.20 [place] [address] [place] [address] [id number] [place] [address] 12590- 1515 February, 16 weeks gestation of Z3A.16 and Second trimester Z33.1 [place] [address] [place] [address] 94644975- 4988 February, Normal , first Z34.00 ; 12 weeks gestation of Z3A.12 ; Advanced maternal age, primigravida in first trimester, antepartum O09.511 and First trimester Z33.1 [place] [address] [place] [address] [id number] [place] [address] 80478- 9514 Jan, care in first trimester Z34.91 ; Normal , first Z34.00 and 8 weeks gestation of Z3A.08 [place] [address] [place] [address] [id number] [place] [address] 01042- 4910 Dec, Less than 8 weeks gestation of Z3A.01 [place] [address] [place] [address] 18964- 8178 Dec, Encounter to establish care Z76.89 ; Anxiety F41.9 ; Mild episode of recurrent major depressive disorder F33.0 ; History of colitis Z87.19 ; Missed period N92.6 and Less than 8 weeks gestation of Z3A.01 IMMUNIZATIONS No Known Immunizations SOCIAL HISTORY Never Assessed REASON FOR VISIT GDM ed f/u PLAN OF CARE VITAL SIGNS MEDICATIONS Unknown [...]
--- OUTSIDE RECORDS SUMMARY | 2018-07-01 18:55 | XMS REPORT ---
Author Author SHARITA SIOMARA Organization [facility] Address [address] [place] [address] Care Team Providers Care Parcel Post Carrier Name Role Phone SHERIFF SIOMARA Unavailable PROBLEMS Type Condition ICD9-CM Code ZJV61-JS Code Onset Dates Condition Status SNOMED Code Problem Abnormal chromosomal and genetic finding on screening mother O28.5 Active 328159187 Problem Anxiety F41.9 Active 38437903 Problem Mild episode of recurrent major depressive disorder F33.0 Active 466013091 ALLERGIES No Known Allergies SOCIAL HISTORY Never Assessed PLAN OF CARE Activity Details Follow Up 1 Months Reason:CHM VITAL SIGNS Height 62.5 in 2017-01-02 Weight 195.3 lbs 2017-01-02 Temperature 98.5 degrees Fahrenheit 2017-01-02 Heart Rate 86 bpm 2017-01-02 Respiratory Rate 20 2017-01-02 BMI 35.15 kg/m2 2017-01-02 Blood pressure systolic 122 mmHg 2017-01-02 Blood pressure diastolic 72 mmHg 2017-01-02 MEDICATIONS Unknown Medications RESULTS Name Result Date Reference Range TEST, URINE (IN HOUSE) 2017-01-02 RESULTS Positive Lot # [id number] Control + Exp date 01/2018 THYROID ANALYZER 2017-01-02 TSH 1.580 0.450-4.500 A1C 2017-01-02 Hemoglobin A1c 5.6 4.8-5.6 HCG, QUANTITATIVE 2017-01-02 hCG,Beta Subunit,Qnt,Serum 138 CBC 2017-01-02 WBC 9.3 3.4-10.8 RBC 5.14 3.77-5.28 Hemoglobin 15.0 11.1-15.9 Hematocrit 43.8 34.0-46.6 MCV 85 79-97 MCH 29.2 26.6-33.0 MCHC 34.2 31.5-35.7 RDW 13.5 12.3-15.4 Platelets 355 150-379 Neutrophils 69 Lymphs 25 Monocytes 5 Eos 1 Basos 0 Neutrophils (Absolute) 6.3 1.4-7.0 Lymphs (Absolute) 2.3 0.7-3.1 Monocytes(Absolute) 0.5 0.1-0.9 Eos (Absolute) 0.1 0.0-0.4 Baso (Absolute) 0.0 0.0-0.2 Immature Granulocytes 0 Immature Grans (Abs) 0.0 0.0-0.1 LIPID PANEL 2017-01-02 Cholesterol, Total 196 100-199 Triglycerides 144 0-149 HDL Cholesterol 42 >39 VLDL Cholesterol Tay 29 5-40 LDL Cholesterol Calc 125 0-99 CMP 2017-01-02 Glucose, Serum 86 65-99 BUN 9 6-20 Creatinine, Serum 0.56 0.57-1.00 eGFR If NonAfricn Am 120 >59 eGFR If Africn Am 139 >59 BUN/Creatinine Ratio 16 8-20 Sodium, Serum 139 134-144 Potassium, Serum 3.8 3.5-5.2 Chloride, Serum 102 96-106 Carbon Dioxide, Total 21 18-29 Calcium, Serum 9.2 8.7-10.2 Protein, Total, Serum 7.0 6.0-8.5 Albumin, Serum 4.3 3.5-5.5 Globulin, Total 2.7 1.5-4.5 A/G Ratio 1.6 1.1-2.5 Bilirubin, Total 0.3 0.0-1.2 Alkaline Phosphatase, S 95 39-117 AST (SGOT) 24 0-40 ALT (SGPT) 23 0-32 Ultrasound : OB, Early <14 WEEKS 2017-01-09 PROCEDURES Procedure Date Ordered Result Body Site URINE TEST January 02, 2017 COMPREHEN METABOLIC PANEL January 02, 2017 LIPID PANEL January 02, 2017 VENIPUNCT, ROUTINE* January 02, 2017 GLYCATED HEMOGLOBIN TEST January 02, 2017 ASSAY THYROID STIM HORMONE January 02, 2017 COMPLETE CBC W/AUTO DIFF WBC January 02, 2017 CHORIONIC GONADOTROPIN TEST January 02, 2017 IMMUNIZATIONS No Known Immunizations MEDICAL (GENERAL) [...]
--- OUTSIDE RECORDS SUMMARY | 2018-07-01 18:55 | XMS REPORT ---
Author Author LAZ DENSON Organization [facility] Address [address] [place] [address] Care Team Providers Care Stamping Die Maker Bench Name Role Phone LAZ DENSON Unavailable PROBLEMS Type Condition ICD9-CM Code MWS83-VP Code Onset Dates Condition Status SNOMED Code Problem Reactive airway disease without complication, unspecified asthma severity, unspecified whether persistent J45.909 Active 239604698443 Problem Anxiety F41.9 Active 03211275 Problem Mild episode of recurrent major depressive disorder F33.0 Active 833131545 ALLERGIES No Known Allergies ENCOUNTERS Encounter Location Date Diagnosis [place] [id number] [id number] [place] [address] 56638- 7935 February, [place] [id number] [place] [address] 24950- 0696 04 Jan, 2018 Reactive airway disease without complication, unspecified asthma severity, unspecified whether persistent J45.909 and Sore throat J02.9 [place] [address] [place] [address] 75531- 8561 Nov, [place] [address] [place] [address] 92283- 5783 Sep, care and examination Z39.2 ; Encounter for Depo- Provera contraception Z30.42 and control counseling Z30.09 [place] [id number] [place] [address] 02979- 0361 Aug, [place] [address] [address]- [address] 14 Aug, 2017 [place] [id number] [place] [address] 11495- 7339 Aug, [place] [address] [place] [address] 457[address] Aug, [place] [address] [address] Jul, [facility] [address] [address] Jul, 37 weeks gestation of Z3A.37 and 36 weeks gestation of Z3A.36 [place] [id number] [place] [address] 43930- 2948 Jul, Normal , first Z34.00 ; Oligohydramnios in third trimester, single or unspecified fetus O41.03X0 ; Diet controlled gestational diabetes mellitus (GDM), antepartum O24.410 ; 37 weeks gestation of Z3A.37 and Third trimester Z34.93 [place] [address] [place] [address] 48274- 7659 Jul, Oligohydramnios in third trimester, single or unspecified fetus O41.03X0 [place] [address] [address] 67[address] Jul, [place] [id number] [place] [address] 03848- 6619 Jul, 36 weeks gestation of Z3A.36 ; Oligohydramnios in third trimester, single or unspecified fetus O41.03X0 ; Diet controlled gestational diabetes mellitus (GDM), antepartum O24.410 and Third trimester Z34.93 [place] [address] [address] 7148 Jul, Diet controlled gestational diabetes mellitus (GDM) in third trimester O24.410 ; Oligohydramnios in third trimester, single or unspecified fetus O41.03X0 and Elderly primigravida in third trimester O09.513 [place] [address] [id number] [address]33 Jul, Normal , first Z34.00 ; 35 weeks gestation of Z3A.35 ; Third trimester Z34.93 ; Diet controlled gestational diabetes mellitus (GDM) in third trimester O24.410 and Advanced maternal age, primigravida in third trimester, antepartum O09.513 [facility] [id number] [address] Jul, [facility] [address] [address] 9[address] Jul, Gestational diabetes mellitus (GDM) in second trimester, gestational diabetes method of control unspecified O24.419 [facility] [id number] [address] 27[address] Jul, [facility] [id number] [place] [address] 44612- 3166 Jul, 34 weeks gestation of Z3A.34 ; Gestational diabetes mellitus (GDM) in second trimester, gestational diabetes method of control unspecified O24.419 ; Third trimester Z34.93 and Advanced maternal age, primigravida in third trimester, antepartum O09.513 [facility] [id number] [address] 69[address] Jun, [facility] [id number] [address] 0[address] Jun, [facility] [address], [place] [address]- 9279 Jun, [facility] [address] [address]- 4779 Jun, Third trimester Z34.93 ; 32 weeks gestation of Z3A.32 and Diet controlled gestational diabetes mellitus (GDM) in third trimester O24.410 [facility] [address], [place] [address]- 6[address] Jun, [facility] [address] [address]- 2340 Jun, Normal , first Z34.00 ; Encounter for immunization Z23 ; 30 weeks gestation of Z3A.30 and Diet controlled gestational diabetes mellitus (GDM), antepartum O24.410 [place] [address], [place] [address] 64[address] Jun, Glucose tolerance test abnormal R73.02 [place] [id number] [place] [address] 06064- 7694 May, Gestational diabetes mellitus (GDM) in second trimester, gestational diabetes method of control unspecified O24.419 [place] [id number] [place] [address] 05483- 7681 May, [place] [id number] [place] [address] 55389- 1438 May, [place] [id number] [place] [address] 84255- 6302 May, Acute pharyngitis, unspecified etiology J02.9 [place] [id number] [place] [address] 61476- 7015 May, Second trimester Z33.1 and 28 weeks gestation of Z3A.28 [place] [id number] [place] [address] 05729- 5362 Apr, [place] [id number] [place] [address] 33136- 1836 Apr, care in second trimester Z34.92 ; Abnormal chromosomal and genetic finding on screening mother O28.5 ; 24 weeks gestation of Z3A.24 and Advanced maternal age, 1st , second trimester O09.512 [place] [address], [place] [address] 1992 Mar, 20 weeks gestation of Z3A.20 ; Second trimester Z33.1 and Abnormal chromosomal and genetic finding on screening mother O28.5 [place] [id number] [place] [address] 22018- 1580 February, Dental examination Z01.20 [place] [id number] [place] [address] 96445- 0763 February, 16 weeks gestation of Z3A.16 and Second trimester Z33.1 [place] [address] [place] [address] 78548- 9427 February, Normal , first Z34.00 ; 12 weeks gestation of Z3A.12 ; Advanced maternal age, primigravida in first trimester, antepartum O09.511 and First trimester Z33.1 [place] [id number] [place] [address] 82779- 0794 Jan, care in first trimester Z34.91 ; Normal , first Z34.00 and 8 weeks gestation of Z3A.08 [place] [id number] [place] [address] 27824- 1462 Dec, Less than 8 weeks gestation of Z3A.01 [place] [id number] [place] [address] 45163- 3490 Dec, Encounter to establish care Z76.89 ; Anxiety F41.9 ; Mild episode of recurrent major depressive disorder F33.0 ; History of colitis Z87.19 ; Missed period N92.6 and Less than 8 weeks gestation of Z3A.01 IMMUNIZATIONS No Known Immunizations SOCIAL HISTORY Never Assessed REASON FOR VISIT Cold symptoms, PT has a scratchy throat, head pressure, runny nose- [place] PLAN OF CARE Activity Details Follow Up keep f/u appt Reason: VITAL SIGNS Height 62.5 in 2017-06-26 Weight 209 lbs 2017-06-26 Temperature 99.4 degrees Fahrenheit 2017-06-26 Heart Rate 76 bpm 2017-06-26 Respiratory Rate 20 2017-06-26 BMI 37.61 kg/m2 2017-06-26 Blood pressure systolic 118 mmHg 2017-06-26 Blood pressure diastolic 76 mmHg 2017-06-26 MEDICATIONS Medication Instructions Dosage Frequency Start Date End Date Duration Status Keflex 500 mg Orally every 12 hrs 1 capsule 12h May, Jun, 07 days Active - Orally Once a day 1 tablet 24h Active RESULTS No Results PROCEDURES Procedure Date Ordered Result Body Site STREP A ASSAY W/OPTIC Jun 26, 2017 INSTRUCTIONS MEDICATIONS ADMINISTERED No Known Medications [...]
--- OUTSIDE RECORDS SUMMARY | 2018-07-01 18:56 | XMS REPORT ---
Author Author LAZ DENSON Organization [facility] Address [address] [place] [address] Care Team Providers Care Member Services Representative Name Role Phone LAZ DENSON Unavailable PROBLEMS Type Condition ICD9-CM Code AGQ91-GI Code Onset Dates Condition Status SNOMED Code Problem Reactive airway disease without complication, unspecified asthma severity, unspecified whether persistent J45.909 Active 748003652380 Problem Anxiety F41.9 Active 69460671 Problem Mild episode of recurrent major depressive disorder F33.0 Active 503917404 ALLERGIES No Information ENCOUNTERS Encounter Location Date Diagnosis [place] [address] [address] [id number] [place] [address] 80251- 7898 February, Well woman exam with routine gynecological exam Z01.419 [place] [address] [place] [address] [id number] [place] [address] 83530- 3436 04 Jan, 2018 Reactive airway disease without complication, unspecified asthma severity, unspecified whether persistent J45.909 and Sore throat J02.9 [place] [address] [place] [address] 65410- 0664 Nov, [facility] [id number] [place] [address] 11319- 4634 13 Sep, 2017 care and examination Z39.2 ; Encounter for Depo- Provera contraception Z30.42 and control counseling Z30.09 [place] [id number] [place] [address] 49779- 5181 Aug, [place] [id number] [place] [address] 73168- 3910 14 Aug, 2017 [place] [address] [id number] [place] [address] 61334- 3249 Aug, [place] [address] [address]- 7971 Aug, [place] [address] [address]- 5025 Jul, [facility] [address] [address]- 2157 Jul, 37 weeks gestation of Z3A.37 and 36 weeks gestation of Z3A.36 [place] [address] [address]- 1881 Jul, Normal , first Z34.00 ; Oligohydramnios in third trimester, single or unspecified fetus O41.03X0 ; Diet controlled gestational diabetes mellitus (GDM), antepartum O24.410 ; 37 weeks gestation of Z3A.37 and Third trimester Z34.93 [place] [address] [address]- 1008 Jul, Oligohydramnios in third trimester, single or unspecified fetus O41.03X0 [place] [address] [address]- 4531 Jul, [place] [address] [address]- 3873 Jul, 36 weeks gestation of Z3A.36 ; Oligohydramnios in third trimester, single or unspecified fetus O41.03X0 ; Diet controlled gestational diabetes mellitus (GDM), antepartum O24.410 and Third trimester Z34.93 [place] [address] [place] [id number] [address]- 8978 Jul, Oligohydramnios in third trimester, single or unspecified fetus O41.03X0 ; Diet controlled gestational diabetes mellitus (GDM) in third trimester O24.410 and Elderly primigravida in third trimester O09.513 [place] [address] [place] [id number] [address]- 7935 Jul, Normal , first Z34.00 ; 35 weeks gestation of Z3A.35 ; Third trimester Z34.93 ; Diet controlled gestational diabetes mellitus (GDM) in third trimester O24.410 and Advanced maternal age, primigravida in third trimester, antepartum O09.513 [facility] [address] [address]- 6914 Jul, [facility] [address] [place] [address] 00474- 1953 Jul, Gestational diabetes mellitus (GDM) in second trimester, gestational diabetes method of control unspecified O24.419 [facility] [address] [address]- 0120 Jul, [facility] [id number] [place] [address] 75566- 4336 Jul, 34 weeks gestation of Z3A.34 ; Gestational diabetes mellitus (GDM) in second trimester, gestational diabetes method of control unspecified O24.419 ; Third trimester Z34.93 and Advanced maternal age, primigravida in third trimester, antepartum O09.513 [facility] [address] [address]- 1816 Jun, [facility] [id number] [place] [address] 24479- 7312 Jun, [facility] [address] [address]- 2497 Jun, [facility] [id number] [place] [address] 11038- 2465 Jun, Third trimester Z34.93 ; 32 weeks gestation of Z3A.32 and Diet controlled gestational diabetes mellitus (GDM) in third trimester O24.410 [facility] [address] [address]- 0564 Jun, [facility] [address] [address]- 7370 Jun, Normal , first Z34.00 ; Encounter for immunization Z23 ; 30 weeks gestation of Z3A.30 and Diet controlled gestational diabetes mellitus (GDM), antepartum O24.410 [place] [id number] [place] [address] 39361- 7867 Jun, Glucose tolerance test abnormal R73.02 [place] [id number] [place] [address] 73665- 3212 May, Gestational diabetes mellitus (GDM) in second trimester, gestational diabetes method of control unspecified O24.419 [place] [id number] [place] [address] 99562- 6671 May, [place] [id number] [place] [address] 53687- 8589 May, [place] [address] [id number] [place] [address] 06366- 3131 May, Acute pharyngitis, unspecified etiology J02.9 [place] [id number] [place] [address] 72601- 0914 May, Second trimester Z33.1 and 28 weeks gestation of Z3A.28 [place] [id number] [place] [address] 00843- 7960 Apr, [place] [id number] [place] [address] 38527- 3746 Apr, care in second trimester Z34.92 ; Abnormal chromosomal and genetic finding on screening mother O28.5 ; 24 weeks gestation of Z3A.24 and Advanced maternal age, 1st , second trimester O09.512 [place] [address] [place] [address] 64879- 8184 Mar, 20 weeks gestation of Z3A.20 ; Second trimester Z33.1 and Abnormal chromosomal and genetic finding on screening mother O28.5 [place] [id number] [place] [address] 88468- 3778 February, Dental examination Z01.20 [place] [address] [place] [address]- 4650 February, 16 weeks gestation of Z3A.16 and Second trimester Z33.1 [place] [address] [address]- 7929 February, Normal , first Z34.00 ; 12 weeks gestation of Z3A.12 ; Advanced maternal age, primigravida in first trimester, antepartum O09.511 and First trimester Z33.1 [place] [id number] [place] [address] 33027- 8822 Jan, care in first trimester Z34.91 ; Normal , first Z34.00 and 8 weeks gestation of Z3A.08 [place] [id number] [place] [address] 16413- 6252 Dec, Less than 8 weeks gestation of Z3A.01 [place] [id number] [place] [address] 61426- 4925 Dec, Encounter to establish care Z76.89 ; [...]
--- OUTSIDE RECORDS SUMMARY | 2018-07-01 18:56 | XMS REPORT ---
Author Author LAZ DENSON Organization [facility] Address [address] [place] [address] Care Team Providers Care Hotel Guest Service Agent Name Role Phone LAZ DENSON Unavailable PROBLEMS Type Condition ICD9-CM Code JZI78-VS Code Onset Dates Condition Status SNOMED Code Problem Reactive airway disease without complication, unspecified asthma severity, unspecified whether persistent J45.909 Active 433604723437 Problem Anxiety F41.9 Active 05915040 Problem Mild episode of recurrent major depressive disorder F33.0 Active 352830608 ALLERGIES No Known Allergies ENCOUNTERS Encounter Location Date Diagnosis [place] [id number] [place] [address]99- [address] February, [place] [id number] [place] [address] 82329- [address] 04 Jan, 2018 Reactive airway disease without complication, unspecified asthma severity, unspecified whether persistent J45.909 and Sore throat J02.9 [place] [id number] [place] [address] 23607- 1266 Nov, [place] [id number] [place] [address] 50985- 7510 Sep, care and examination Z39.2 ; Encounter for Depo- Provera contraception Z30.42 and control counseling Z30.09 [place] [id number] [place] [address] 12434- 1250 Aug, [place] [address] [address] 14 Aug, 2017 [place] [id number] [place] [address] 87659- 3153 Aug, [place] [address] [place] [address] Aug, [place] [address], [place] [address] Jul, [facility] [address] [place] [address] Jul, 37 weeks gestation of Z3A.37 and 36 weeks gestation of Z3A.36 [place] [id number] [place] [address] 99501- 5533 Jul, Normal , first Z34.00 ; Oligohydramnios in third trimester, single or unspecified fetus O41.03X0 ; Diet controlled gestational diabetes mellitus (GDM), antepartum O24.410 ; 37 weeks gestation of Z3A.37 and Third trimester Z34.93 [place] [address] [place] [address] 25905- 9362 Jul, Oligohydramnios in third trimester, single or unspecified fetus O41.03X0 [place] [address] [place] [address] Jul, [place] [id number] [place] [address] 72965- 3984 Jul, 36 weeks gestation of Z3A.36 ; Oligohydramnios in third trimester, single or unspecified fetus O41.03X0 ; Diet controlled gestational diabetes mellitus (GDM), antepartum O24.410 and Third trimester Z34.93 [place] [address], [place] [address] Jul, Diet controlled gestational diabetes mellitus (GDM) in third trimester O24.410 ; Oligohydramnios in third trimester, single or unspecified fetus O41.03X0 and Elderly primigravida in third trimester O09.513 [place] [id number] [address] Jul, Normal , first Z34.00 ; 35 weeks gestation of Z3A.35 ; Third trimester Z34.93 ; Diet controlled gestational diabetes mellitus (GDM) in third trimester O24.410 and Advanced maternal age, primigravida in third trimester, antepartum O09.513 [facility] [id number] [address] Jul, [facility] [address] [place] [address] Jul, Gestational diabetes mellitus (GDM) in second trimester, gestational diabetes method of control unspecified O24.419 [facility] [id number] [address] Jul, [facility] [id number] [place] [address] 40378- 3682 Jul, 34 weeks gestation of Z3A.34 ; Gestational diabetes mellitus (GDM) in second trimester, gestational diabetes method of control unspecified O24.419 ; Third trimester Z34.93 and Advanced maternal age, primigravida in third trimester, antepartum O09.513 [facility] [id number] [address] Jun, [facility] [id number] [address] Jun, [facility] [address], [place] [address] Jun, [facility] [address] [place] [address] Jun, Third trimester Z34.93 ; 32 weeks gestation of Z3A.32 and Diet controlled gestational diabetes mellitus (GDM) in third trimester O24.410 [facility] [address] [place] [address] Jun, [facility] [address] [place] [address] Jun, Normal , first Z34.00 ; Encounter for immunization Z23 ; 30 weeks gestation of Z3A.30 and Diet controlled gestational diabetes mellitus (GDM), antepartum O24.410 [place] [address] [place] [address] Jun, Glucose tolerance test abnormal R73.02 [place] [id number] [place] [address] 54598- 5656 May, Gestational diabetes mellitus (GDM) in second trimester, gestational diabetes method of control unspecified O24.419 [place] [id number] [place] [address] 27992- 3884 May, [place] [id number] [place] [address] 62358- 6394 May, [place] [id number] [place] [address] 08695- 2464 May, Acute pharyngitis, unspecified etiology J02.9 [place] [id number] [place] [address] 34822- 8591 May, Second trimester Z33.1 and 28 weeks gestation of Z3A.28 [place] [id number] [place] [address] 60383- 6387 Apr, [place] [id number] [place] [address] 37975- 3637 Apr, care in second trimester Z34.92 ; Abnormal chromosomal and genetic finding on screening mother O28.5 ; 24 weeks gestation of Z3A.24 and Advanced maternal age, 1st , second trimester O09.512 [place] [address], [place] [address] Mar, 20 weeks gestation of Z3A.20 ; Second trimester Z33.1 and Abnormal chromosomal and genetic finding on screening mother O28.5 [place] [id number] [place] [address] 45772- 0621 February, Dental examination Z01.20 [place] [id number] [place] [address] 45335- 2907 February, 16 weeks gestation of Z3A.16 and Second trimester Z33.1 [place] [id number] [place] [address] 90391- 3889 February, Normal , first Z34.00 ; 12 weeks gestation of Z3A.12 ; Advanced maternal age, primigravida in first trimester, antepartum O09.511 and First trimester Z33.1 [place] [address] [address]- [address] Jan, care in first trimester Z34.91 ; Normal , first Z34.00 and 8 weeks gestation of Z3A.08 [place] [id number] [place] [address] 13337- 2347 Dec, Less than 8 weeks gestation of Z3A.01 [place] [id number] [place] [address] 30199- [address]23 Dec, Encounter to establish care Z76.89 ; Anxiety F41.9 ; Mild episode of recurrent major depressive disorder F33.0 ; History of colitis Z87.19 ; Missed period N92.6 and Less than 8 weeks gestation of Z3A.01 IMMUNIZATIONS Vaccine Route Administration Date Status RHOGAM FULL DOSE IM Intramuscular Jul 04, 2017 Administered TDAP (BOOSTRIX) IM Intramuscular Jul 04, 2017 Administered SOCIAL HISTORY Never Assessed REASON FOR VISIT 2 week ob fu---LEANDRAennettCARLOS PLAN OF CARE Activity Details Follow Up 2 Weeks Reason: VITAL SIGNS Height 62.5 in 2017-07-04 Weight 210 lbs 2017-07-04 Temperature 98.0 degrees Fahrenheit 2017-07-04 Heart Rate 100 bpm 2017-07-04 Respiratory Rate 20 2017-07-04 BMI 37.797 kg/m2 2017-07-04 Blood pressure systolic 120 mmHg 2017-07-04 Blood pressure diastolic 70 mmHg 2017-07-04 MEDICATIONS Medication Instructions Dosage Frequency Start Date End Date Duration Status Blood Glucose Test - as directed May, Active - Orally Once a day 1 tablet 24h Active Blood Glucose Monitor System w/Device as directed May, Active RESULTS Name Result Date Reference Range UA OB DIP (IN HOUSE) 2017-07-04 Glucose negative Protein trace PROCEDURES Procedure Date Ordered Result Body Site URINE-NO MICRO Jul 04, 2017 TDAP (BOOSTRIX) Jul 04, 2017 RH IG, FULL-DOSE, IM Jul 04, 2017 SINGLE IMMUNIZATION ADMIN Jul 04, 2017 THER/PROPH/DIAG INJ, SC/IM Jul 04, 2017 INSTRUCTIONS MEDICATIONS ADMINISTERED No Known Medications [...]
--- OUTSIDE RECORDS SUMMARY | 2018-07-01 18:56 | XMS REPORT ---
Author Author TORO PARSONS [facility] Address [address] [place] [address] Care Team Providers Care Scale Manager Name Role Phone TORO PARSONS Unavailable PROBLEMS Type Condition ICD9-CM Code LXL49-OB Code Onset Dates Condition Status SNOMED Code Problem Abnormal chromosomal and genetic finding on screening mother O28.5 Active 574547231 Problem Anxiety F41.9 Active 48469504 Problem Mild episode of recurrent major depressive disorder F33.0 Active 996963993 ALLERGIES No Information SOCIAL HISTORY Never Assessed PLAN OF CARE VITAL SIGNS MEDICATIONS Unknown Medications RESULTS No Results PROCEDURES Procedure Date Ordered Result Body Site SCREENING OF A PATIENT March 27, 2017 Billing Notes on claim March 27, 2017 IMMUNIZATIONS No Known Immunizations [...]
--- NOTE | 2018-07-01 18:59 | ED Upper Extremity ---
General Stated Complaint: ALMOST CUT FINGER OFF, L HAND INDEX Source: patient History of Present Illness Date Seen by Provider: Jul 01, 2018 Time Seen by Provider: 18:57 Initial Comments Patient is a 38-year-old female who presents to the emergency room with complaints of a laceration to the distal tip of her left index finger. She reports she cut her finger with a knife this evening while making dinner. She is up-to-date on tetanus vaccine. Onset: just prior to arrival Pain/Injury Location: left 2nd finger Method of Injury: incised Allergies and Home Medications Allergies Coded Allergies: No Known Drug Allergies (Unverified , 02/23/17) Home Medications Ibuprofen 600 Mg Tablet, 600 MG PO Q6H PRN for CRAMPS Prescribed by: LARA MILLIGAN on 08/29/17 0956 Patient Home Medication List Home Medication List Reviewed: Yes Review of Systems Constitutional: see HPI; No chills, No fever Skin: see HPI, other (laceration to distal tip of left index finger.) All Other Systems Reviewed Negative Unless Noted: Yes Past Hcuplyy-Okrmyc-Cgoacs Hx Past Med/Social Hx: Reviewed Nursing Past Med/Soc Hx Patient Social History 2nd Hand Smoke Exposure: No Recent Foreign Travel: No Contact w/Someone Who Travel: No Recent Hopitalizations: No Immunizations Up To Date Tetanus Booster (TDap): Less than 5yrs PED Vaccines UTD: Yes Seasonal Allergies Seasonal Allergies: No Past Medical History Surgeries: Yes Respiratory: No Cardiac: No Neurological: No Sexually Transmitted Disease: No HIV/AIDS: No Genitourinary: No Gastrointestinal: No Musculoskeletal: No Endocrine: No HEENT: No Cancer: No Psychosocial: Yes Anxiety Integumentary: No Blood Disorders: No Adverse Reaction/Blood Tranf: No Family Medical History Reviewed Nursing Family Hx Diabetes mellitus 19 FATHER FH: stroke 19 MOTHER Physical Exam Vital Signs Vital Signs - First Documented 07/01/18 18:50 Temp 98.9 Pulse 73 Resp 18 B/P (MAP) 136/88 (104) Pulse Ox 96 O2 Delivery Room Air Capillary Refill : Height, Weight, BMI Height: 5'4.00" Weight: 215lbs. 4.0oz. 97.262478yi; 37.0 BMI Method:Stated General Appearance: WD/WN, no apparent distress Cardiovascular: normal peripheral pulses, regular rate, rhythm, no edema, no gallop, no JVD, no murmur Respiratory: chest non-tender, lungs clear, normal breath sounds, no respiratory distress, no accessory muscle use Hand: Left, laceration (skin avulsion to the distip tip left second finger .5mc by .5mc in diameter causing a skin flap. superficial ) Neurologic/Psychiatric: alert, normal mood/affect, oriented x 3 Skin: normal color, warm/dry, other (as noted above.) Procedures/Interventions Wound Location: Upper Extremities Other Wound Location left second finger distal tip Wound Length (cm): 0.5 Wound's Depth, Shape: superficial, flap Wound Explored: clean Irrigated w/ Saline (ccs): 50 Other Closure Supply: Wound Adhesive Progress Laceration was cleaned and irrigated with normal saline and betasept. Skin glue was applied to the laceration. Finger tourniquet was applied to reduce bleeding while glue dried. Progress/Results/Core Measures Results/Orders Vital Signs/I&O Departure Impression Primary Impression: Avulsion of skin of index finger Disposition: HOME, SELF-CARE Condition: Stable/Unchanged Departure-Patient Inst. Decision time for Depature: 19:12 Referrals: LAZ DENSON MD (PCP) Primary Care Physician SIOMARA SHERIFF APRN (Family) Primary Care Physician Patient Instructions: SKIN AVULSION, Laceration Repair With Glue (DC) Add. Discharge Instructions: Watch for signs of infection such as increased redness, drainage, pain, swelling. What the glue fall off on its own. Try to avoid using soaps, lotions, ointments on the finger. Follow up with primary care provider within 1 week for a recheck. Return back to the emergency room for any worsening symptoms or concerns as needed. MARIAM GALLEGOS Jul 01, 2018 18:59
[2018-07-01 19:30] VITALS: BP 136/88
== END 2018-07-01 19:29 | disposition home or self-care (01) ==
LOC: EDUNIT# 18:47 → ER 18:48
DX: S61.211A Laceration without foreign body of left index finger without damage to nail, initial encounter (principal); F41.9 Anxiety disorder, unspecified; W26.0XXA Contact with knife, initial encounter
CPT/HCPCS: 12001

== ENCOUNTER 2018-10-27 07:37 | Emergency (ER) | payer MEDICAID ==
[~2018-10-27] VITALS: Ht 162.6 cm; Wt 83.9 kg
[2018-10-27 08:25] LABS: BASOPHILS % (AUTO) 1 % (0-10); EOSINOPHILS # (AUTO) 0.1 10^3/uL (0.0-0.3); EOSINOPHILS % (AUTO) 1 % (0-10); HEMATOCRIT 42 % (35-52); HEMOGLOBIN 14.4 G/DL (11.5-16.0); LYMPHOCYTES # (AUTO) 1.9 X 10^3 (1.0-4.0); LYMPHOCYTES % (AUTO) 31 % (12-44); MEAN CORPUSCULAR HEMOGLOBIN 29 PG (25-34); MEAN CORPUSCULAR HGB CONC 34 G/DL (32-36); MEAN CORPUSCULAR VOLUME 86 FL (80-99); MEAN PLATELET VOLUME 9.2 FL (7.4-10.4); MONOCYTES # (AUTO) 0.5 X 10^3 (0.0-1.0); MONOCYTES % (AUTO) 8 % (0-12); NEUTROPHILS # (AUTO) 3.7 X 10^3 (1.8-7.8); NEUTROPHILS % (AUTO) 59 % (42-75); PLATELET COUNT 261 10^3/uL (130-400); RED BLOOD COUNT 4.95 10^6/uL (4.35-5.85); WHITE BLOOD COUNT 6.2 10^3/uL (4.3-11.0)
[2018-10-27 08:26] LABS: BILIRUBIN,URINE NEGATIVE (NEGATIVE); CLARITY,URINE CLEAR; COLOR,URINE YELLOW; GLUCOSE, URINE (UA) NEGATIVE (NEGATIVE); KETONES,URINE NEGATIVE (NEGATIVE); LEUKOCYTE ESTERASE ,URINE 3+ (NEGATIVE); NITRITE,URINE NEGATIVE (NEGATIVE); PH,URINE 5 (5-9); PROTEIN,URINE 1+ (NEGATIVE); UROBILINOGEN,URINE NORMAL (NORMAL)
[2018-10-27 08:32] LABS: BACTERIA,URINE FEW /HPF
--- NOTE | 2018-10-27 10:09 | ED GU-Female ---
General Chief Complaint: -Female Stated Complaint: 10 W OB, BLEEDING Nursing Triage Note: Pt ambulated to rm 9. Pt reports being approximately 10 weeks with LMP 08/17/18. Pt c/o vaginal bleeding that began approximately 4-5 hours after intercourse last night. Pt reports bleedig has "picked up this morning." Pt denies cramping, but c/o nausea. Nursing Sepsis Screen: No Definite Risk Source: patient Exam Limitations: no limitations History of Present Illness Date Seen by Provider: Oct 27, 2018 Time Seen by Provider: 07:39 Initial Comments This 38-year-old woman presents to the emergency room at approximately 10 weeks gestational age by her estimate with vaginal bleeding that started last night. She noticed it on the toilet paper when she went to the bathroom. Bleeding has intensified this morning. LMP was August 17. She is establishing care at [facility]. She has not yet received an ultrasound. She has nausea without vomiting. She denies any vaginal discharge or pain. She has no pelvic pain or cramping. She denies any urinary changes. She does note that she had intercourse 4 or 5 hours before the bleeding started yesterday. She is Rh- and has received RhoGAM injections in the past. Allergies and Home Medications Allergies Coded Allergies: No Known Drug Allergies (Unverified , 02/23/17) Home Medications Cephalexin 500 Mg Capsule, 500 MG PO TID Prescribed by: GARY LYONS on 10/27/18 1019 Ibuprofen 600 Mg Tablet, 600 MG PO Q6H PRN for CRAMPS Prescribed by: LARA SANTOS on 08/29/17 0956 Patient Home Medication List Home Medication List Reviewed: Yes Review of Systems Review of Systems Constitutional: no symptoms reported EENTM: no symptoms reported Respiratory: no symptoms reported Cardiovascular: no symptoms reported Gastrointestinal: no symptoms reported Genitourinary: see HPI : Yes LMP: Aug 17, 2018 Musculoskeletal: no symptoms reported Skin: no symptoms reported Psychiatric/Neurological: No Symptoms Reported Endocrine: No Symptoms Reported Hematologic/Lymphatic: No Symptoms Reported Past Bwdqcba-Htzvvl-Cuvcjx Hx Past Med/Social Hx: Reviewed Nursing Past Med/Soc Hx Patient Social History Alcohol Use: Denies Use Recreational Drug Use: No 2nd Hand Smoke Exposure: No Recent Foreign Travel: No Contact w/Someone Who Travel: No Recent Infectious Disease Expo: No Recent Hopitalizations: No Physical Abuse: No Sexual Abuse: No Immunizations Up To Date Tetanus Booster (TDap): Less than 5yrs PED Vaccines UTD: Yes Seasonal Allergies Seasonal Allergies: No Past Medical History Surgeries: No Respiratory: No Cardiac: No Neurological: No Sexually Transmitted Disease: No HIV/AIDS: No Genitourinary: No Gastrointestinal: No Musculoskeletal: No Endocrine: No HEENT: No Cancer: No Psychosocial: Yes Anxiety Integumentary: No Blood Disorders: No Adverse Reaction/Blood Tranf: No Family Medical History Reviewed Nursing Family Hx Diabetes mellitus 19 FATHER FH: stroke 19 MOTHER Physical Exam Vital Signs Vital Signs - First Documented 10/27/18 08:05 Temp 98.0 Pulse 76 Resp 15 B/P (MAP) 127/76 (93) Pulse Ox 99 O2 Delivery Room Air Capillary Refill : Less Than 3 Seconds Height, Weight, BMI Height: 5'4.00" Weight: 185lbs. 4.0oz. 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, no motor/sensory deficits, alert, normal mood/affect, oriented x 3 Skin: normal color, warm/dry Progress/Results/Core Measures Suspected Sepsis Recent Fever Within 48 Hours: No Infection Criteria Present: None New/Unexplained Altered Menta: No Sepsis Screen: No Definite Risk SIRS Temperature:98.0 Pulse: 76 Respiratory Rate: 15 Laboratory Tests 10/27/18 08:15: White Blood Count 6.2 Blood Pressure 127 /76 Mean: 93 Laboratory Tests 10/27/18 08:15: Platelet Count 261 Results/Orders Lab Results Laboratory Tests Test 10/27/18 07:38 10/27/18 08:08 10/27/18 08:15 Range/Units Lab Scanned Report LAB Reports [id number] Urine Color YELLOW Urine Clarity CLEAR Urine pH 5 5-9 Urine Specific [place] 1.025 H 1.016-1.022 Urine Protein 1+ H NEGATIVE Urine Glucose (UA) NEGATIVE NEGATIVE Urine Ketones NEGATIVE NEGATIVE Urine Nitrite NEGATIVE NEGATIVE Urine Bilirubin NEGATIVE NEGATIVE Urine Urobilinogen NORMAL NORMAL MG/DL Urine Leukocyte Esterase 3+ H NEGATIVE Urine RBC (Auto) 4+ H NEGATIVE Urine RBC NONE /HPF Urine WBC 10-25 H /HPF Urine Squamous Epithelial Cells 5-10 /HPF Urine Crystals NONE /LPF Urine Bacteria FEW H /HPF Urine Casts NONE /LPF Urine Mucus NEGATIVE /LPF Urine Culture Indicated YES White Blood Count 6.2 4.3-11.0 10^3/uL Red Blood Count 4.95 4.35-5.85 10^6/uL Hemoglobin 14.4 11.5-16.0 G/DL Hematocrit 42 35-52 % Mean Corpuscular Volume 86 80-99 FL Mean Corpuscular Hemoglobin 29 25-34 PG Mean Corpuscular Hemoglobin Concent 34 32-36 G/DL Red Cell Distribution Width 13.0 10.0-14.5 % Platelet Count 261 130-400 10^3/uL Mean Platelet Volume 9.2 7.4-10.4 FL Neutrophils (%) (Auto) 59 42-75 % Lymphocytes (%) (Auto) 31 12-44 % Monocytes (%) (Auto) 8 0-12 % Eosinophils (%) (Auto) 1 0-10 % Basophils (%) (Auto) 1 0-10 % Neutrophils # (Auto) 3.7 1.8-7.8 X 10^3 Lymphocytes # (Auto) 1.9 1.0-4.0 X 10^3 Monocytes # (Auto) 0.5 0.0-1.0 X 10^3 Eosinophils # (Auto) 0.1 0.0-0.3 10^3/uL Basophils # (Auto) 0.0 0.0-0.1 10^3/uL Human Chorionic Gonadotropin, Quant 07022 H <5 MIU/ML My Orders Orders - GARY ESCOTO MD Cbc With Automated Diff (10/27/18 07:39) Hcg,Quantitative (10/27/18 07:39) Ua Culture If Indicated (10/27/18 07:39) Urine Culture (10/27/18 08:08) Rh Immune Globulin Rhophylac (10/27/18 10:21) Rhogam Administration (10/27/18 10:21) Rhogam Administration (10/27/18 10:21) Vital Signs/I&O Capillary Refill : Less Than 3 Seconds Blood Pressure Mean: 93 Progress Note : Progress Note Exam, vitals, and labs are unremarkable. Urinary tract infection was identified by urinalysis and treated. HCG level is appropriate for current gestational age. Since patient is stable on workup and is not in any pain, ultrasound can be obtained on an outpatient basis. Dr. Santos was notified and will help facilitate outpatient follow-up. Departure Impression Primary Impression: Vaginal bleeding during Additional Impression: Urinary tract infection Qualified Codes: N39.0 - Urinary tract infection, site not specified Disposition: HOME, SELF-CARE Condition: Improved Departure-Patient Inst. Decision time for Depature: 09:30 Referrals: LAZ DENSON MD (PCP) Primary Care Physician SIOMARA SHERIFF APRN (Family) Primary Care Physician Patient Instructions: Urinary Tract Infection, Adult (DC) Add. Discharge Instructions: Follow-up with your obstetrical provider soon as possible. Call on Sunday to arrange for an ultrasound. Return to emergency room if you have worsening symptoms including development of fever, pain or cramping, or significant increase in bleeding. Vaginal rest including no intercourse, tampons, etc. until cleared by your doctor. Complete your antibiotics as prescribed. Drink plenty of clear liquids. Follow -up on your urine culture results with your doctor early this week. All discharge instructions reviewed with patient and/or family. Voiced understanding. Scripts Cephalexin (Keflex) 500 Mg Capsule 500 MG PO TID, #20 CAP Prov: GARY ESCOTO MD 10/27/18 Copy Copies To 1: LAZ DENSON MD, JOSHUA T MD Oct 27, 2018 10:09
[2018-10-27] MEDS ORDERED: CEPH-507 PO (10:19)
[2018-10-27 10:51] VITALS: BP 113/80
[2018-10-27 10:54] VITALS: BP 113/80
== END 2018-10-27 10:54 | disposition home or self-care (01) ==
LOC: EDUNIT# 07:37 → ER 07:38
DX: O20.9 Hemorrhage in early pregnancy, unspecified (principal); O23.41 Unspecified infection of urinary tract in pregnancy, first trimester; O99.341 Other mental disorders complicating pregnancy, first trimester; F41.9 Anxiety disorder, unspecified; Z3A.10 10 weeks gestation of pregnancy
CPT/HCPCS: 36415; 81000; 84702; 85025; 87088

== ENCOUNTER 2018-11-01 20:13 | Emergency (ER) | payer MEDICAID | END 2018-11-01 21:58 | disposition home or self-care (01) | LOC: ER 20:13 ==

== ENCOUNTER 2018-11-05 02:03 | Day surgery (SDC) | payer MEDICAID ==
[~2018-11-05] VITALS: Ht 162.6 cm; Wt 85.3 kg
[~2018-11-05 02:03] MED LIST changes: +CEPH-507 PO; +METR-197 PO
[2018-11-05 02:56] LABS: BASOPHILS % (AUTO) 0 % (0-10); EOSINOPHILS # (AUTO) 0.1 10^3/uL (0.0-0.3); EOSINOPHILS % (AUTO) 1 % (0-10); HEMATOCRIT 41 % (35-52); HEMOGLOBIN 14.8 G/DL (11.5-16.0); LYMPHOCYTES # (AUTO) 2.3 X 10^3 (1.0-4.0); LYMPHOCYTES % (AUTO) 20 % (12-44); MEAN CORPUSCULAR HEMOGLOBIN 30 PG (25-34); MEAN CORPUSCULAR HGB CONC 36 G/DL (32-36); MEAN CORPUSCULAR VOLUME 84 FL (80-99); MEAN PLATELET VOLUME 9.5 FL (7.4-10.4); MONOCYTES # (AUTO) 0.8 X 10^3 (0.0-1.0); MONOCYTES % (AUTO) 7 % (0-12); NEUTROPHILS # (AUTO) 8.5 X 10^3 (1.8-7.8); NEUTROPHILS % (AUTO) 73 % (42-75); PLATELET COUNT 328 10^3/uL (130-400); RED BLOOD COUNT 4.92 10^6/uL (4.35-5.85); RED CELL DISTRIBUTION WIDTH 13.1 % (10.0-14.5); WHITE BLOOD COUNT 11.7 10^3/uL (4.3-11.0)
[2018-11-05 03:07] LABS: BUN/CREATININE RATIO 13; CALCIUM 9.1 MG/DL (8.5-10.1); CARBON DIOXIDE 18 MMOL/L (21-32); CHLORIDE 107 MMOL/L (98-107); CREATININE SERUM 0.69 MG/DL (0.60-1.30); GFR ESTIMATED > 60; GLUCOSE 111 MG/DL (70-105); POTASSIUM 3.8 MMOL/L (3.6-5.0); SODIUM 137 MMOL/L (135-145)
[2018-11-05] MEDS ORDERED: fentaNYL INJECTION 100 MCG/2 ML AMP IVP STA ×2 (03:12→03:31)
[2018-11-05] MEDS ORDERED: NS IV 1000 ML 1,000 ML IV ONE (03:12)
--- NOTE | 2018-11-05 03:30 | NUR ---
UNABLE TO OBTAIN ORTHOSTATIC VITALS @ THIS TIME. TREMORS NOTED TO BILAT LOWER EXTREMITIES. PT REPORTS SHE FEELS THOUGH SHE IS BLEEDING TOO HEAVILY TO STAND @ THIS TIME.
--- NOTE | 2018-11-05 04:45 | NUR ---
DR. YANCEY IN ROOM VISITNG WITH PT REGARDING DNC PROCEDURE.
--- NOTE | 2018-11-05 05:00 | NUR ---
DNC SURGICAL CONSENT SIGNED BY PT. A&[id number].
--- NOTE | 2018-11-05 05:11 | ED GU-Female ---
General Chief Complaint: -Female Stated Complaint: 8 WKS PREG POSS MISCARRIAGE History of Present Illness Date Seen by Provider: Nov 05, 2018 Time Seen by Provider: 05:00 Initial Comments Ms. Luna presented to the ED with heavy vaginal bleeding and cramping while . Timing/Duration: other (Started 2 days ago, but has gotten progressively worse) Severity/Quality: severe, cramping, throbbing Location: suprapubic Sexual [place] History: less than 2 months ago, single partner Allergies and Home Medications Allergies Coded Allergies: No Known Drug Allergies (Unverified , 02/23/17) Home Medications Cephalexin 500 Mg Capsule, 500 MG PO TID Prescribed by: GARY LYONS on 10/27/18 1019 Doxycycline Hyclate 100 Mg Tablet, 100 MG PO Q12H Prescribed by: LUKAS CHILDERS on 11/05/18812 Ibuprofen 800 Mg Tablet, 800 MG PO Q8H PRN for PAIN Prescribed by: LUKAS CHILDERS on 11/05/18812 Misoprostol 200 Mcg Tablet, 200 MCG PO Q8H Prescribed by: LUKAS CHILDERS on 11/05/18812 Oxycodone HCl/Acetaminophen 1 Each Tablet, 1 EACH PO Q6H PRN for PAIN-MODERATE Prescribed by: LUKAS CHILDERS on 11/05/18812 Patient Home Medication List Home Medication List Reviewed: Yes Review of Systems Review of Systems Constitutional: see HPI EENTM: no symptoms reported Cardiovascular: other (Dizziness after losing blood) Genitourinary: other (Cramping with bleeding while ) : Yes Expected Date of Delivery: Nov 04, 2018 LMP: Oct 29, 2018 Musculoskeletal: no symptoms reported Skin: no symptoms reported Psychiatric/Neurological: No Symptoms Reported Endocrine: No Symptoms Reported Hematologic/Lymphatic: No Symptoms Reported All Other Systemes Reviewed Negative Unless Noted: Yes Past Otskzmd-Lenfly-Uevtwx Hx Patient Social History Alcohol Use: Denies Use Recreational Drug Use: No Smoking Status: Light Tobacco Smoker (2-3 cigareetes per day) 2nd Hand Smoke Exposure: No Recent Foreign Travel: No Contact w/Someone Who Travel: No Recent Hopitalizations: No Physical Abuse: No Sexual Abuse: No Mistreated: No Fear: No Immunizations Up To Date Tetanus Booster (TDap): Less than 5yrs PED Vaccines UTD: Yes Seasonal Allergies Seasonal Allergies: No Past Medical History Surgeries: Yes Appendectomy Respiratory: No Cardiac: No Neurological: No Sexually Transmitted Disease: No HIV/AIDS: No Genitourinary: No Gastrointestinal: No Musculoskeletal: No Endocrine: Yes Diabetes, Non-Insulin dep (States that she is a "borderline diabetic", not taking medication) HEENT: No Cancer: No Psychosocial: Yes Anxiety Integumentary: No Blood Disorders: No Adverse Reaction/Blood Tranf: No Family Medical History Diabetes mellitus 19 FATHER FH: stroke 19 MOTHER Physical Exam Vital Signs Vital Signs - First Documented 11/05/18 02:20 Temp 99.2 Pulse 74 Resp 18 B/P (MAP) 128/88 (101) Pulse Ox 99 O2 Delivery Room Air Capillary Refill : Height, Weight, BMI Height: 5'2.00" Weight: 185lbs. 0oz. 83.094360xx; 37.0 BMI Method:Stated General Appearance: mild distress HEENT: PERRL/EOMI, normal ENT inspection, TMs normal, pharynx normal Neck: non-tender, full range of motion, supple, normal inspection Cardiovascular: normal peripheral pulses, regular rate, rhythm, no edema, no gallop, no JVD, no murmur Respiratory: chest non-tender, lungs clear, normal breath sounds, no respiratory distress, no accessory muscle use, respiratory distress Gastrointestinal: normal bowel sounds, non tender, soft, no organomegaly, no pulsatile mass, abnormal bowel sounds Genital/Rectal: other (Vaginal bleeding with cramping) Rectal: deferred Pelvic: vaginal bleeding (Heavy vaginal bleeding with cramping) 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 Referrals: LAZ DENSON MD (PCP) Primary Care Physician SIOMARA SHERIFF APRN (Family) Primary Care Physician Scripts Doxycycline Hyclate (Doxycycline Hyclate) 100 Mg Tablet 100 MG PO Q12H, #14 TAB Prov: CARLOS YANCEY DO 11/05/18 Ibuprofen (Ibuprofen) 800 Mg Tablet 800 MG PO Q8H PRN for PAIN, #30 TAB 0 Refills Prov: CARLOS YANCEY DO 11/05/18 Oxycodone HCl/Acetaminophen (Percocet 5-325 mg Tablet) 1 Each Tablet 1 EACH PO Q6H PRN for PAIN-MODERATE MDD 6, #20 TAB 0 Refills Prov: CARLOS YANCEY DO 11/05/18 Misoprostol (Cytotec) 200 Mcg Tablet 200 MCG PO Q8H for 3 Days, #9 TAB Prov: CARLOS YANCEY DO 11/05/18 CARLOS YANCEY DO Nov 05, 2018 05:11
[2018-11-05] MEDS ORDERED: proPOfol 200 MG/20 ML (DIPRIVAN) VIAL IV ONE (05:29)
[2018-11-05] MEDS ORDERED: OXYTOCIN (PITOCIN) 10 UNIT/ML VIAL ONE ×2 (05:29→06:08)
[2018-11-05] MEDS ORDERED: LIDOCAINE PF 2% 5 ML (XYLOCAINE) VIAL ONE (05:29)
[2018-11-05] MEDS ORDERED: fentaNYL INJECTION 100 MCG/2 ML AMP ONE (05:29)
[2018-11-05] MEDS ORDERED: SEVOFLURANE (ULTANE) 15 ML INHAL SOLN ONE ×3 (05:29→06:14)
[2018-11-05] MEDS ORDERED: DEXAMETHASONE 10 MG/ML (DECADRON) 1 ML VIAL ONE (05:29)
[2018-11-05] MEDS ORDERED: MIDAZOLAM 2 MG/2 ML (VERSED) VIAL ONE (05:31)
--- NOTE | 2018-11-05 05:40 | NUR ---
SURGICAL TEAM IN ROOM DISCUSSING DNC PROCEDURE. REPORT GIVEN TO CARLOS STILES.
[2018-11-05] MEDS: LACTATED RINGERS 1,000 ML IV PRN ×2 (05:53→06:39)
--- NOTE | 2018-11-05 06:39 | Operative Report ---
Operative Report Date of Procedure/Surgery Nov 04, 2018 Surgeon (s) CARLOS YANCEY DO Qi Specialist (s): None Post-Operative Diagnosis Incomplete Hemorrhage Severe Pelvic Pain Procedure Performed Suction D & C Description of Procedure Anesthesia Type: MAC Estimated blood loss (mL): 50 ml Specimen(s) collected/removed Products of conception Packing: None Description of the Procedure Ms. Luna was informed of the her procedure along with risks and benefits. Informed consent was obtained. She was taken to the Operating Room with IV fluids running. Once in the Operating Room anesthesia was administered without difficulty. She was placed in the dorsal lithotomy position, prepped and draped in the normal sterile fashion. Her bladder was drained of all urinary contents. She was sounded to 5.5 inches. Then, using the largest dilator (her cervix was open), it was passed through the internal os without difficulty. Utilizing a 11 mm curved suction curette, all intrauterine contents was removed without difficulty. A large sharp curette was introduced within the intrauterine cavity, curettage was performed until a gritty texture was noted. The suction curette was reintroduced into the intrauterine cavity to remove any remaining blood clots or tissue. Ms. Luna's uterine was reduced to half the starting size and minimal bleeding from the os. Sponge, needles, and instrument counts were correct x 3. Ms. Luna was taken to the recovery room in good and stable condition. Findings of the Procedure Uterus was noted to have blood clot and tissue at the external os at the start of the procedure. She sounded to 5.5 inches. Moderate amount of tissue was removed from the intrauterine cavity. Allergies and Home Medications Allergies Coded Allergies: No Known Drug Allergies (Unverified , 02/23/17) Home Medications Cephalexin 500 Mg Capsule, 500 MG PO TID Prescribed by: GARY LYONS on 10/27/18 1019 Doxycycline Hyclate 100 Mg Tablet, 100 MG PO Q12H Prescribed by: LUKAS CHILDERS on 11/05/18812 Ibuprofen 800 Mg Tablet, 800 MG PO Q8H PRN for PAIN Prescribed by: LUKAS CHILDERS on 11/05/18812 Misoprostol 200 Mcg Tablet, 200 MCG PO Q8H Prescribed by: LUKAS CHILDERS on 11/05/18812 Oxycodone HCl/Acetaminophen 1 Each Tablet, 1 EACH PO Q6H PRN for PAIN-MODERATE Prescribed by: LUKAS CHILDERS on 11/05/18 0813 Patient Home Medication List Home Medication List Reviewed: Yes CARLOS YANCEY DO Nov 05, 2018 06:39
[2018-11-05 07:21] VITALS: BP 118/73
--- NOTE | 2018-11-05 07:27 | Anesthesia-General Post-Op ---
General Patient Condition Mental Status/LOC: Same as Preop Cardiovascular: Satisfactory Nausea/Vomiting: Absent Respiratory: Satisfactory Pain: Controlled Complications: Absent Post Op Complications Complications None Follow Up Care/Instructions Patient Instructions None needed. Anesthesia/Patient Condition Patient Condition Patient is doing well, no complaints, stable vital signs, no apparent adverse anesthesia problems. No complications reported per nursing. SIOBHAN HUGHES CRNA Nov 05, 2018 07:27
[2018-11-05 07:55] VITALS: BP 121/70
--- NOTE | 2018-11-05 08:10 | NUR ---
THIS RN PHONED DR. GRAY TO INFORM DISCHARGE WASN'T DONE. DR. GRAY GAVE TELEPHONE ORDER TO FOLLOW UP IN [address] DENSON, NO DOUCHING OR ANYTHING IN VAGINA UNTIL PATIENT SEES DR. DENSON, LIGHT ACTIVITIES, D/C'D IBUPROFEN AND FLAGYL HOME MEDICATIONS AND CONTINUED KEFLEX.
[2018-11-05] MEDS ORDERED: MISO200T PO (08:13)
[2018-11-05] MEDS ORDERED: DOXY100T2 PO (08:13)
[2018-11-05] MEDS ORDERED: OXYC1TAB87 PO (08:13)
[2018-11-05] MEDS ORDERED: IBUP-1780 PO (08:13)
[2018-11-05 08:21] VITALS: BP 116/71
[2018-11-05 08:45] VITALS: BP 116/71
== END 2018-11-05 08:45 | disposition home or self-care (01) ==
LOC: EDUNIT# 02:03 → ER 02:04 → SDC 05:41
PROVIDERS: ATTEND Obstetrics & Gynecology
DX: O03.1 Delayed or excessive hemorrhage following incomplete spontaneous abortion (principal); R73.03 Prediabetes; F17.210 Nicotine dependence, cigarettes, uncomplicated
CPT/HCPCS: 36415; 80048; 84702; 85025; 86900; 86901; 88305; 96361; 96374

== ENCOUNTER 2019-11-08 19:03 | Emergency (ER) | payer MEDICAID ==
[~2019-11-08] VITALS: Ht 162.6 cm; Wt 85.7 kg
[~2019-11-08 19:03] MED LIST changes: +DOXY100T2 PO; +IBUP-1780 PO; +METR-145 PO; -METR-197 PO; +MISO200T PO; +OXYC1TAB87 PO
[2019-11-08] MEDS ORDERED: NS IV 1000 ML 1,000 ML IV STA (19:54)
[2019-11-08 19:55] LABS: BASOPHILS % (AUTO) 0 % (0-10); EOSINOPHILS # (AUTO) 0.1 10^3/uL (0.0-0.3); EOSINOPHILS % (AUTO) 1 % (0-10); HEMATOCRIT 44 % (35-52); HEMOGLOBIN 15.3 G/DL (11.5-16.0); LYMPHOCYTES # (AUTO) 1.6 X 10^3 (1.0-4.0); LYMPHOCYTES % (AUTO) 20 % (12-44); MEAN CORPUSCULAR HEMOGLOBIN 30 PG (25-34); MEAN CORPUSCULAR HGB CONC 35 G/DL (32-36); MEAN CORPUSCULAR VOLUME 85 FL (80-99); MEAN PLATELET VOLUME 9.4 FL (7.4-10.4); MONOCYTES # (AUTO) 0.6 X 10^3 (0.0-1.0); MONOCYTES % (AUTO) 7 % (0-12); NEUTROPHILS # (AUTO) 5.6 X 10^3 (1.8-7.8); NEUTROPHILS % (AUTO) 71 % (42-75); PLATELET COUNT 265 10^3/uL (130-400); RED CELL DISTRIBUTION WIDTH 12.8 % (10.0-14.5); WHITE BLOOD COUNT 7.8 10^3/uL (4.3-11.0)
--- NOTE | 2019-11-08 19:57 | ED GI ---
General Chief Complaint: Dizziness/Syncope Stated Complaint: BLACK STOOLS, ABD PAIN, DIZZY Nursing Triage Note: PT AMBULATE TO TRIAGE WITH C/O DIZZYNESS, DARK STOOLS, DIARRHEA, GENERALIZED ACHES. PT STATES SHE HAS TAKEN TYLENOL AT APPROX 1600 TODAY AND ZOFRAN AT 1300. PT STATES SHE WAS SEEN IN THE CLINIC TODAY FOR THESE SYMPTOMS. PT REPORTS PROVIDER DID NOT ORDER TESTS AT THAT TIME. PT REPORTS BP THIS AM AT WORK OF 105/102. Sepsis Screen: No Definite Risk Source of Information: Patient Exam Limitations: No Limitations History of Present Illness Date Seen by Provider: Nov 08, 2019 Time Seen by Provider: 19:55 Initial Comments Patient presents with complaints of some generalized body aches, malaise, dizziness, 7 diarrhea that is dark, some nausea vomiting. Patient reports that the symptoms started this morning. That she was seen in the clinic earlier today around noon and was given nausea medication in the clinic. Patient reports she comes in because she continues to feel bad. She does report that the diarrhea is not as bad as it was earlier today and at the nausea slightly better. Patient denies any cough or fever. She does not have any abdominal pain but just some abdominal cramping. Allergies and Home Medications Allergies Coded Allergies: No Known Drug Allergies (Unverified , 02/23/17) Home Medications Cephalexin 500 Mg Capsule, 500 MG PO TID Prescribed by: GARY LYONS on 10/27/18 1019 Doxycycline Hyclate 100 Mg Tablet, 100 MG PO Q12H Prescribed by: LUKAS CHILDERS on 11/05/18812 Ibuprofen 800 Mg Tablet, 800 MG PO Q8H PRN for PAIN Prescribed by: LUKAS CHILDERS on 11/05/18812 Misoprostol 200 Mcg Tablet, 200 MCG PO Q8H Prescribed by: LUKAS CHILDERS on 11/05/18812 Oxycodone HCl/Acetaminophen 1 Each Tablet, 1 EACH PO Q6H PRN for PAIN-MODERATE Prescribed by: LUKAS CHILDERS on 11/05/18812 Patient Home Medication List Home Medication List Reviewed: Yes Review of Systems Review of Systems Constitutional: No chills; dizziness; No fever; malaise Respiratory: Denies Cough, Denies Shortness of Air Cardiovascular: Denies Chest Pain Gastrointestinal: Denies Abdomen Distended, Denies Abdominal Pain, Denies Blood Streaked Stools; Diarrhea, Nausea, Vomiting Genitourinary: No Symptoms Reported Musculoskeletal: see HPI Skin: no symptoms reported Past Beykebq-Gkqwxj-Heynrh Hx Past Med/Social Hx: Reviewed Nursing Past Med/Soc Hx Patient Social History Alcohol Use: Denies Use Recreational Drug Use: No Smoking Status: Former Smoker 2nd Hand Smoke Exposure: No Recent Foreign Travel: No Contact w/Someone Who Travel: No Recent Infectious Disease Expo: No Recent Hopitalizations: No Physical Abuse: No Sexual Abuse: No Mistreated: No Fear: No Immunizations Up To Date Tetanus Booster (TDap): Less than 5yrs PED Vaccines UTD: Yes Seasonal Allergies Seasonal Allergies: No Past Medical History Surgeries: Yes Appendectomy Respiratory: No Cardiac: No Neurological: No Reproductive Disorders: No Female Reproductive Disorders: Denies Sexually Transmitted Disease: No HIV/AIDS: No Genitourinary: No Gastrointestinal: No Musculoskeletal: Yes (CARPUL TUNNAL) Endocrine: Yes (GESTATION DIABETES) Diabetes, Non-Insulin dep HEENT: No Cancer: No Psychosocial: Yes Anxiety Integumentary: No Blood Disorders: No Adverse Reaction/Blood Tranf: No Family Medical History Diabetes mellitus 19 FATHER FH: stroke 19 MOTHER Physical Exam Vital Signs Vital Signs - First Documented 11/08/19 19:16 Temp 36.7 Pulse 90 Resp 17 B/P (MAP) 124/89 (101) O2 Delivery Room Air Capillary Refill : Less Than 3 Seconds Height/Weight/BMI Height: 5'4.00" Weight: 188lbs. 0oz. 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, no motor/sensory deficits, alert, normal mood/affect, oriented x 3 Skin: normal color, warm/dry Progress/Results/Core Measures Results/Orders Lab Results Laboratory Tests Test 11/08/19 19:44 Range/Units White Blood Count 7.8 4.3-11.0 10^3/uL Red Blood Count 5.16 4.35-5.85 10^6/uL Hemoglobin 15.3 11.5-16.0 G/DL Hematocrit 44 35-52 % Mean Corpuscular Volume 85 80-99 FL Mean Corpuscular Hemoglobin 30 25-34 PG Mean Corpuscular Hemoglobin Concent 35 32-36 G/DL Red Cell Distribution Width 12.8 10.0-14.5 % Platelet Count 265 130-400 10^3/uL Mean Platelet Volume 9.4 7.4-10.4 FL Neutrophils (%) (Auto) 71 42-75 % Lymphocytes (%) (Auto) 20 12-44 % Monocytes (%) (Auto) 7 0-12 % Eosinophils (%) (Auto) 1 0-10 % Basophils (%) (Auto) 0 0-10 % Neutrophils # (Auto) 5.6 1.8-7.8 X 10^3 Lymphocytes # (Auto) 1.6 1.0-4.0 X 10^3 Monocytes # (Auto) 0.6 0.0-1.0 X 10^3 Eosinophils # (Auto) 0.1 0.0-0.3 10^3/uL Basophils # (Auto) 0.0 0.0-0.1 10^3/uL Sodium Level 139 135-145 MMOL/L Potassium Level 3.5 L 3.6-5.0 MMOL/L Chloride Level 108 H 98-107 MMOL/L Carbon Dioxide Level 19 L 21-32 MMOL/L Anion Gap 12 5-14 MMOL/L Blood Urea Nitrogen 10 7-18 MG/DL Creatinine 0.76 0.60-1.30 MG/DL Estimat Glomerular Filtration Rate > 60 BUN/Creatinine Ratio 13 Glucose Level 98 70-105 MG/DL Calcium Level 9.0 8.5-10.1 MG/DL Corrected Calcium 8.8 8.5-10.1 MG/DL Total Bilirubin 0.4 0.1-1.0 MG/DL Aspartate Amino Transf (AST/SGOT) 15 5-34 U/L Alanine Aminotransferase (ALT/SGPT) 21 0-55 U/L Alkaline Phosphatase 83 40-136 U/L Troponin I < 0.028 <0.028 NG/ML Total Protein 7.2 6.4-8.2 GM/DL Albumin 4.3 3.2-4.5 GM/DL Lipase 23 8-78 U/L Micro Results Microbiology 11/08/19 Influenza Types A,B Antigen (ALFREDITO) - Final, Complete My Orders Orders - SHARMA,NIGHAT L DO Cbc With Automated Diff (11/08/19 19:29) Comprehensive Metabolic Panel (11/08/19 19:29) Lipase (11/08/19 19:29) Troponin I (11/08/19 19:29) Influenza A And B Antigens (11/08/19 19:54) Ondansetron Injection (Zofran Injectio (11/08/19 20:00) Ns Iv 1000 Ml (Sodium Chloride 0.9%) (11/08/19 19:54) Abdomen/Kub 1view (11/08/19 20:16) Medications Given in ED Current Medications Medications Dose Ordered Sig/Margot Route Start Time Stop Time Status Last Admin Dose Admin Ondansetron HCl 4 mg ONCE ONCE IVP 11/08/19 20:00 11/08/19 20:01 DC 11/08/19 20:09 4 MG Vital Signs/I&O 11/08/19 19:16 Temp 36.7 Pulse 90 Resp 17 B/P (MAP) 124/89 (101) O2 Delivery Room Air Blood Pressure Mean: 101 Departure Impression Primary Impression: Viral gastroenteritis Disposition: HOME, SELF-CARE Condition: Stable Departure-Patient Inst. Referrals: LAZ DENSON MD (PCP) Primary Care Physician SIOMARA SHERIFF APRN (Family) Primary Care Physician Patient Instructions: Viral Gastroenteritis Add. Discharge Instructions: Emergency department focuses on treating and ruling out life-threatening dis eases. Whenever possible, a diagnosis is given. However, most patients are given an impression based on their history, physical exam, and workup during your brief time in the ER. Information about probable diagnosis and other educational material has been provided. Please take the time to read and understand this information. It is very important that you follow up with a physician as discussed during the visit today. Failure to adhere to your follow-up instructions may lead to severe disability, injury, or so please make sure to keep your appointments or obtain one as requested. Please keep in mind the emergency department is not designed to your primary care or "family doctor" and nonurgent issues are best evaluated by an outpatient physician All discharge instructions reviewed with patient and/or family. Voiced understanding. Scripts Ondansetron (Ondansetron Odt) 4 Mg Tab.rapdis 4 MG PO Q6H PRN for NAUSEA/VOMITING, #20 TAB Prov: NIGHAT SHARMA DO 11/08/19 NIGHAT SHARMA DO Nov 08, 2019 19:57
[2019-11-08] MEDS ORDERED: ONDANSETRON 4 MG/2 ML (SDV) Z0FRAN IVP ONE (20:00)
[2019-11-08 20:16] LABS: ALANINE AMINOTRANSFERASE 21 U/L (0-55); ALBUMIN 4.3 GM/DL (3.2-4.5); ALKALINE PHOSPHATASE 83 U/L (40-136); BILIRUBIN,TOTAL 0.4 MG/DL (0.1-1.0); BUN/CREATININE RATIO 13; CARBON DIOXIDE 19 MMOL/L (21-32); CHLORIDE 108 MMOL/L (98-107); CREATININE SERUM 0.76 MG/DL (0.60-1.30); GFR ESTIMATED > 60; GLUCOSE 98 MG/DL (70-105); LIPASE 23 U/L (8-78); POTASSIUM 3.5 MMOL/L (3.6-5.0); SODIUM 139 MMOL/L (135-145); TOTAL PROTEIN 7.2 GM/DL (6.4-8.2)
--- NOTE | 2019-11-08 20:42 | Diagnostic Imaging Report ---
INDICATION: Nausea, vomiting, diarrhea. Dizziness. COMPARISON: None FINDINGS: Single supine radiographic view of the abdomen was obtained and demonstrates nondistended loops of small bowel. There is no large collection of free peritoneal air. Mild air and stool are seen scattered throughout the colon. Indwelling intrauterine contraceptive device is noted. No unexpected extraosseous calcifications or radiopaque foreign bodies are seen. Bony structures show no gross acute abnormalities. IMPRESSION: 1. Nonobstructed small bowel gas pattern. Dictated by: Dictated on workstation # [id number]
[2019-11-08] MEDS ORDERED: ONDA4TAB11 PO (20:55)
[2019-11-08 21:10] VITALS: BP 112/74
== END 2019-11-08 21:10 | disposition home or self-care (01) ==
LOC: EDUNIT# 19:03 → ER 19:05
DX: A08.4 Viral intestinal infection, unspecified (principal); E11.9 Type 2 diabetes mellitus without complications; F41.9 Anxiety disorder, unspecified; Z87.891 Personal history of nicotine dependence; Z90.49 Acquired absence of other specified parts of digestive tract; Z82.49 Family history of ischemic heart disease and other diseases of the circulatory system
CPT/HCPCS: 36415; 74018; 80053; 83690; 84484; 85025; 87804

== ENCOUNTER 2020-06-14 19:26 | Emergency (ER) | payer MEDICAID ==
[~2020-06-14] VITALS: Ht 162.5 cm; Wt 85.7 kg
[~2020-06-14 19:26] MED LIST changes: +ONDA4TAB11 PO
[2020-06-14 19:47] VITALS: BP 141/90
[2020-06-14] MEDS ORDERED: LIDOCAINE 1% INJ 20 ML 20 ML VIAL INJ ONE (20:00)
[2020-06-14] MEDS ORDERED: DOXY100T2 PO (20:00)
[2020-06-14] MEDS ORDERED: cefTRIAXone 1,000 MG/2.86 ml vial (IM ONLY) IM SCH (20:00)
[2020-06-14] MEDS ORDERED: DOXYCYCLINE 100 MG (VIBRAMYCIN) TABLET PO SCH (20:00)
--- NOTE | 2020-06-14 20:01 | ED Integumentary General ---
General Chief Complaint: Skin/Wound Problems Stated Complaint: SORE ON ABD Source: patient Exam Limitations: no limitations History of Present Illness Date Seen by Provider: Jun 14, 2020 Time Seen by Provider: 19:57 Initial Comments To ER with a sore on her abdomen first noticed yesterday, she is concerned it might be a spider bite. No fever no chills no nausea no vomiting no dark urine. Timing/Duration: yesterday, getting worse Severity: moderate Location: torso Associated Symptoms: denies symptoms Allergies and Home Medications Allergies Coded Allergies: No Known Drug Allergies (Unverified , 02/23/17) Home Medications Cephalexin 500 Mg Capsule, 500 MG PO TID Prescribed by: GARY LYONS on 10/27/18 1019 Doxycycline Hyclate 100 Mg Tablet, 100 MG PO Q12H Prescribed by: LUKAS CHILDERS on 11/05/18 08 Ibuprofen 800 Mg Tablet, 800 MG PO Q8H PRN for PAIN Prescribed by: LUAKS CHILDERS on 11/05/18812 Misoprostol 200 Mcg Tablet, 200 MCG PO Q8H Prescribed by: LUKAS CHILDERS on 11/05/18812 Ondansetron 4 Mg Tab.rapdis, 4 MG PO Q6H PRN for NAUSEA/VOMITING Prescribed by: NIGHAT SHARMA on 11/08/192054 Oxycodone HCl/Acetaminophen 1 Each Tablet, 1 EACH PO Q6H PRN for PAIN-MODERATE Prescribed by: LUKAS CHILDERS on 11/05/18812 Patient Home Medication List Home Medication List Reviewed: Yes Review of Systems Review of Systems Constitutional: see HPI EENTM: see HPI Respiratory: no symptoms reported Cardiovascular: no symptoms reported Genitourinary: no symptoms reported Musculoskeletal: no symptoms reported Skin: see HPI Psychiatric/Neurological: No Symptoms Reported Endocrine: No Symptoms Reported Hematologic/Lymphatic: No Symptoms Reported Past Rvftstq-Uabgiu-Obwkja Hx Patient Social History 2nd Hand Smoke Exposure: No Recent Foreign Travel: No Contact w/Someone Who Travel: No Recent Hopitalizations: No Immunizations Up To Date Tetanus Booster (TDap): Less than 5yrs PED Vaccines UTD: Yes Seasonal Allergies Seasonal Allergies: No Past Medical History Surgeries: Yes Appendectomy Respiratory: No Cardiac: No Neurological: No Reproductive Disorders: No Female Reproductive Disorders: Denies Sexually Transmitted Disease: No HIV/AIDS: No Genitourinary: No Gastrointestinal: No Musculoskeletal: Yes (CARPUL TUNNAL) Endocrine: Yes (GESTATION DIABETES) Diabetes, Non-Insulin dep HEENT: No Cancer: No Psychosocial: Yes Anxiety Integumentary: No Blood Disorders: No Adverse Reaction/Blood Tranf: No Family Medical History Diabetes mellitus 19 FATHER FH: stroke 19 MOTHER Physical Exam Vital Signs Capillary Refill : General Appearance: WD/WN, no apparent distress Respiratory: no respiratory distress, no accessory muscle use Gastrointestinal: normal bowel sounds, non tender, soft Extremities: normal range of motion, non-tender Neurologic/Psychiatric: alert, normal mood/affect, oriented x 3 Skin: normal color, warm/dry Skin Problem Location: torso Skin Problem Character: abscess, other (palm sized area of well demarcated of erythema without crepitus or central necrosis or central fluctuance.) Progress/Results/Core Measures Results/Orders My Orders Orders - YESSI CUMMINGS APRN Ceftriaxone For Im Use (Rocephin For Im (06/14/20 20:00) Lidocaine 1% Inj 20 Ml (Xylocaine 1% Inj (06/14/20 20:00) Doxycycline Hyclate Tablet (Vibramycin T (06/14/20 20:00) Departure Impression Primary Impression: Cellulitis Qualified Codes: L03.311 - Cellulitis of abdominal wall Disposition: 01 HOME, SELF-CARE Condition: Stable Departure-Patient Inst. Decision time for Depature: 19:59 Referrals: LAZ DENSON MD (PCP/Family) Primary Care Physician Patient Instructions: Cellulitis (Skin Infection), Adult (DC) Add. Discharge Instructions: 1. Follow-up with your doctor later this week for recheck. Return to ER for any worsening symptoms or other concerns. Antibiotics as directed. All discharge instructions reviewed with patient and/or family. Voiced understanding. Scripts Doxycycline Hyclate (Doxycycline Hyclate) 100 Mg Tablet 100 MG PO BID, #20 TAB 0 Refills Prov: YESSI CUMMINGS APRN 06/14/20 YESSI CUMMINGS APRN Jun 14, 2020 20:00
== END 2020-06-14 20:22 | disposition home or self-care (01) ==
LOC: EDUNIT# 19:26 → ER 19:28
DX: L03.311 Cellulitis of abdominal wall (principal)
CPT/HCPCS: 99284

== ENCOUNTER 2022-08-31 11:12 | Emergency (ER) | payer MEDICAID, OTHER ==
[~2022-08-31] VITALS: Ht 157 cm; Wt 83.0 kg
--- NOTE | 2022-08-31 11:37 | ED Chest Pain ---
General Chief Complaint: Chest Pain Stated Complaint: CHEST PAINS/ARM PAINS Nursing Triage Note: ARRIVED VIA POV FROM [facility]. PT STATES SHE STARTED HAVING BACK PAIN, CHEST PAIN, RIGHT LEG SWELLING, LEFT RM TIGHTNESS, AND NAUSEA. PT STATES SHE HAD AN ABNORMAL EKG AT [facility] BUT DID NOT BRING IT WITH HER. History of Present Illness Date Seen by Provider: Aug 31, 2022 Time Seen by Provider: 11:36 Initial Comments Patient presents to the emergency department from [facility] clinic for back pain, chest pain, right leg swelling, left arm tightness and nausea. Was told that she had an abnormal EKG done at [facility] but does not have that EKG. Reports that she is not having much pain at this time. Denies history of cardiac issues that she is aware of. Timing/Duration: resolved prior to arrival Severity/Quality: mild Location: substernal, shoulder, back Radiation: shoulders, back Activities at Onset: none Modifying Factors: improves with rest ASA po SIZER HAND: No NTG SL SIZER HAND: No Associated Symptoms: No abdominal pain; back pain; No diaphoresis, No dizziness, No fatigue, No headache, No heartburn, No nausea/vomiting, No syncope, No weakness Allergies and Home Medications Allergies Coded Allergies: No Known Drug Allergies (Unverified , 02/23/17) Patient Home Medication List Home Medication List Reviewed: Yes Cephalexin (Keflex) 500 Mg Capsule, 500 MG PO TID Prescribed by: GARY LYONS on 10/27/18 1019 Doxycycline Hyclate (Doxycycline Hyclate) 100 Mg Tablet, 100 MG PO Q12H Prescribed by: LUKAS CHILDERS on 11/05/18812 Doxycycline Hyclate (Doxycycline Hyclate) 100 Mg Tablet, 100 MG PO BID Prescribed by: YESSI CUMMINGS on 06/14/201999 Ibuprofen (Ibuprofen) 800 Mg Tablet, 800 MG PO Q8H PRN for PAIN Prescribed by: LUKAS CHILDERS on 11/05/18812 Misoprostol (Cytotec) 200 Mcg Tablet, 200 MCG PO Q8H Prescribed by: LUKAS CHILDERS on 11/05/18812 Ondansetron (Ondansetron Odt) 4 Mg Tab.rapdis, 4 MG PO Q6H PRN for NAUSEA/VOMITING Prescribed by: NIGHAT SHARMA on 11/08/192054 Oxycodone HCl/Acetaminophen (Percocet 5-325 mg Tablet) 1 Each Tablet, 1 EACH PO Q6H PRN for PAIN-MODERATE Prescribed by: LUKAS CHILDERS on 11/05/18 0813 Review of Systems Review of Systems Constitutional: No chills, No dizziness, No fever Cardiovascular: Chest Pain Gastrointestinal: Nausea Musculoskeletal: back pain (between shoulder blades) Past Bxpzxgo-Chyfwp-Rnfmcc Hx Patient Social History Tobacco Use?: Yes Smoking Status: Current Everyday Smoker Substance use?: Yes Substance type: Marijuana Alcohol Use?: No Immunizations Up To Date Tetanus Booster (TDap): Less than 5yrs PED Vaccines UTD: Yes Seasonal Allergies Seasonal Allergies: No Past Medical History Surgeries: Yes (D&C) Appendectomy Respiratory: No Cardiac: No Neurological: No Reproductive Disorders: No Female Reproductive Disorders: Denies Sexually Transmitted Disease: No HIV/AIDS: No Genitourinary: No Gastrointestinal: No Musculoskeletal: Yes (CARPAL TUNNEL) Endocrine: Yes (GESTATIONAL DIABETES) Diabetes, Non-Insulin dep HEENT: No Cancer: No Psychosocial: Yes Anxiety Integumentary: No Blood Disorders: No Adverse Reaction/Blood Tranf: No Family Medical History Diabetes mellitus 19 FATHER FH: stroke 19 MOTHER Physical Exam Vital Signs Vital Signs - First Documented 08/31/22 11:12 Temp 36.3 Pulse 74 Resp 16 B/P (MAP) 170/131 (144) Pulse Ox 94 O2 Delivery Room Air Capillary Refill : Less Than 3 Seconds Height, Weight, BMI Height: 5'4.00" Weight: 188lbs. 0oz. [id number]; 33.00 BMI Method:Stated General Appearance: No Apparent Distress, WD/WN Neck: Full Range of Motion, Normal Inspection, Non Tender, Supple Respiratory: Chest Non Tender, Lungs Clear, Normal Breath Sounds, No Accessory Muscle Use, No Respiratory Distress Cardiovascular: Regular Rate, Rhythm, No Edema Gastrointestinal: Normal Bowel Sounds, No Organomegaly, Non Tender, Soft Extremity: Normal Capillary Refill, Normal Inspection Neurologic/Psychiatric: Alert, Oriented x3 Skin: Normal Color, Warm/Dry Progress/Results/Core Measures Results/Orders Lab Results Laboratory Tests Test 08/31/22 11:20 Range/Units White Blood Count 5.4 4.3-11.0 10^3/uL Red Blood Count 5.00 3.80-5.11 10^6/uL Hemoglobin 15.1 11.5-16.0 g/dL Hematocrit 43 35-52 % Mean Corpuscular Volume 85 80-99 fL Mean Corpuscular Hemoglobin 30 25-34 pg Mean Corpuscular Hemoglobin Concent 36 32-36 g/dL Red Cell Distribution Width 11.8 10.0-14.5 % Platelet Count 278 130-400 10^3/uL Mean Platelet Volume 9.5 9.0-12.2 fL Immature Granulocyte % (Auto) 1 % Neutrophils (%) (Auto) 53 42-75 % Lymphocytes (%) (Auto) 38 12-44 % Monocytes (%) (Auto) 7 0-12 % Eosinophils (%) (Auto) 1 0-10 % Basophils (%) (Auto) 1 0-10 % Neutrophils # (Auto) 2.8 1.8-7.8 10^3/uL Lymphocytes # (Auto) 2.1 1.0-4.0 10^3/uL Monocytes # (Auto) 0.4 0.0-1.0 10^3/uL Eosinophils # (Auto) 0.0 0.0-0.3 10^3/uL Basophils # (Auto) 0.0 0.0-0.1 10^3/uL Immature Granulocyte # (Auto) 0.0 0.0-0.1 10^3/uL Prothrombin Time 13.2 12.2-14.7 SEC INR Comment 1.0 0.8-1.4 Activated Partial Thromboplast Time 30 24-35 SEC D-Dimer 0.34 0.00-0.49 UG/ML Sodium Level 136 135-145 MMOL/L Potassium Level 3.7 3.6-5.0 MMOL/L Chloride Level 106 98-107 MMOL/L Carbon Dioxide Level 20 L 21-32 MMOL/L Anion Gap 10 5-14 MMOL/L Blood Urea Nitrogen 6 L 7-18 MG/DL Creatinine 0.75 0.60-1.30 MG/DL Estimat Glomerular Filtration Rate 102 BUN/Creatinine Ratio 8 Glucose Level 122 H 70-105 MG/DL Calcium Level 9.1 8.5-10.1 MG/DL Corrected Calcium 8.9 8.5-10.1 MG/DL Magnesium Level 2.0 1.6-2.4 MG/DL Total Bilirubin 0.4 0.1-1.0 MG/DL Aspartate Amino Transf (AST/SGOT) 21 5-34 U/L Alanine Aminotransferase (ALT/SGPT) 31 0-55 U/L Alkaline Phosphatase 91 40-136 U/L Myoglobin 21.5 10.0-92.0 NG/ML Troponin I < 0.028 <0.028 NG/ML B-Type Natriuretic Peptide 30.3 <100.0 PG/ML Total Protein 7.3 6.4-8.2 GM/DL Albumin 4.2 3.2-4.5 GM/DL Lipase 31 8-78 U/L My Orders Orders - CHRISTIE JEAN APRN Cbc With Automated Diff (08/31/22 11:40) Magnesium (08/31/22 11:40) Chest 1 View, Ap/Pa Only (08/31/22 11:40) Comprehensive Metabolic Panel (08/31/22 11:40) Myoglobin Serum (08/31/22 11:40) Protime With Inr (08/31/22 11:40) Partial Thromboplastin Time (08/31/22 11:40) O2 (08/31/22 11:40) Monitor-Rhythm Ecg Trace Only (08/31/22 11:40) Ed Iv/Invasive Line Start (08/31/22 11:40) Lipase (08/31/22 11:40) Bnp Melisa (08/31/22 11:40) Fibrin Degradation Products (08/31/22 11:40) Troponin I Melisa (08/31/22 11:40) Aspirin Chewable Tablet (Baby Aspirin Ch (08/31/22 11:45) Ondansetron Injection (Zofran Injectio (08/31/22 12:00) Ketorolac Injection (Toradol Injection) (08/31/22 12:00) Ns Iv 1000 Ml (Sodium Chloride 0.9%) (08/31/22 12:15) Medications Given in ED Current Medications Medications Dose Ordered Sig/Margot Route Start Time Stop Time Status Last Admin Dose Admin Aspirin 324 mg ONCE ONCE PO 08/31/22 11:45 08/31/22 11:46 DC 08/31/22 11:45 324 MG Ketorolac Tromethamine 30 mg ONCE ONCE IVP 08/31/22 12:00 08/31/22 12:01 DC 08/31/22 12:03 30 MG Ondansetron HCl 4 mg ONCE ONCE IVP 08/31/22 12:00 08/31/22 12:01 DC 08/31/22 12:02 4 MG Vital Signs/I&O 08/31/22 08/31/22 11:12 13:21 Temp 36.3 Pulse 74 58 Resp 16 16 B/P (MAP) 170/131 (144) 152/93 Pulse Ox 94 98 O2 Delivery Room Air Room Air Blood Pressure Mean: 144 Progress Progress Note : Progress Note 1213: Reviewed labs. Will give liter of IVF. Appears to be a little dry. Labs otherwise look okay at this time. 1317: Spoke to patient in regards to labs and home treatments. Discussed with her that labs overall look okay and she is able to be discharged home. Reasons to return to the ER were discussed with patient in addition. Initial ECG Impression Date: Aug 31, 2022 Initial ECG Impression Time: 11:19 Initial ECG Rate: 67 Initial ECG Rhythm: Normal Sinus Initial ECG Intervals: Normal Diagnostic Imaging Diagonstic Imaging: Xray Plain Films/CT/US/NM/MRI: chest Comments NAME: [facility] REC#: [id number] PT STATUS: DEP ER : [id number] PHYSICIAN: CHRISTIE JEAN APRN ADMIT DATE: 08/31/22/ER Signed Date of Exam:08/31/22 CHEST 1 VIEW, AP/PA ONLY INDICATION: Chest pain. Frontal chest obtained at 11:52 a.m. There is no prior study for comparison. FINDINGS: Heart and mediastinal silhouette are normal in appearance. The lungs are clear. There is no pneumothorax or pleural fluid. IMPRESSION: Negative chest. Dictated by: Dictated on workstation # [id number] Dict: 08/31/22 1211 Trans: 08/31/22 1342 [id number] Interpreted by: MARIAH BURGOS MD Electronically signed by: MARIAH BURGOS MD 08/31/22 1342 Departure Impression Primary Impression: Chest pain Qualified Codes: R07.9 - Chest pain, unspecified Disposition: 01 HOME, SELF-CARE Condition: Stable Departure-Patient Inst. Decision time for Depature: 13:18 Referrals: LAZ DENSON MD (PCP/Family) Primary Care Physician Patient Instructions: Chest Pain That Is Not Caused by the Heart (DC) Add. Discharge Instructions: 1. Home and rest. 2. Push fluids. 3. Alternate Tylenol/Ibuprofen as needed for pain or fever. 4. Follow up with PCP as needed. 5. Return here if worse or concerns. All discharge instructions reviewed with patient and/or family. Voiced understanding. CHRISTIE JEAN APRN Aug 31, 2022 11:37
[2022-08-31] MEDS ORDERED: ASPIRIN 81 MG CHEW (CHILDREN'S ASA) PO ONE (11:45)
[2022-08-31 11:47] LABS: BASOPHILS % (AUTO) 1 % (0-10); EOSINOPHILS % (AUTO) 1 % (0-10); HEMATOCRIT 43 % (35-52); HEMOGLOBIN 15.1 g/dL (11.5-16.0); LYMPHOCYTES # (AUTO) 2.1 10^3/uL (1.0-4.0); LYMPHOCYTES % (AUTO) 38 % (12-44); MEAN CORPUSCULAR HEMOGLOBIN 30 pg (25-34); MEAN CORPUSCULAR HGB CONC 36 g/dL (32-36); MEAN CORPUSCULAR VOLUME 85 fL (80-99); MEAN PLATELET VOLUME 9.5 fL (9.0-12.2); MONOCYTES # (AUTO) 0.4 10^3/uL (0.0-1.0); MONOCYTES % (AUTO) 7 % (0-12); NEUTROPHILS # (AUTO) 2.8 10^3/uL (1.8-7.8); NEUTROPHILS % (AUTO) 53 % (42-75); PLATELET COUNT 278 10^3/uL (130-400); WHITE BLOOD COUNT 5.4 10^3/uL (4.3-11.0)
[2022-08-31 11:52] LABS: ALBUMIN 4.2 GM/DL (3.2-4.5); PROTHROMBIN TIME PATIENT 13.2 SEC (12.2-14.7)
[2022-08-31 11:53] LABS: POTASSIUM 3.7 MMOL/L (3.6-5.0)
[2022-08-31 11:54] LABS: CALCIUM 9.1 MG/DL (8.5-10.1)
[2022-08-31 11:55] LABS: TOTAL PROTEIN 7.3 GM/DL (6.4-8.2)
[2022-08-31 11:57] LABS: BILIRUBIN,TOTAL 0.4 MG/DL (0.1-1.0)
[2022-08-31 11:59] LABS: CREATININE SERUM 0.75 MG/DL (0.60-1.30)
[2022-08-31] MEDS ORDERED: KETOROLAC 30 MG/ML VIAL IVP ONE (12:00)
[2022-08-31] MEDS ORDERED: ONDANSETRON 4 MG/2 ML (SDV) Z0FRAN IVP ONE (12:00)
[2022-08-31] MEDS ORDERED: NS IV 1000 ML 1,000 ML IV SCH (12:15)
--- NOTE | 2022-08-31 12:15 | Diagnostic Imaging Report ---
INDICATION: Chest pain. Frontal chest obtained at 11:52 a.m. There is no prior study for comparison. FINDINGS: Heart and mediastinal silhouette are normal in appearance. The lungs are clear. There is no pneumothorax or pleural fluid. IMPRESSION: Negative chest. Dictated by: Dictated on workstation # [id number]
[2022-08-31 13:21] VITALS: BP 152/93
== END 2022-08-31 13:21 | disposition home or self-care (01) ==
LOC: EDUNIT# 11:12 → ER 11:13
DX: R07.2 Precordial pain (principal); F17.200 Nicotine dependence, unspecified, uncomplicated; Z28.310 Unvaccinated for COVID-19
CPT/HCPCS: 36415; 71045; 80053; 83690; 83735; 83874; 83880; 84484; 84703; 85025; 85379; 85610; 85730; 93005; 93041

== ENCOUNTER → 2022-10-11 | Outpatient (CLI) | payer OTHER ==
[2022-10-11 10:25] VITALS: BP 132/89
--- NOTE | 2022-10-11 17:53 | Cardiology Stress Test Report ---
Stress Test Report Date of Procedure/Referring: Date of Procedure: Oct 11, 2022 PCP Bernice Crane MD Admitting Physician Admitting Physician: Attending Physician: Albert Gardiner MD Indications: HTN Baseline Heart Rate: 59 Baseline Blood Pressure: Blood Pressure Systolic: 132 Blood Pressure Diastolic: 89 Baseline EKG: Baseline EKG: NSR Summary/Conclusion: Summary: In summary, the patient started exercising with a baseline heart rate, blood pressure and EKG mentioned above Patient was able to exercise for a total of 9 minutes on Ayaan protocol, METs 10.5 Maximum heart rate 153 Maximum blood pressure 212/108 Stress EKG, Minimal nondiagnostic changes Recovery EKG , Return to baseline Conclusion: 1. Good exercise tolerance for a total of 9 minutes on Ayaan protocol, 10.5 METs, achieving 85 percent of maximum expected heart rate 2. Minimal nondiagnostic EKG changes with exercise returned to baseline during recovery 3. No arrhythmia was noted Copy Copies To 1: [facility] [place] GARDINER MD Oct 11, 2022 17:53
== END ==
LOC: CARD 08:27
PROVIDERS: ATTEND Internal Medicine Cardiovascular Disease
DX: I10 Essential (primary) hypertension (principal); I25.10 Atherosclerotic heart disease of native coronary artery without angina pectoris
CPT/HCPCS: 93017; 93306

== ENCOUNTER 2023-01-17 21:14 | Emergency (ER) | payer OTHER ==
[~2023-01-17] VITALS: Ht 162.6 cm; Wt 83.0 kg
[2023-01-17] MEDS ORDERED: NS IV 1000 ML 1,000 ML IV STA (21:53)
--- NOTE | 2023-01-17 21:58 | ED Abdominal Pain ---
General Chief Complaint: Abdominal/GI Problems Stated Complaint: DIARRHEA|CRAMPING Nursing Triage Note: PT AMB TO TRIAGE W C/O DIARRHEA AND LOWER ABD PAIN/CRAMPING THAT BEGAN THIS AM, DENIES VOMITING, C/O NAUSEA AND BACK PAIN THAT BEGAN THIS EVENING. PT A&OX4. Source of Information: Patient Exam Limitations: No Limitations History of Present Illness Date Seen by Provider: Jan 17, 2023 Time Seen by Provider: 21:57 Initial Comments Patient is a 42-year-old female who presents ED with diarrhea, lower abdominal pain and cramping. This started this morning when she woke up. She states the cramping has been constant rated 8 out of 10. She states she started having loose stool this morning. She reports 10+ episodes of watery diarrhea with mucus. She is concerned for some bright red blood in the bowel of the toliet and with wiping. She reports nausea without vomiting. History of appendectomy. She states this pain feels very similar to when she had colitis. She recently finished 2 different antibiotics 2 weeks ago. She cannot recall the antibiotic. She was being treated for Bartholin cyst. Patient denies chest pain, cough, fever, chills, headache, dizziness. She denies taking anything for pain. Patient in moderate distress. Allergies and Home Medications Allergies Coded Allergies: No Known Drug Allergies (Unverified , 02/23/17) Patient Home Medication List Home Medication List Reviewed: Yes Cephalexin (Keflex) 500 Mg Capsule, 500 MG PO TID Prescribed by: GARY LYONS on 10/27/18 1019 Doxycycline Hyclate (Doxycycline Hyclate) 100 Mg Tablet, 100 MG PO Q12H Prescribed by: LUKAS CHILDERS on 11/05/18812 Doxycycline Hyclate (Doxycycline Hyclate) 100 Mg Tablet, 100 MG PO BID Prescribed by: YESSI CUMMINGS on 06/14/201999 Ibuprofen (Ibuprofen) 800 Mg Tablet, 800 MG PO Q8H PRN for PAIN Prescribed by: LUKAS CHILDERS on 11/05/18812 Metronidazole (Metronidazole) 500 Mg Tablet, 500 MG PO TID Prescribed by: JORDAN DIALLO on 01/18/2312 Misoprostol (Cytotec) 200 Mcg Tablet, 200 MCG PO Q8H Prescribed by: LUKAS CHILDERS on 11/05/18812 Ondansetron (Ondansetron Odt) 4 Mg Tab.rapdis, 4 MG PO Q6H PRN for NAUSEA/VOMITING Prescribed by: NIGHAT SHARMA on 11/08/192054 Ondansetron (Ondansetron Odt) 4 Mg Tab.rapdis, 4 MG SL Q4H PRN for N AUSEA/VOMITING Prescribed by: JORDAN DIALLO on 01/18/23 001 Oxycodone HCl/Acetaminophen (Percocet 5-325 mg Tablet) 1 Each Tablet, 1 EACH PO Q6H PRN for PAIN-MODERATE Prescribed by: LUKAS CHILDERS on 11/05/18812 Review of Systems Review of Systems Constitutional: No chills, No diaphoresis; weakness EENTM: No Double Vision, No Eye Pain Respiratory: Denies Cough, Denies Orthopnea Cardiovascular: Denies Chest Pain Gastrointestinal: Blood Streaked Stools; Denies Constipated; Diarrhea, Nausea; Denies Vomiting Genitourinary: Denies Burning, Denies Discharge, Denies Drainage, Denies Frequency Musculoskeletal: No back pain, No joint pain Skin: No change in color, No change in hair/nails All Other Systems Reviewed Negative Unless Noted: Yes Past Luuswsk-Ktgdhn-Rvsegh Hx Patient Social History Tobacco Use?: No Use of E-Cig and/or Vaping dev: No Substance use?: Yes Substance type: Marijuana Alcohol Use?: No Immunizations Up To Date Tetanus Booster (TDap): Less than 5yrs PED Vaccines UTD: Yes Influenza Vaccine Up-to-Date: No; Not Current First/Initial COVID19 Vaccinat: NONE Second COVID19 Vaccination Bill: NONE Third COVID19 Vaccination Date: NONE COVID19 Vaccine Professor Of Psychology: NONE Seasonal Allergies Seasonal Allergies: No Past Medical History Surgery/Hospitalization HX: APPENDECTOMY Surgeries: Yes (D&C) Appendectomy Respiratory: No Cardiac: No Neurological: No Reproductive Disorders: No Female Reproductive Disorders: Denies Sexually Transmitted Disease: No HIV/AIDS: No Genitourinary: No Gastrointestinal: No Musculoskeletal: Yes (CARPAL TUNNEL) Endocrine: Yes (GESTATIONAL DIABETES) Diabetes, Non-Insulin dep HEENT: No Cancer: No Psychosocial: Yes Anxiety Integumentary: No Blood Disorders: No Adverse Reaction/Blood Tranf: No Family Medical History Diabetes mellitus 19 FATHER FH: stroke 19 MOTHER Physical Exam Vital Signs Vital Signs - First Documented 01/17/23 21:35 Temp 36.8 Pulse 83 Resp 20 B/P (MAP) 168/93 (118) Pulse Ox 98 O2 Delivery Room Air Capillary Refill : Less Than 3 Seconds Height/Weight/BMI Height: 5'4.00" Weight: 188lbs. 0oz. 85.401842gp; 31.00 BMI Method:Stated General Appearance: WD/WN, mild distress HEENT: PERRL/EOMI, normal ENT inspection, TMs normal, pharynx normal Neck: non-tender, full range of motion, supple Respiratory: chest non-tender, lungs clear, normal breath sounds, no respiratory distress, no accessory muscle use Cardiovascular: regular rate, rhythm, no edema, no gallop, no JVD Gastrointestinal: normal bowel sounds, soft, no organomegaly, no pulsatile mass, tenderness (Left lower quadrant tenderness) Extremities: normal range of motion, non-tender, normal inspection, no pedal edema Back: normal inspection, no CVA tenderness 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, no motor/sensory deficits, alert, normal mood/affect, oriented x 3 Skin: normal color, warm/dry Progress/Results/Core Measures Results/Orders Lab Results Laboratory Tests Test 01/17/23 22:22 01/17/23 22:29 Range/Units White Blood Count 12.1 H 4.3-11.0 10^3/uL Red Blood Count 5.04 3.80-5.11 10^6/uL Hemoglobin 14.9 11.5-16.0 g/dL Hematocrit 42 35-52 % Mean Corpuscular Volume 84 80-99 fL Mean Corpuscular Hemoglobin 30 25-34 pg Mean Corpuscular Hemoglobin Concent 35 32-36 g/dL Red Cell Distribution Width 12.0 10.0-14.5 % Platelet Count 376 130-400 10^3/uL Mean Platelet Volume 9.5 9.0-12.2 fL Immature Granulocyte % (Auto) 1 % Neutrophils (%) (Auto) 72 42-75 % Lymphocytes (%) (Auto) 22 12-44 % Monocytes (%) (Auto) 4 0-12 % Eosinophils (%) (Auto) 1 0-10 % Basophils (%) (Auto) 1 0-10 % Neutrophils # (Auto) 8.7 H 1.8-7.8 10^3/uL Lymphocytes # (Auto) 2.7 1.0-4.0 10^3/uL Monocytes # (Auto) 0.5 0.0-1.0 10^3/uL Eosinophils # (Auto) 0.1 0.0-0.3 10^3/uL Basophils # (Auto) 0.1 0.0-0.1 10^3/uL Immature Granulocyte # (Auto) 0.1 0.0-0.1 10^3/uL Sodium Level 139 135-145 MMOL/L Potassium Level 3.7 3.6-5.0 MMOL/L Chloride Level 107 98-107 MMOL/L Carbon Dioxide Level 19 L 21-32 MMOL/L Anion Gap 13 5-14 MMOL/L Blood Urea Nitrogen 8 7-18 MG/DL Creatinine 0.77 0.60-1.30 MG/DL Estimat Glomerular Filtration Rate 99 BUN/Creatinine Ratio 10 Glucose Level 112 H 70-105 MG/DL Calcium Level 9.6 8.5-10.1 MG/DL Corrected Calcium 9.4 8.5-10.1 MG/DL Total Bilirubin 0.4 0.1-1.0 MG/DL Aspartate Amino Transf (AST/SGOT) 23 5-34 U/L Alanine Aminotransferase (ALT/SGPT) 42 0-55 U/L Alkaline Phosphatase 94 40-136 U/L C-Reactive Protein High Sensitivity 0.13 0.00-0.50 MG/DL Total Protein 7.7 6.4-8.2 GM/DL Albumin 4.3 3.2-4.5 GM/DL Lipase 48 8-78 U/L Urine Color YELLOW Urine Clarity CLEAR Urine pH 6.0 5-9 Urine Specific [place] >=1.030 1.016-1.022 Urine Protein NEGATIVE NEGATIVE Urine Glucose (UA) NEGATIVE NEGATIVE Urine Ketones NEGATIVE NEGATIVE Urine Nitrite NEGATIVE NEGATIVE Urine Bilirubin NEGATIVE NEGATIVE Urine Urobilinogen 0.2 < = 1.0 MG/DL Urine Leukocyte Esterase NEGATIVE NEGATIVE Urine RBC (Auto) 2+ H NEGATIVE Urine RBC 2-5 H /HPF Urine WBC 2-5 /HPF Urine Squamous Epithelial Cells 25-50 H /HPF Urine Crystals NONE /LPF Urine Bacteria FEW H /HPF Urine Casts PRESENT /LPF Urine Hyaline Casts RARE /LPF Urine Mucus MODERATE H /LPF Urine Culture Indicated NO Urine Test NEGATIVE NEGATIVE My Orders Orders - EMMY BRUNER Cbc With Automated Diff (01/17/23 21:53) Comprehensive Metabolic Panel (01/17/23 21:53) Lipase (01/17/23 21:53) Hs C Reactive Protein (01/17/23 21:53) Ns Iv 1000 Ml (Sodium Chloride 0.9%) (01/17/23 21:53) Ua Culture If Indicated (01/17/23 21:54) Hcg,Qualitative Urine (01/17/23 21:54) Fecal Wbc (01/17/23 21:55) Ct Abdomen/Pelvis W (01/17/23 21:56) Ketorolac Injection (Toradol Injection) (01/17/23 22:00) Iohexol Injection (Omnipaque 350 Mg/Ml 1 (01/17/23 22:45) Received Contrast (Hold Metformin- Contr (01/17/23 22:45) Ns (Ivpb) (Sodium Chloride 0.9% Ivpb Bag (01/17/23 22:45) Medications Given in ED Vital Signs/I&O 01/17/23 01/18/23 21:35 00:20 Temp 36.8 Pulse 83 79 Resp 20 18 B/P (MAP) 168/93 (118) 148/83 Pulse Ox 98 96 O2 Delivery Room Air Room Air Blood Pressure Mean: 118 Departure Communication (PCP) Patient is a 42-year-old female who presents to ED lower abdominal cramping, loose stools with mucous and bright red bloody stools. Denies of any dark tarry stool. History of appendectomy. No urinary symptoms. Mild to moderate distress on arrival. Due to current complaint CBC, CMP, lipase, urinalysis was initiated. Recent antibiotic use 2 weeks ago. Concerning for potential C. difficile. She reports of burping sensation. Stool culture, C. difficile panel was initiated. She Was not able to provide a stool sample. CBC showed slight elevated white blood count. Hematology and chemistry otherwise unremarkable. Urinalysis without strong evidence of urinary tract infection. Was given a dose of fentanyl and a liter of fluid here in the ED with improvement of her symptoms. She attempted to have a bowel movement was unsuccessful. Due to location of pain, CT abdomen pelvis was ordered. Differential diagnosis of colitis, diverticulitis, infectious diarrhea, urinary tract infection. CT abdomen pelvis concerning for colitis infectious versus inflammatory. Denies history of inflammatory bowel disease. History of colitis in the past. Due to to her recent antibiotic use suspect and concern for C. difficile. Discussed starting Flagyl at this point. I did provide a stool cup for her to take at home. Contact pcp for outpatient order and to send this to the lab for further evaluation. Discussed starting vancomycin p.o but will wait until stool culture. Flagyl would cover other infectious etiology with the colitis as well as C-diff. Recommend returning if pain worsens, increasing diarrhea. Provided Zofran. Recommend hydration. Discussed clear liquids for the next few days and then work into more of a bland diet. No evidence of toxic megacolon, obstruction, diverticulitis on CT scan. Impression Primary Impression: Abdominal pain Disposition: HOME, SELF-CARE Condition: Stable Departure-Patient Inst. Decision time for Depature: 23:21 Referrals: LAZ DENSON MD (PCP/Family) Primary Care Physician Patient Instructions: Colitis (DC) Add. Discharge Instructions: If continued diarrhea recommend sample and call your primary care physician to get a outpatient test performed. Provided Flagyl as a alternative for the time being. If diarrhea stops and symptoms improved, do not necessarily recommend taking antibiotics at this time until we have proof of the type of infection. All discharge instructions reviewed with patient and/or family. Voiced understanding. Scripts Ondansetron (Ondansetron Odt) 4 Mg Tab.rapdis 4 MG SL Q4H PRN for NAUSEA/VOMITING, #6 TAB Prov: EMMY BRUNER 01/18/23 Metronidazole (Metronidazole) 500 Mg Tablet 500 MG PO TID for 10 Days, #30 TAB Prov: EMMY BRUNER 01/18/23 EMMY BRUNER Jan 17, 2023 21:58
[2023-01-17] MEDS ORDERED: KETOROLAC 30 MG/ML VIAL IVP ONE (22:00)
[2023-01-17 22:30] LABS: BASOPHILS # (AUTO) 0.1 10^3/uL (0.0-0.1); BASOPHILS % (AUTO) 1 % (0-10); EOSINOPHILS # (AUTO) 0.1 10^3/uL (0.0-0.3); EOSINOPHILS % (AUTO) 1 % (0-10); HEMATOCRIT 42 % (35-52); HEMOGLOBIN 14.9 g/dL (11.5-16.0); LYMPHOCYTES # (AUTO) 2.7 10^3/uL (1.0-4.0); LYMPHOCYTES % (AUTO) 22 % (12-44); MEAN CORPUSCULAR HEMOGLOBIN 30 pg (25-34); MEAN CORPUSCULAR HGB CONC 35 g/dL (32-36); MEAN CORPUSCULAR VOLUME 84 fL (80-99); MEAN PLATELET VOLUME 9.5 fL (9.0-12.2); MONOCYTES # (AUTO) 0.5 10^3/uL (0.0-1.0); MONOCYTES % (AUTO) 4 % (0-12); NEUTROPHILS # (AUTO) 8.7 10^3/uL (1.8-7.8); NEUTROPHILS % (AUTO) 72 % (42-75); PLATELET COUNT 376 10^3/uL (130-400); WHITE BLOOD COUNT 12.1 10^3/uL (4.3-11.0)
[2023-01-17 22:34] LABS: BILIRUBIN,URINE NEGATIVE (NEGATIVE); CLARITY,URINE CLEAR; COLOR,URINE YELLOW; GLUCOSE, URINE (UA) NEGATIVE (NEGATIVE); KETONES,URINE NEGATIVE (NEGATIVE); LEUKOCYTE ESTERASE ,URINE NEGATIVE (NEGATIVE); NITRITE,URINE NEGATIVE (NEGATIVE); PROTEIN,URINE NEGATIVE (NEGATIVE)
[2023-01-17 22:38] LABS: ALBUMIN 4.3 GM/DL (3.2-4.5); POTASSIUM 3.7 MMOL/L (3.6-5.0)
[2023-01-17 22:39] LABS: CALCIUM 9.6 MG/DL (8.5-10.1)
[2023-01-17 22:40] LABS: TOTAL PROTEIN 7.7 GM/DL (6.4-8.2)
[2023-01-17 22:42] LABS: BILIRUBIN,TOTAL 0.4 MG/DL (0.1-1.0)
[2023-01-17 22:44] LABS: CREATININE SERUM 0.77 MG/DL (0.60-1.30)
[2023-01-17] MEDS ORDERED: IOHEXOL 350 MG/ML 100 ML (OMNIPAQUE 350) VIAL IV ONE (22:45)
[2023-01-17] MEDS ORDERED: NS 100 ML (IVPB) BAG IV ONE (22:45)
[2023-01-17] MEDS ORDERED: HOLD METFORMIN - RECEIVED CONTRAST 20 ML VIAL IV SCH (22:45)
[2023-01-17 23:00] LABS: BACTERIA,URINE FEW /HPF; HYALINE CASTS, URINE RARE /LPF; SQUAMOUS EPITHELIAL CELL,UR 25-50 /HPF
[2023-01-18] MEDS ORDERED: ONDA4TAB11 SL (00:13)
[2023-01-18] MEDS ORDERED: METR-145 PO (00:13)
[2023-01-18 00:20] VITALS: BP 148/83
--- NOTE | 2023-01-18 06:13 | Diagnostic Imaging Report ---
EXAMINATION: CT abdomen and pelvis with intravenous contrast. TECHNIQUE: Multiple contiguous axial images were obtained through the abdomen and pelvis after the uneventful administration of intravenous contrast. All CT scans use one or more of the following dose optimizing techniques: automated exposure control, MA and/or KvP adjustment based on patient size and exam type or iterative reconstruction. HISTORY: llq abd pain, COMPARISON: None available. FINDINGS: Lung bases: The lung bases are clear. Solid organs: The liver is normal without focal lesion. The gallbladder is normal. There is no biliary ductal dilation. Pancreas is normal. Spleen is normal. Adrenal glands are normal. The kidneys are normal without hydronephrosis. Bowel: The stomach and small bowel are normal without obstruction. There is abnormal wall thickening seen within the transverse colon. No findings of acute appendicitis. Peritoneum: There is no intraperitoneal free fluid or free air. No suspicious lymphadenopathy. Vasculature: Normal without aneurysm. Musculoskeletal: No suspicious osseous lesion or compression fracture. There are bilateral L5 pars defects. Pelvis: The uterus and adnexa are normal. The urinary bladder is normal. IMPRESSION: 1. Wall thickening of the transverse colon which can be seen with infectious or inflammatory colitis. 2. Agree with preliminary interpretation. Dictated by: Dictated on workstation # [id number]
== END 2023-01-18 00:20 | disposition home or self-care (01) ==
LOC: EDUNIT# 21:14 → ER 21:16
DX: R10.32 Left lower quadrant pain (principal); D72.829 Elevated white blood cell count, unspecified; Z90.49 Acquired absence of other specified parts of digestive tract; Z28.310 Unvaccinated for COVID-19
CPT/HCPCS: 36415; 74177; 80053; 81000; 83690; 84703; 85025; 86141